=== PATIENT | female | born 1965 | race Two or more races ===

== ENCOUNTER 2024-04-12 20:10 | Emergency (ER) | payer OTHER ==
[~2024-04-12] VITALS: Ht 165.1 cm; Wt 145.9 kg
[2024-04-12] MEDS ORDERED: LACT10SO3 PO (21:28)
[2024-04-12 21:46] VITALS: TEMP 99.2; O2SAT 95
[2024-04-12 21:49] LABS: Urine Bacteria None Seen /hpf (None Seen)
[2024-04-12 22:09] LABS: Urine Blood Negative /uL (Negative); Urine Clarity Clear (Clear); Urine Color Light-Yellow (Yellow); Urine Protein, UAD TRACE (Negative); Urine Specific Gravity 1.023 (1.001-1.035); Urine Urobilinogen Normal (Negative); Urine WBC <1 /hpf (0 - 5); Urine pH 7.5 (5.0-9.0)
[2024-04-12] MEDS: HYDROmorphone HCL 2 MG/ML VL/or syr IM ONE (23:05)
[2024-04-12 23:44] VITALS: BP 166/88; PULSE 87; RESP 18
== END 2024-04-13 00:01 | disposition home or self-care (01) ==
LOC: ER 20:10
DX: M54.41 Lumbago with sciatica, right side (principal); M54.42 Lumbago with sciatica, left side; K59.00 Constipation, unspecified; G89.29 Other chronic pain; E66.01 Morbid (severe) obesity due to excess calories; Z68.43 Body mass index [BMI] 50.0-59.9, adult
CPT/HCPCS: 81001; 96372; 99283; J1171

== ENCOUNTER 2024-05-24 10:56 | Inpatient (IN) | payer OTHER ==
[~2024-05-24] VITALS: Ht 165.1 cm; Wt 138.1 kg
[~2024-05-24 10:56] MED LIST: LACT10SO3 PO
--- NOTE | 2024-05-24 11:28 | ECG ---
[facility] Test Date: 2024-05-24 Test Time: 11:08:47 Pat Name: LETI NEW Department: ER Room: [address] [place] [address] Gender: F Staff Interpreter: AIDEN : 1965 Requested By: EMERGENCY EMERGENCY Order Number: [id number] Reading MD: Bandar Corrigan Measurements Intervals [place] Rate: 113 P: 66 IL: 143 QRS: 31 QRSD: 105 T: 74 QT: 313 QTc: 430 Interpretive Statements Sinus tachycardia Right atrial enlargement Electronically Signed On 05-26-2024 8:25:13 PST by Bandar Corrigan Please click the below link to view image of tracing.
[2024-05-24 11:59] LABS: Urine Bacteria FEW /hpf (None Seen); Urine Blood Negative /uL (Negative); Urine Clarity Turbid (Clear); Urine Color Yellow (Yellow); Urine Mucus FEW (None Seen); Urine Protein, UAD 2+ (Negative); Urine Specific Gravity 1.025 (1.001-1.035); Urine Urobilinogen Normal (Negative); Urine WBC 6 /hpf (0 - 5); Urine pH 5.5 (5.0-9.0)
[2024-05-24 12:10] LABS: Basophils # (auto) 0 10 ^3/uL (0-0.2); Basophils % (auto) 0.2 % (0.0-2.0); Eosinophils # (auto) 0 10 ^3/uL (0-0.8); Eosinophils % (auto) 0.3 % (0.0-7.0); Hemoglobin 12.5 g/dL (12.2-16.2); Lymphocytes # (auto) 0.3 10 ^3/uL (0.4-5.4); Lymphocytes % (auto) 1.9 % (10.0-50.0); Mean Corpuscular Hemoglobin 29.6 pg (28.0-32.0); Mean Corpuscular Volume 89.7 fL (80.0-100.0); Monocytes # (auto) 0.4 10 ^3/uL (0-1.3); Monocytes % (auto) 3.4 % (0.0-12.0); Neutrophils # (auto) 12.3 10 ^3/uL (1.6-8.6); Neutrophils % (auto) 94.2 % (37.0-80.0); Platelet Count (auto) 195 10^3/uL (140-450); Red Blood Cells 4.23 10^6/uL (4.0-5.20); Red Cell Distribution Width 14.2 % (11.8-14.3)
[2024-05-24 12:25] LABS: Alanine Aminotransferase 16 U/L (7-40); Albumin 4.1 g/dL (3.2-4.8); Alkaline Phosphatase 95 U/L (46-116); Anion Gap 8 (5-15); Aspartate Aminotransferase 16 U/L (13-40); BUN/Creatinine Ratio 14.9 (10.0-20.0); Bilirubin, Total 0.5 mg/dL (0.2-1.0); Blood Urea Nitrogen 15 mg/dL (9-23); Calcium 9.9 mg/dL (8.7-10.4); Carbon Dioxide 25 mmol/L (20-31); Chloride 102 mmol/L (98-107); Glucose 161 mg/dL (74-106); Potassium 4.2 mmol/L (3.5-5.1); Sodium 135 mmol/L (136-145); Total Protein 7.1 g/dL (5.7-8.2)
[2024-05-24 12:27] LABS: Lactic Acid w/Reflex 2.2 mmol/L (0.4-2.0)
--- NOTE | 2024-05-24 12:48 | ED.PDOC ---
Musculoskeletal HPI Comments 58-year-old female complaining of bilateral leg pain and swelling for the last three weeks. States the right side has become worse than the left. States she was has not noticed some intermittent fatigue. Intermittent chest pains that are sharp in nature lasting 20 seconds. Patient does come in with fever and tachycardia. States she does have a prior history of lymphedema but no CHF. She was taking 20 mg Lasix but has not been taking it over the last few weeks into sinus started taking it again today. Chief Complaint: Extremity Swelling Time Seen by MD: 11:01 Primary Care Provider: OSCAR Davis Notes: Nurses Notes Allergies: Coded Allergies: Amoxicillin (Verified Allergy, Unknown, 05/24/24) Doxycycline (Verified Allergy, Unknown, 05/24/24) Uncoded Allergies: FLU SHOT (Allergy, Unknown, 05/24/24) Home Meds Active Scripts Lactulose (Lactulose) 10 Gm/15 Ml Johana, 10 GM PO Q8HP PRN, #200 ML Prov:CORRIE VICENTE PAC 04/12/24 Information Source: Patient Mode of Arrival: Ambulatory Location: Bilateral Extremity Location: Leg Past Medical History PAST MEDICAL HISTORY: Denies Surgical History: Denies all surgeries DRUG ABUSE WORKER History: No Pertinent DRUG ABUSE WORKER History Family History Family History: Reviewed,noncontributory to illness, No family hx of Cancer, No family hx of DM, No family hx of Heart zachery, No family hx of HTN, No family hx ofKidney zachery, No family hx of Liver zachery, No family hx of Lung zachery, No family hx of Stroke Social History Smoker: Non-Smoker Alcohol: Denies ETOH Use Drugs: Denies Drug Use Lives In: Home Constitutional: denies: chills, diaphoresis, fatigue, fever, malaise, sweats, weakness, others EENTM: denies: blurred vision, double vision, ear bleeding, ear discharge, ear drainage, ear pain, ear ringing, eye pain, eye redness, hearing loss, mouth pain, mouth swelling, nasal discharge, nose bleeding, nose congestion, nose pain, photophobia, tearing, throat pain, throat swelling, voice changes, others Respiratory: reports: SOB at rest; denies: cough, hemoptysis, orthopnea, shortness of breath, SOB with excertion, stridor, wheezing, others Cardiovascular: reports: chest pain; denies: dizzy spells, diaphoresis, Dyspnea on exertion, edema, irregular heart beat, left arm pain, lightheadedness, palpitations, PND, syncope, others Gastrointestinal: denies: abdomen distended, abdominal pain, blood streaked bowels, constipated, diarrhea, dysphagia, difficulty swallowing, hematemesis, melena, nausea, poor appetite, poor fluid intake, rectal bleeding, rectal pain, vomiting, others Genitourinary: denies: abnormal vagina bleeding, burning, dyspareunia, dysuria, flank pain, frequency, hematuria, incontinence, pain, , vagina discharge, urgency, others Neurological: denies: dizziness, fainting, headache, left sided numbness, left sided weakness, numbness, paresthesia, pre-existing deficit, right sided numbnes s, right sided weakness, seizure, speech problems, tingling, tremors, weakness, others Musculoskeletal: denies: back pain, gout, joint pain, joint swelling, muscle pain, muscle stiffness, neck pain, others Integumetry: denies: bruises, change in color, change in hair/nails, dryness, laceration, lesions, lumps, rash, wounds, others Allergic/Immunocompromised: denies: Difficulty Healing, Frequent Infections, Hives, Itching, others Hematologic/Lymphatic: denies: anemia, blood clots, easy bleeding, easy bruising, swollen glands, others Physical Exam General Appearance: No Apparent Distress, Normal HEENT: Normal ENT Inspection, Pharynx Normal, TMs Normal Neck: Full Range of Motion, Non-Tender, Normal, Normal Inspection Respiratory: Chest Non-Tender, Lungs Clear, No Accessory Muscle Use, No Respiratory Distress, Normal Breath Sounds Cardiovascular: No Edema, No JVD, No Murmur, No Gallop, Normal Peripheral Pulses, Regular Rate/Rhythm Breast Exam: Deferred Gastrointestinal: No Organomegaly, Non Tender, No Pulsatile Mass, Normal Bowel Sounds, Soft Genitalia: Deferred Pelvic: Deferred Rectal: Deferred Extremities: No calf tenderness, Normal capillary refill, Normal inspection, Normal range of motion, Non-tender, No pedal edema Musculoskeletal : Location: Bilateral Extremity Location: Other (Lymphedema noted in bilateral lower extremities. Erythemic noted going up to mid shaft in bilateral lower extremities. Bilateral anterior lower extremities are warm to the touch. There is weeping noted on the right lower extremity.) Apperance: Normal Neurologic: Alert, boring machine operator production II-XII nml as Tested, No Motor Deficits, Normal Affect, Normal Mood, No Sensory Deficits Cerebellar Function: Normal Reflexes: Normal Skin: Dry, Normal Color, Warm Lymphatic: No Adenopathy Was a procedure done? Was a procedure done?: No Differential Diagnosis EXT Differential Diagnosis: Cellulitis, Deep Vein Thrombosis, Neurovascular injury, Arthritis, Bursitis, Other X-Ray, Labs, Meds, VS Vital Signs Date Time Temp Pulse Resp B/P (MAP) Pulse Ox O2 Delivery O2 Flow Rate FiO2 05/24/24 11:08 113 05/24/24 11:01 100.9 110 24 171/95 (120) 99 Lab Test 05/24/24 11:53 05/24/24 11:05 05/24/24 11:03 Range/Units White Blood Count 13.0 H 4.4-10.8 10^3/uL Red Blood Count 4.23 4.0-5.20 10^6/uL Hemoglobin 12.5 12.2-16.2 g/dL Hematocrit 38.0 36.0-46.0 % Mean Corpuscular Volume 89.7 80.0-100.0 fL Mean Corpuscular Hemoglobin 29.6 28.0-32.0 pg Mean Corpuscular Hemoglobin Concent 33.0 32.0-36.0 g/dL Red Cell Distribution Width 14.2 11.8-14.3 % Platelet Count 195 140-450 10^3/uL Mean Platelet Volume 8.6 6.9-10.8 fL Neutrophils (%) (Auto) 94.2 H 37.0-80.0 % Lymphocytes (%) (Auto) 1.9 L 10.0-50.0 % Monocytes (%) (Auto) 3.4 0.0-12.0 % Eosinophils (%) (Auto) 0.3 0.0-7.0 % Basophils (%) (Auto) 0.2 0.0-2.0 % Neutrophils # (Auto) 12.3 H 1.6-8.6 10 ^3/uL Lymphocytes # (Auto) 0.3 L 0.4-5.4 10 ^3/uL Monocytes # (Auto) 0.4 0-1.3 10 ^3/uL Eosinophils # (Auto) 0 0-0.8 10 ^3/uL Basophils # (Auto) 0 0-0.2 10 ^3/uL Nucleated Red Blood Cells 0.0 % Sodium Level 135 L 136-145 mmol/L Potassium Level 4.2 3.5-5.1 mmol/L Chloride Level 102 98-107 mmol/L Carbon Dioxide Level 25 20-31 mmol/L Anion Gap 8 5-15 Blood Urea Nitrogen 15 9-23 mg/dL Creatinine 1.01 0.550-1.02 mg/dL Glomerular Filtration Rate Calc 65 >90 mL/min BUN/Creatinine Ratio 14.9 10.0-20.0 Serum Glucose 161 H 74-106 mg/dL Lactic Acid Level 2.2 *H 0.4-2.0 mmol/L Calcium Level 9.9 8.7-10.4 mg/dL Total Bilirubin 0.5 0.2-1.0 mg/dL Aspartate Amino Transferase (AST) 16 13-40 U/L Alanine Aminotransferase (ALT) 16 7-40 U/L Alkaline Phosphatase 95 46-116 U/L B-Type Natriuretic Peptide 25.87 0-100 pg/mL Total Protein 7.1 5.7-8.2 g/dL Albumin 4.1 3.2-4.8 g/dL Urine Color Yellow Yellow Urine Clarity Turbid H Clear Urine pH 5.5 5.0-9.0 Urine Specific [place] 1.025 1.001-1.035 Urine Protein 2+ H Negative Urine Ketones Negative Negative Urine Blood Negative Negative /uL Urine Nitrite Negative Negative Urine Bilirubin Negative Negative Urine Urobilinogen Normal Negative mg/dL Urine Leukocyte Esterase Negative Negative /uL Urine RBC 3 0 - 4 /hpf Urine WBC 6 0 - 5 /hpf Urine Squamous Epithelial Cells Few <5 /hpf Urine Bacteria Few H None Seen /hpf Urine Mucus Few None Seen Urine Glucose Normal Normal mg/dL POC Glucose 163 H 70-106 mg/dl X-Ray, Labs, Meds, VS Comment Patient will be admitted for cellulitis of the lower extremities Concerns of possible sepsis due to tachycardia and fever Patient will be started on normal saline and vancomycin Patient was poor medication compliance at home we will need further education. Time of 1ST Reevaluation: 12:48 Reevaluation 1ST: Unchanged Patient Education/Counseling: Diagnosis, Treatment Family Education/Counseling: Diagnosis Departure 1 Departure Time of Disposition: 12:47 Impression: Primary Impression: Lymphedema Additional Impressions: Cellulitis Qualified Codes: L03.119 - Cellulitis of unspecified part of limb Septicemia Disposition: ADMITTED INPATIENT Condition: Fair Critical Care Note Critical Care Time?: No Stability Stability form required: No Heart Score Heart Score: Heart Score Response (Comments) Value History Slightly Suspicious 0 EKG Normal 0 Age 45-64 1 Risk Factors No known risk factors 0 Troponin Normal limit 0 Total 1 ESSIE GUAMANP May 24, 2024 12:48
--- NOTE | 2024-05-24 12:50 | DVH ---
US BiLat Lower DVT HISTORY: leg redness/swelling COMPARISON: None TECHNIQUE: Duplex Doppler evaluation of the deep venous system of the lower extremity from the common femoral veins, superficial femoral vein, great saphenous vein, deep femoral vein, popliteal vein, an d calf veins, including color Doppler and spectral/pulsed waveform analysis, was performed. FINDINGS: Right: - Common femoral vein: Compressible - Deep femoral vein: Compressible - Femoral vein: Compressible - Popliteal vein: Compressible - Posterior tibial vein: Waveforms present - Peroneal vein: Not seen - Other: Right inguinal enlarged lymph node Left: - Common femoral vein: Compressible - Deep femoral vein: Compressible - Femoral vein: Compressible - Popliteal vein: Compressible - Posterior tibial vein: Waveforms present - Peroneal vein: Not seen - Other: Nothing IMPRESSION: No right or left lower extremity deep venous thrombosis.
[2024-05-24] MEDS: SODIUM CHLORIDE 0.9% 1,000 ML IV ONE (13:43)
[2024-05-24] MEDS: VANCOMYCIN 1GM/200ML PREMIX 200 ML IV ONE ×2 (14:14→21:45)
[2024-05-24] MEDS: MORPHINE SULFATE 4 MG/ML SYR/VIAL IV ONE (17:29)
[2024-05-24] MEDS: ONDANSETRON HCL 4 MG/2 ML VIAL IV ONE (17:30)
[2024-05-24] MEDS ORDERED: LORazepam 0.5 MG TAB PO PRN (19:45)
[2024-05-24] MEDS ORDERED: MAALOX PLUS or MAALOX 30 ML PO PRN (19:45)
[2024-05-24] MEDS ORDERED: TEMAZEPAM 15 MG CAP PO PRN (19:45)
[2024-05-24] MEDS ORDERED: ACETAMINOPHEN 325 MG TAB PO PRN (19:45)
--- NOTE | 2024-05-24 19:50 | DVHHP2 ---
History of Present Illness Reason for Visit: swelling legs History of Present Illness 58 yo with a stated history of stated lymphemeda but denies history of CHF or hypertension comes for complaints of leg pain and swelling and the inability to control the swelling in the legs came to the ed and was recommended for admission for further evaluation Review of Systems Constitutional: No: Fever, Chills, Sweats, Weakness, Malaise, Other Eyes: No: Pain, Vision change, Conjunctivae inflammation, Eyelid inflammation, Other, Redness ENT: No: Ear pain, Ear discharge, Nose pain, Nose discharge, Nose congestion, Mouth pain, Mouth swelling, Throat pain, Throat swelling, Other Respiratory: No: Cough, Dry, Shortness of breath, SOB with excertion, Wheezing, Hemoptysis, Pleuritic Pain, Sputum, Wheezing, Other Cardiovascular: No: Chest Pain, Palpitations, Orthopnea, Paroxysmal Noc. Dyspnea, Edema, Lt Headedness, Other Gastrointestinal: No: Nausea, Vomiting, Abdominal Pain, Diarrhea, Constipation, Melena, Hematochezia, Other Genitourinary: No Dysuria, No Frequency, No Incontinence, No Hematuria, No Retention, No Other Musculoskeletal: arm pain; No: other, neck pain, shoulder pain, back pain, hand pain, leg pain, foot pain Skin: No: Rash, Lesions, Jaundice, Bruising, Other Neurological: No: Weakness, Numbness, Incoordination, Change in speech, Confusion, Seizures, Other Allergies: Coded Allergies: Amoxicillin (Verified Allergy, Unknown, 05/24/24) Doxycycline (Verified Allergy, Unknown, 05/24/24) Uncoded Allergies: FLU SHOT (Allergy, Unknown, 05/24/24) Exam Vital Signs Vital Signs Date Time Temp Pulse Resp B/P (MAP) Pulse Ox O2 Delivery O2 Flow Rate FiO2 05/24/24 18:17 111 15 110/53 (72) 95 05/24/24 13:34 Room Air 05/24/24 13:34 0 21 05/24/24 11:01 100.9 General Appearance: Alert, Oriented X3 HEENT: Atraumatic, PERRLA Respiratory: Clear to auscultation, Normal air movement Cardiovascular: Regular rate, Normal S1, Normal S2 Abdominal: Normal bowel sounds, Soft Extremities: No clubbing, No cyanosis, No edema (b/l edema noted ) Skin: No rashes, No breakdown Neuro: Normal speech Psych/Mental Status: Mood NL Labs/Xrays Labs Test 05/24/24 14:00 05/24/24 11:53 05/24/24 11:05 05/24/24 11:03 Range/Units Lactic Acid Level 1.5 0.4-2.0 mmol/L White Blood Count 13.0 H 4.4-10.8 10^3/uL Red Blood Count 4.23 4.0-5.20 10^6/uL Hemoglobin 12.5 12.2-16.2 g/dL Hematocrit 38.0 36.0-46.0 % Mean Corpuscular Volume 89.7 80.0-100.0 fL Mean Corpuscular Hemoglobin 29.6 28.0-32.0 pg Mean Corpuscular Hemoglobin Concent 33.0 32.0-36.0 g/dL Red Cell Distribution Width 14.2 11.8-14.3 % Platelet Count 195 140-450 10^3/uL Mean Platelet Volume 8.6 6.9-10.8 fL Neutrophils (%) (Auto) 94.2 H 37.0-80.0 % Lymphocytes (%) (Auto) 1.9 L 10.0-50.0 % Monocytes (%) (Auto) 3.4 0.0-12.0 % Eosinophils (%) (Auto) 0.3 0.0-7.0 % Basophils (%) (Auto) 0.2 0.0-2.0 % Neutrophils # (Auto) 12.3 H 1.6-8.6 10 ^3/uL Lymphocytes # (Auto) 0.3 L 0.4-5.4 10 ^3/uL Monocytes # (Auto) 0.4 0-1.3 10 ^3/uL Eosinophils # (Auto) 0 0-0.8 10 ^3/uL Basophils # (Auto) 0 0-0.2 10 ^3/uL Nucleated Red Blood Cells 0.0 % Sodium Level 135 L 136-145 mmol/L Potassium Level 4.2 3.5-5.1 mmol/L Chloride Level 102 98-107 mmol/L Carbon Dioxide Level 25 20-31 mmol/L Anion Gap 8 5-15 Blood Urea Nitrogen 15 9-23 mg/dL Creatinine 1.01 0.550-1.02 mg/dL Glomerular Filtration Rate Calc 65 >90 mL/min BUN/Creatinine Ratio 14.9 10.0-20.0 Serum Glucose 161 H 74-106 mg/dL Calcium Level 9.9 8.7-10.4 mg/dL Total Bilirubin 0.5 0.2-1.0 mg/dL Aspartate Amino Transferase (AST) 16 13-40 U/L Alanine Aminotransferase (ALT) 16 7-40 U/L Alkaline Phosphatase 95 46-116 U/L B-Type Natriuretic Peptide 25.87 0-100 pg/mL Total Protein 7.1 5.7-8.2 g/dL Albumin 4.1 3.2-4.8 g/dL Urine Color Yellow Yellow Urine Clarity Turbid H Clear Urine pH 5.5 5.0-9.0 Urine Specific [place] 1.025 1.001-1.035 Urine Protein 2+ H Negative Urine Ketones Negative Negative Urine Blood Negative Negative /uL Urine Nitrite Negative Negative Urine Bilirubin Negative Negative Urine Urobilinogen Normal Negative mg/dL Urine Leukocyte Esterase Negative Negative /uL Urine RBC 3 0 - 4 /hpf Urine WBC 6 0 - 5 /hpf Urine Squamous Epithelial Cells Few <5 /hpf Urine Bacteria Few H None Seen /hpf Urine Mucus Few None Seen Urine Glucose Normal Normal mg/dL POC Glucose 163 H 70-106 mg/dl Assessment/Plan Assessment/Plan Admit Med/Surg Leg swelling r/o cellulitis iv abx believe exacerbation lymphedema intractable pain prn pain meds lasix bid started low dose titrate as tolerated by the patient Plan discussed with: Patient My Orders Orders - LOYD ECHEVARRIA MD Procedure Category Date Status Time Chest Xray 1 View XY 05/24/24 Logged 19:33 Furosemide Injection PHA 05/24/24 Transmitted (Lasix Injection) 22:00 Ceftriaxone Ivpb PHA 05/24/24 Transmitted Rocephin 19:45 (Nf) Lactulose PHA 05/24/24 Transmitted 19:45 Admit ADMIT 05/24/24 Transmitted 19:33 Code Status CODE 05/24/24 Transmitted 19:33 Vital Signs LESLEY 05/24/24 Transmitted 19:33 Review Orders With LESLEY 05/24/24 Transmitted 19:33 Regular Diet DIET 05/25/24 Transmitted Breakfast Lorazepam Tablet PHA 05/24/24 Transmitted (Ativan Tablet) 19:45 Alum & Mag PHA 05/24/24 Transmitted Hydrox-Simethicone 19:45 Docusate Sodium PHA 05/24/24 Transmitted Capsule (Colace 19:45 Acetaminophen Tablet PHA 05/24/24 Transmitted (Tylenol Tablet) 19:45 Temazepam (Restoril) PHA 05/24/24 Transmitted 19:45 Notify Md Of Changes [facility] 05/24/24 Transmitted From Base 19:33 Advance Directive [facility] 05/24/24 Transmitted 19:33 Basic Metabolic Panel LAB 05/25/24 Verified 04:00 Complete Blood Count LAB 05/25/24 Verified 04:00 Patient Condition ORDERS 05/24/24 Transmitted 19:33 Allergies [facility] 05/24/24 Transmitted 19:33 Hydrocodone-Acet PHA 05/24/24 Transmitted 5/325mg Tab ([place] 19:45 Ondansetron Hcl PHA 05/24/24 Transmitted (Zofran) 19:45 Morphine 2mg Iv Q4hprn PHA 05/24/24 Transmitted 19:45 Notify Md Of Changes [facility] 05/24/24 Transmitted From Base 19:33 Balling Head Tender For [facility] 05/24/24 Transmitted 24 Hours 19:33 Oxygen By Nasal RT 05/24/24 Transmitted Cannula 19:33 Problem List: (1) Chronic low back pain with bilateral sciatica (2) Septicemia (3) Cellulitis (4) Lymphedema Date of Service: May 24, 2024 Billing Provider: LOYD ECHEVARRIA MD Common Visit Codes: [id number] INP/OBS CARE (HIGH) LOYD ECHEVARRIA MD May 24, 2024 19:50
[2024-05-24] MEDS ORDERED: VANCOMYCIN PER PHARMACY 0 MG IV SCH (20:00)
[2024-05-24] MEDS ORDERED: LACTULOSE 20Gm/30ML SOLN PO PRN (20:00)
--- NOTE | 2024-05-24 20:04 | DVH ---
CHEST RADIOGRAPH Indication: swelling Technique: Single frontal view of the chest was obtained COMPARISON: None FINDINGS: Lines and Tubes: None Lungs: Clear Pleura: No effusion. No pneumothorax. Cardiomediastinal contours: Unremarkable Bones: Unremarkable IMPRESSION: 1. No acute disease.
[2024-05-24] MEDS: MORPHINE SULFATE INJ 2 MG/ml SYRG IV PRN (21:01)
[2024-05-24] MEDS: FUROSEMIDE 20 MG/2 ML VIAL IV SCH (22:19)
[2024-05-25 04:43] LABS: Hematocrit 37.4 % (36.0-46.0); Hemoglobin 12.4 g/dL (12.2-16.2); Mean Corpuscular Hemoglobin 29.8 pg (28.0-32.0); Mean Corpuscular Hgb Conc. 33.3 g/dL (32.0-36.0); Mean Corpuscular Volume 89.5 fL (80.0-100.0); Platelet Count (auto) 191 10^3/uL (140-450); Red Blood Cells 4.17 10^6/uL (4.0-5.20); Red Cell Distribution Width 14.1 % (11.8-14.3); White Blood Cell 15.7 10^3/uL (4.4-10.8)
[2024-05-25 04:48] LABS: Chloride 101 mmol/L (98-107); Potassium 3.6 mmol/L (3.5-5.1); Sodium 136 mmol/L (136-145)
[2024-05-25 04:49] LABS: Anion Gap 10 (5-15); Basophils % (manual) 0 (0.0-2.0); Blast Cells 0; Carbon Dioxide 25 mmol/L (20-31); Eosinophils % (manual) 0 (0-7); Lymphocytes % (manual) 0 (10.0-50.0); Metamyelocytes % 0; Myelocytes % 0; Promyelocytes % 0; Reactive Lymphocytes 0
[2024-05-25 04:50] LABS: Calcium 9.4 mg/dL (8.7-10.4)
[2024-05-25 04:54] LABS: BUN/Creatinine Ratio 14.8 (10.0-20.0); Blood Urea Nitrogen 18 mg/dL (9-23); Glucose 160 mg/dL (74-106)
[2024-05-25] MEDS: cefTRIAXone 1GM/50ML D5W 50 ML IV SCH (08:49)
[2024-05-25 08:51] LABS: Band Neutrophils % (manual) 10; Monocytes % (manual) 3 (0-12)
[2024-05-25 08:52] LABS: Platelet Estimate Adequate; RBC Morphology Normal
[2024-05-25 10:15] VITALS: BP 128/72; PULSE 101; TEMP 99.8; O2SAT 95
[2024-05-25 11:54] LABS: Hepatitis B Surface Antigen Negative (Negative)
[2024-05-25] MEDS: VANCOMYCIN 1GM/200ML PREMIX 200 ML IV SCH (12:15)
[2024-05-25 12:16] LABS: Hepatitis C Antibody Negative (Negative)
[2024-05-25] MEDS: HYDROcodone-ACET 5/325MG TAB PO PRN (12:36)
[2024-05-25 17:18] VITALS: BP 111/58; PULSE 102; RESP 20; TEMP 99.6; O2SAT 95
[2024-05-25 17:25] VITALS: PULSE 102; RESP 20; O2SAT 95
--- NOTE | 2024-05-25 17:43 | DVHPN2 ---
Subjective Seen and examined at bedside, cont Abx. Will get Arterial Duplex. Changes from previous H/P or p: No Changes Eyes: No Pain, No Vision change, No Conjunctivae inflammation, No Eyelid inflammation, No Other, No Redness ENT: No Ear pain, No Ear discharge, No Nose pain, No Nose discharge, No Nose congestion, No Mouth pain, No Mouth swelling, No Throat pain, No Throat swelling, No Other Cardiovascular: No Chest Pain, No Palpitations, No Orthopnea, No Paroxysmal Noc. Dyspnea, No Edema, No Lt Headedness, No Other Respiratory: No Cough, No Dry, No Shortness of breath, No SOB with excertion, No Wheezing, No Hemoptysis, No Pleuritic Pain, No Sputum, No Other Gastrointestinal: No Nausea, No Vomiting, No Abdominal Pain, No Diarrhea, No Constipation, No Melena, No Hematochezia, No Other Genitourinary: No Dysuria, No Frequency, No Incontinence, No Hematuria, No Retention, No Other Musculoskeletal: No other, No neck pain, No shoulder pain, No back pain, No hand pain, No leg pain, No foot pain Skin: No Rash, No Lesions, No Jaundice, No Bruising, No Other Objective Vitals Vital Signs Date Time Temp Pulse Resp B/P (MAP) Pulse Ox O2 Delivery O2 Flow Rate FiO2 05/25/24 17:25 102 20 95 Room Air* 0 21 05/25/24 17:18 99.6 111/58 (75) 99.6 Intake/Output Intake and Output 05/25/24 07:00 Intake Total 1400 ml Balance 1400 ml IV Total 1400 ml Exam Gen: in bed NAD Cvs: N S1/S2, RRR Resp: BLAE Abd: Soft, NT Supervisor Wrapping Room: AAO x 4 Ext: 4+ edema, right LE redness and swelling, lymphedema Medications Current Medications Medications Dose Ordered Sig/Lyudmila Route Start Time Stop Time Status Last Admin Dose Admin Furosemide 20 mg BID IV 05/24/24 22:00 05/25/24 10:05 20 MG Ceftriaxone Sodium 50 ml @ 100 mls/hr DAILY IV 05/24/24 19:45 05/25/24 08:49 100 MLS/HR Lactulose 15 ml Q8HPRN PRN PO 05/24/24 20:00 Lorazepam 0.5 mg Q6HP PRN PO 05/24/24 19:45 Al Hydrox/Mg Hydrox/Simethicone 30 ml Q6HP PRN PO 05/24/24 19:45 Docusate Sodium 100 mg BIDPRN PRN PO 05/24/24 19:45 Acetaminophen 650 mg Q6HP PRN PO 05/24/24 19:45 Temazepam 15 mg QHSP PRN PO 05/24/24 19:45 Acetaminophen/ Hydrocodone Bitart 1 tab Q4HP PRN PO 05/24/24 19:45 05/25/24 12:36 1 TAB Ondansetron HCl 4 mg Q4HP PRN IV 05/24/24 19:45 Morphine Sulfate 2 mg Q4HPRN PRN IV 05/24/24 19:45 05/24/24 21:01 2 MG Vancomycin HCl 0 ml @ 0 mls/hr UD IV 05/24/24 20:00 Vancomycin HCl 200 ml @ 200 mls/hr Q12H IV 05/25/24 12:00 05/25/24 12:15 200 MLS/HR Laboratory Results Laboratory Tests 05/25/24 04:05 Chemistry Test 05/25/24 04:05 Calcium Level 9.4 mg/dL (8.7-10.4) Urinalysis Test 05/24/24 11:05 Urine Color Yellow (Yellow) Urine Clarity Turbid (Clear) H Urine pH 5.5 (5.0-9.0) Urine Specific [place] 1.025 (1.001-1.035) Urine Protein 2+ (Negative) H Urine Ketones Negative (Negative) Urine Blood Negative /uL (Negative) Urine Nitrite Negative (Negative) Urine Bilirubin Negative (Negative) Urine Urobilinogen Normal mg/dL (Negative) Urine Leukocyte Esterase Negative /uL (Negative) Urine RBC 3 /hpf (0 - 4) Urine WBC 6 /hpf (0 - 5) Urine Squamous Epithelial Cells Few /hpf (<5) Urine Bacteria Few /hpf (None Seen) H Urine Mucus Few (None Seen) Urine Glucose Normal mg/dL (Normal) Assessment/Plan Assessment/Plan # Sepsis due to RLE Cellulitis - Patient has significant lymphedema - Cont Vanco and Rocephin # DM2 - A1c 6.3 # Morbidly Obese - Rfid Specialist on weight loss # DVT Prop- Lovenox Subq Plan discussed with: Patient My Orders Orders - NADINE KING MD Procedure Category Date Status Time Bilat Low Ext Art US 05/25/24 Logged Duplex 17:34 Basic Metabolic Panel LAB 05/26/24 Verified 04:00 Magnesium LAB 05/26/24 Verified 04:00 Potassium Er Tablet PHA 05/25/24 Logged (Klor-Con Tablet) 17:45 Date of Service: May 25, 2024 Billing Provider: NADINE KING MD Common Visit Codes: [id number] INP/OBS CARE(HIGH) NADINE KING MD May 25, 2024 17:43
[2024-05-25] MEDS: POTASSIUM CHL 20 Meq TABLET PO ONE (18:22)
[2024-05-25] MEDS: ERGOCALCIFEROL 50,000 UNIT(1.25MG) CAP PO SCH (18:22)
--- NOTE | 2024-05-25 19:06 | DVH ---
Bilateral Lower Extremity Arterial Duplex Date: 05/25/2024 06:14 PM Clinical History: PVD Comparison: US BILAT LOWER DVT on DOS: 05/24/24 Technique: Duplex Doppler evaluation including color Doppler and spectral/pulsed waveform analysis of the lower extremity arteries was performed. Findings: RIGHT Peak systolic velocities are as follows: SALES FACILITATOR 146 cm/s Deep femoral 93 cm/s SFA proximal 136 cm/s SFA mid-portion 135 cm/s SFA distal 146 cm/s Popliteal 75 cm/s Posterior tibial 97 cm/s Anterior tibial 93 cm/s Dorsalis pedis 134 cm/s The waveforms are multiphasic. LEFT Peak systolic velocities are as follows: SALES FACILITATOR 125 cm/s Deep femoral 99 cm/s SFA proximal 136 cm/s SFA mid-portion 136 cm/s SFA distal 136 cm/s Popliteal 129 cm/s Posterior tibial 63 cm/s Anterior tibial nonvisualized Dorsalis pedis 72 cm/s The waveforms are multiphasic. IMPRESSION: 1. Right anterior tibial artery is not definitively identified on the provided images. 2. There is no evidence for peripheral vascular insufficiency in the right lower extremity. 3. There is no evidence for peripheral vascular insufficiency in the left lower extremity. 4. No significant focal stenosis is identified. 5. END IMPRESSION: HS:Y
[2024-05-25 20:00] VITALS: PULSE 108; RESP 20; O2SAT 97
[2024-05-25 21:00] VITALS: BP 118/55; PULSE 112; RESP 19; TEMP 99; O2SAT 97
[2024-05-25] MEDS ORDERED: ACCU-CHEK COMFORT CURVE STRIP VI ONE (23:15)
[2024-05-25] MEDS ORDERED: InsuLIN REG 1unit/0.01ml Soln (100units/ml) SC ONE (23:15)
[2024-05-25] MEDS ORDERED: DEXTROSE (50%) 50ML SYRG IV PRN (23:15)
[2024-05-25] MEDS ORDERED: DEXTROSE (50%) 50ML SYRG IV ONE (23:15)
[2024-05-25] MEDS: DOCUSATE SOD 100 MG CAP PO PRN (23:56)
[2024-05-26] VITALS (8 sets, daily range): BP systolic 99–133; BP diastolic 50–67; PULSE 91–130; RESP 18–22; TEMP 98.6–99.7; O2SAT 90–96
[2024-05-26 06:20] LABS: Basophils # (auto) 0.1 10 ^3/uL (0-0.2); Basophils % (auto) 0.3 % (0.0-2.0); Eosinophils # (auto) 0.1 10 ^3/uL (0-0.8); Eosinophils % (auto) 0.7 % (0.0-7.0); Hematocrit 33.6 % (36.0-46.0); Hemoglobin 11.3 g/dL (12.2-16.2); Lymphocytes # (auto) 0.7 10 ^3/uL (0.4-5.4); Mean Corpuscular Hemoglobin 30.1 pg (28.0-32.0); Mean Corpuscular Hgb Conc. 33.6 g/dL (32.0-36.0); Mean Corpuscular Volume 89.7 fL (80.0-100.0); Monocytes # (auto) 0.6 10 ^3/uL (0-1.3); Monocytes % (auto) 3.7 % (0.0-12.0); Neutrophils # (auto) 16.1 10 ^3/uL (1.6-8.6); Neutrophils % (auto) 91.3 % (37.0-80.0); Platelet Count (auto) 178 10^3/uL (140-450); Red Blood Cells 3.74 10^6/uL (4.0-5.20); Red Cell Distribution Width 14.4 % (11.8-14.3); White Blood Cell 17.6 10^3/uL (4.4-10.8)
[2024-05-26] MEDS: ACCU-CHEK COMFORT CURVE STRIP VI SCH (06:21)
[2024-05-26] MEDS: InsuLIN REG 1unit/0.01ml Soln (100units/ml) SC SCH (06:26)
[2024-05-26 07:12] LABS: Anion Gap 5 (5-15); Calcium 9.1 mg/dL (8.7-10.4); Carbon Dioxide 23 mmol/L (20-31); Chloride 105 mmol/L (98-107); Potassium 3.6 mmol/L (3.5-5.1); Sodium 133 mmol/L (136-145)
[2024-05-26 07:18] LABS: Glucose 147 mg/dL (74-106)
[2024-05-26 07:19] LABS: BUN/Creatinine Ratio 18.2 (10.0-20.0); Blood Urea Nitrogen 20 mg/dL (9-23); Magnesium 1.7 mg/dL (1.6-2.6)
[2024-05-26] MEDS: ENOXAPARIN SOD 40 MG/0.4 ML SYRINGE SC SCH (09:14)
--- NOTE | 2024-05-26 15:14 | DVHPN2 ---
Subjective Seen and examined at bedside, cont Abx. Has a large blister on the right leg. Will Consult Dr. Robles Changes from previous H/P or p: No Changes Eyes: No Pain, No Vision change, No Conjunctivae inflammation, No Eyelid inflammation, No Other, No Redness ENT: No Ear pain, No Ear discharge, No Nose pain, No Nose discharge, No Nose congestion, No Mouth pain, No Mouth swelling, No Throat pain, No Throat swelling, No Other Cardiovascular: No Chest Pain, No Palpitations, No Orthopnea, No Paroxysmal Noc. Dyspnea, No Edema, No Lt Headedness, No Other Respiratory: No Cough, No Dry, No Shortness of breath, No SOB with excertion, No Wheezing, No Hemoptysis, No Pleuritic Pain, No Sputum, No Other Gastrointestinal: No Nausea, No Vomiting, No Abdominal Pain, No Diarrhea, No Constipation, No Melena, No Hematochezia, No Other Genitourinary: No Dysuria, No Frequency, No Incontinence, No Hematuria, No Retention, No Other Musculoskeletal: No other, No neck pain, No shoulder pain, No back pain, No hand pain, No leg pain, No foot pain Skin: No Rash, No Lesions, No Jaundice, No Bruising, No Other Objective Vitals Vital Signs Date Time Temp Pulse Resp B/P (MAP) Pulse Ox O2 Delivery O2 Flow Rate FiO2 05/26/24 13:00 99.7 98 18 133/67 (89) 95 99.7 05/26/24 08:00 Room Air* 0 21 Intake/Output Intake and Output 05/26/24 07:00 Intake Total 1050 ml Output Total 0 ml Balance 1050 ml Intake Oral 800 ml IV Total 250 ml Output Urine Total 0 ml # Voids 5 Exam Gen: in bed NAD Cvs: N S1/S2, RRR Resp: BLAE Abd: Soft, NT Pad Extraction Tender: AAO x 4 Ext: 4+ edema, right LE redness and swelling, lymphedema. Right leg large blister Medications Current Medications Medications Dose Ordered Sig/Lyudmila Route Start Time Stop Time Status Last Admin Dose Admin Furosemide 20 mg BID IV 05/24/24 22:00 05/26/24 09:13 20 MG Ceftriaxone Sodium 50 ml @ 100 mls/hr DAILY IV 05/24/24 19:45 05/26/24 09:13 100 MLS/HR Lactulose 15 ml Q8HPRN PRN PO 05/24/24 20:00 Lorazepam 0.5 mg Q6HP PRN PO 05/24/24 19:45 Al Hydrox/Mg Hydrox/Simethicone 30 ml Q6HP PRN PO 05/24/24 19:45 Docusate Sodium 100 mg BIDPRN PRN PO 05/24/24 19:45 05/25/24 23:56 100 MG Acetaminophen 650 mg Q6HP PRN PO 05/24/24 19:45 Temazepam 15 mg QHSP PRN PO 05/24/24 19:45 Acetaminophen/ Hydrocodone Bitart 1 tab Q4HP PRN PO 05/24/24 19:45 05/25/24 20:41 1 TAB Ondansetron HCl 4 mg Q4HP PRN IV 05/24/24 19:45 Morphine Sulfate 2 mg Q4HPRN PRN IV 05/24/24 19:45 05/24/24 21:01 2 MG Vancomycin HCl 0 ml @ 0 mls/hr UD IV 05/24/24 20:00 Vancomycin HCl 200 ml @ 200 mls/hr Q12H IV 05/25/24 12:00 05/26/24 11:20 200 MLS/HR Ergocalciferol 50,000 unit Q7D PO 05/25/24 17:45 05/25/24 18:22 50,000 UNIT Enoxaparin Sodium 40 mg DAILY SC 05/26/24 10:00 05/26/24 09:14 40 MG Diagnostic Test (Pha) 1 strip ACHS 05/26/24 07:00 05/26/24 11:20 1 STRIP Insulin Human Regular ACHS SC 05/26/24 07:00 05/26/24 11:21 3 UNITS Dextrose 50 ml UD PRN IV 05/25/24 23:15 Laboratory Results Laboratory Tests 05/26/24 05:44 Chemistry Test 05/26/24 05:44 Calcium Level 9.1 mg/dL (8.7-10.4) Magnesium Level 1.7 mg/dL (1.6-2.6) Urinalysis Test 05/24/24 11:05 Urine Color Yellow (Yellow) Urine Clarity Turbid (Clear) H Urine pH 5.5 (5.0-9.0) Urine Specific [place] 1.025 (1.001-1.035) Urine Protein 2+ (Negative) H Urine Ketones Negative (Negative) Urine Blood Negative /uL (Negative) Urine Nitrite Negative (Negative) Urine Bilirubin Negative (Negative) Urine Urobilinogen Normal mg/dL (Negative) Urine Leukocyte Esterase Negative /uL (Negative) Urine RBC 3 /hpf (0 - 4) Urine WBC 6 /hpf (0 - 5) Urine Squamous Epithelial Cells Few /hpf (<5) Urine Bacteria Few /hpf (None Seen) H Urine Mucus Few (None Seen) Urine Glucose Normal mg/dL (Normal) Assessment/Plan Assessment/Plan # Sepsis due to RLE Cellulitis - Patient has significant lymphedema - Cont Vanco and Rocephin # DM2 - A1c 6.3 # Morbidly Obese - [employer] on weight loss # DVT Prop- Lovenox Subq Plan discussed with: Patient My Orders Orders - NADINE KING MD Procedure Category Date Status Time Bilat Low Ext Art US 05/25/24 Resulted Duplex 17:34 Ergocalciferol PHA 05/25/24 In Process (Vitamin D 50,000 17:45 Enoxaparin Sodium PHA 05/26/24 In Process (Lovenox) 10:00 Elevate Affected LESLEY 05/25/24 In Process Extremity 17:43 Consistent DIET 05/26/24 Transmitted Carb(Ccho)Diabetes Breakfast Glucose Blood PHA 05/26/24 In Process (Accu-Chek Comfort 07:00 Insulin R (Human) PHA 05/26/24 In Process (Insulin R) 07:00 Dextrose 50% Syringe PHA 05/25/24 In Process 23:15 Consult CONS 05/26/24 Transmitted Vascular/Endovascular 13:52 Date of Service: May 26, 2024 Billing Provider: NADINE KING MD Common Visit Codes: [id number] INP/OBS CARE(HIGH) NADINE KING MD May 26, 2024 15:13
--- NOTE | 2024-05-26 15:29 | DVHCONRES ---
Date Seen: May 26, 2024 Resident Creating Document: MIGUELANGEL WETZEL Jr., MD Referring Physician Dr. chaidez Reason for Consultation lymphedema History of Present Illness 58 yo with a stated history of stated lymphemeda but denies history of CHF or hypertension comes for complaints of leg pain and swelling and the inability to control the swelling in the legs came to the ed and was recommended for admission for further evaluation. patient developed a blister in the lat. right calf. Past Medical History chf, lymphedema, htn Family History: Diabetes mellitus G8 MOTHER Social History negative Allergies: Coded Allergies: Amoxicillin (Verified Allergy, Unknown, 05/24/24) Doxycycline (Verified Allergy, Unknown, 05/24/24) Uncoded Allergies: FLU SHOT (Allergy, Unknown, 05/24/24) Home Meds Active Scripts Lactulose (Lactulose) 10 Gm/15 Ml Johana, 10 GM PO Q8HP PRN, #200 ML Prov:JULESCORRIE PAC 04/12/24 Current Medications Current Medications Medications (Trade) Dose Ordered Sig/Lyudmila Route PRN Reason Start Time Stop Time Status Last Admin Ergocalciferol (Vitamin D 50,000 Unit) 50,000 unit Q7D PO 05/25/24 17:45 05/25/24 18:22 Enoxaparin Sodium (Lovenox) 40 mg DAILY SC 05/26/24 10:00 05/26/24 09:14 Diagnostic Test (Pha) (Accu-Chek Comfort Curve T) 1 strip ACHS 05/26/24 07:00 05/26/24 11:20 Insulin Human Regular (InsuLIN R) ACHS SC 05/26/24 07:00 05/26/24 11:21 Dextrose 50 ml UD PRN IV Blood Sugar LESS THAN 60 05/25/24 23:15 Review of Systems all systems reviewed otherwise negative Vital Signs Vital Signs Date Time Temp Pulse Resp B/P (MAP) Pulse Ox O2 Delivery O2 Flow Rate FiO2 05/26/24 13:00 99.7 98 18 133/67 (89) 95 99.7 05/26/24 08:00 Room Air* 0 21 Physical Exam General Appearance: Alert, Oriented X3 HEENT: Atraumatic, PERRLA Respiratory: Clear to auscultation, Normal air movement Cardiovascular: Regular rate, Normal S1, Normal S2 Abdominal: Normal bowel sounds, Soft Extremities: No clubbing, No cyanosis, No edema (b/l edema noted. blister right lat. clalf drained. Labs/Diagnostic Data Labs Test 05/26/24 11:04 05/26/24 11:00 05/26/24 05:44 05/25/24 04:05 Range/Units POC Glucose 170 H 70-106 mg/dl Vancomycin Level Trough 12.4 H 5-10 ug/mL White Blood Count 17.6 H 4.4-10.8 10^3/uL Red Blood Count 3.74 L 4.0-5.20 10^6/uL Hemoglobin 11.3 L 12.2-16.2 g/dL Hematocrit 33.6 #L 36.0-46.0 % Mean Corpuscular Volume 89.7 80.0-100.0 fL Mean Corpuscular Hemoglobin 30.1 28.0-32.0 pg Mean Corpuscular Hemoglobin Concent 33.6 32.0-36.0 g/dL Red Cell Distribution Width 14.4 H 11.8-14.3 % Platelet Count 178 140-450 10^3/uL Mean Platelet Volume 8.8 6.9-10.8 fL Neutrophils (%) (Auto) 91.3 H 37.0-80.0 % Lymphocytes (%) (Auto) 4.0 L 10.0-50.0 % Monocytes (%) (Auto) 3.7 0.0-12.0 % Eosinophils (%) (Auto) 0.7 0.0-7.0 % Basophils (%) (Auto) 0.3 0.0-2.0 % Neutrophils # (Auto) 16.1 H 1.6-8.6 10 ^3/uL Lymphocytes # (Auto) 0.7 0.4-5.4 10 ^3/uL Monocytes # (Auto) 0.6 0-1.3 10 ^3/uL Eosinophils # (Auto) 0.1 0-0.8 10 ^3/uL Basophils # (Auto) 0.1 0-0.2 10 ^3/uL Nucleated Red Blood Cells 0.0 % Sodium Level 133 L 136-145 mmol/L Potassium Level 3.6 3.5-5.1 mmol/L Chloride Level 105 98-107 mmol/L Carbon Dioxide Level 23 20-31 mmol/L Anion Gap 5 5-15 Blood Urea Nitrogen 20 9-23 mg/dL Creatinine 1.10 H 0.550-1.02 mg/dL Glomerular Filtration Rate Calc 58 >90 mL/min BUN/Creatinine Ratio 18.2 10.0-20.0 Serum Glucose 147 H 74-106 mg/dL Calcium Level 9.1 8.7-10.4 mg/dL Magnesium Level 1.7 1.6-2.6 mg/dL Differential Total Cells Counted 100.0 100 Neutrophils % (Manual) 87 H 37.0-80.0 Band Neutrophils % (Manual) 10 Lymphocytes % (Manual) 0 L 10.0-50.0 Monocytes % (Manual) 3 0-12 Eosinophils % (Manual) 0 0-7 Basophils % (Manual) 0 0.0-2.0 Metamyelocytes % (manual) 0 Myelocytes % (Manual) 0 Promyelocytes % (Manual) 0 Blast Cells % (Manual) 0 Reactive Lymphocytes 0 Platelet Estimate Adequate Red Blood Cell Morphology Normal Hepatitis B Surface Antigen Negative Negative Hepatitis C Antibody Negative Negative Test 05/24/24 14:00 05/24/24 11:53 05/24/24 11:05 Range/Units Lactic Acid Level 1.5 0.4-2.0 mmol/L Total Bilirubin 0.5 0.2-1.0 mg/dL Aspartate Amino Transferase (AST) 16 13-40 U/L Alanine Aminotransferase (ALT) 16 7-40 U/L Alkaline Phosphatase 95 46-116 U/L B-Type Natriuretic Peptide 25.87 0-100 pg/mL Total Protein 7.1 5.7-8.2 g/dL Albumin 4.1 3.2-4.8 g/dL Urine Color Yellow Yellow Urine Clarity Turbid H Clear Urine pH 5.5 5.0-9.0 Urine Specific [place] 1.025 1.001-1.035 Urine Protein 2+ H Negative Urine Ketones Negative Negative Urine Blood Negative Negative /uL Urine Nitrite Negative Negative Urine Bilirubin Negative Negative Urine Urobilinogen Normal Negative mg/dL Urine Leukocyte Esterase Negative Negative /uL Urine RBC 3 0 - 4 /hpf Urine WBC 6 0 - 5 /hpf Urine Squamous Epithelial Cells Few <5 /hpf Urine Bacteria Few H None Seen /hpf Urine Mucus Few None Seen Urine Glucose Normal Normal mg/dL Plan/Recommendation lymphedema lateral leg blister. elevate legs compression diuresis antibiotics wound care consult. Plan discussed with: Patient MIGUELANGEL WETZEL Jr., MD May 26, 2024 15:29
[2024-05-26] MEDS: ONDANSETRON HCL 4 MG/2 ML VIAL IV PRN (22:45)
[2024-05-27] VITALS (8 sets, daily range): BP systolic 114–138; BP diastolic 56–94; PULSE 72–94; RESP 18–20; TEMP 97.7–98.3; O2SAT 92–99
[2024-05-27 10:17] LABS: Hematocrit 34.6 % (36.0-46.0); Hemoglobin 11.5 g/dL (12.2-16.2); Mean Corpuscular Hemoglobin 29.5 pg (28.0-32.0); Mean Corpuscular Hgb Conc. 33.2 g/dL (32.0-36.0); Mean Corpuscular Volume 88.9 fL (80.0-100.0); Platelet Count (auto) 206 10^3/uL (140-450); Red Cell Distribution Width 14.7 % (11.8-14.3); White Blood Cell 17.6 10^3/uL (4.4-10.8)
[2024-05-27 10:22] LABS: Chloride 101 mmol/L (98-107); Potassium 3.4 mmol/L (3.5-5.1); Sodium 135 mmol/L (136-145)
[2024-05-27 10:23] LABS: Anion Gap 6 (5-15); Carbon Dioxide 28 mmol/L (20-31)
[2024-05-27 10:28] LABS: BUN/Creatinine Ratio 18.8 (10.0-20.0); Blood Urea Nitrogen 18 mg/dL (9-23); Glucose 184 mg/dL (74-106)
[2024-05-27 10:29] LABS: Basophils % (manual) 0 (0.0-2.0); Blast Cells 0; Metamyelocytes % 0; Myelocytes % 0; Promyelocytes % 0; Reactive Lymphocytes 0
[2024-05-27 10:43] LABS: Band Neutrophils % (manual) 2; Eosinophils % (manual) 2 (0-7); Lymphocytes % (manual) 14 (10.0-50.0); Monocytes % (manual) 4 (0-12); Platelet Estimate Adequate; RBC Morphology Normal
[2024-05-27] MEDS: LACTULOSE 20Gm/30ML SOLN PO ONE (11:22)
--- NOTE | 2024-05-27 14:11 | DVHPN2 ---
Subjective He complains of severe pain in the right leg The edema is not better yet WBCs still high Potassium 3.4 Complains of constipation Changes from previous H/P or p: Changes Eyes: No Pain, No Vision change, No Conjunctivae inflammation, No Eyelid inflammation, No Other, No Redness ENT: No Ear pain, No Ear discharge, No Nose pain, No Nose discharge, No Nose congestion, No Mouth pain, No Mouth swelling, No Throat pain, No Throat swelling, No Other Cardiovascular: No Chest Pain, No Palpitations, No Orthopnea, No Paroxysmal Noc. Dyspnea, No Edema, No Lt Headedness, No Other Respiratory: No Cough, No Dry, No Shortness of breath, No SOB with excertion, No Wheezing, No Hemoptysis, No Pleuritic Pain, No Sputum, No Other Gastrointestinal: No Nausea, No Vomiting, No Abdominal Pain, No Diarrhea, No Constipation, No Melena, No Hematochezia, No Other Genitourinary: No Dysuria, No Frequency, No Incontinence, No Hematuria, No Retention, No Other Musculoskeletal: No other, No neck pain, No shoulder pain, No back pain, No hand pain, No leg pain, No foot pain Skin: No Rash, No Lesions, No Jaundice, No Bruising, No Other Objective Vitals Vital Signs Date Time Temp Pulse Resp B/P (MAP) Pulse Ox O2 Delivery O2 Flow Rate FiO2 05/27/24 10:44 119/68 05/27/24 09:00 97.7 82 20 92 97.7 05/27/24 08:00 Room Air* 0 21 Intake/Output Intake and Output 05/27/24 07:00 Intake Total 3180 ml Balance 3180 ml Intake Oral 3180 ml # Voids 10 General Appearance: Alert, Oriented X3 Lungs: Clear to auscultation, Normal air movement Cardiovascular: Regular rate, Normal S1, Normal S2 Abdomen: Normal bowel sounds, Soft, No tenderness Extremities: Other (+edema bilaterally more on the right) Medications Current Medications Medications Dose Ordered Sig/Lyudmila Route Start Time Stop Time Status Last Admin Dose Admin Furosemide 20 mg BID IV 05/24/24 22:00 05/27/24 10:44 20 MG Ceftriaxone Sodium 50 ml @ 100 mls/hr DAILY IV 05/24/24 19:45 05/27/24 10:44 100 MLS/HR Lorazepam 0.5 mg Q6HP PRN PO 05/24/24 19:45 Al Hydrox/Mg Hydrox/Simethicone 30 ml Q6HP PRN PO 05/24/24 19:45 Acetaminophen 650 mg Q6HP PRN PO 05/24/24 19:45 Temazepam 15 mg QHSP PRN PO 05/24/24 19:45 Acetaminophen/ Hydrocodone Bitart 1 tab Q4HP PRN PO 05/24/24 19:45 05/27/24 11:22 1 TAB Ondansetron HCl 4 mg Q4HP PRN IV 05/24/24 19:45 05/26/24 22:45 4 MG Morphine Sulfate 2 mg Q4HPRN PRN IV 05/24/24 19:45 05/24/24 21:01 2 MG Vancomycin HCl 0 ml @ 0 mls/hr UD IV 05/24/24 20:00 Vancomycin HCl 200 ml @ 200 mls/hr Q12H IV 05/25/24 12:00 05/27/24 12:19 200 MLS/HR Ergocalciferol 50,000 unit Q7D PO 05/25/24 17:45 05/25/24 18:22 50,000 UNIT Enoxaparin Sodium 40 mg DAILY SC 05/26/24 10:00 05/27/24 10:45 40 MG Diagnostic Test (Pha) 1 strip ACHS 05/26/24 07:00 05/27/24 11:23 1 STRIP Insulin Human Regular ACHS SC 05/26/24 07:00 05/27/24 12:19 3 UNITS Dextrose 50 ml UD PRN IV 05/25/24 23:15 Docusate Sodium 100 mg BID PO 05/27/24 22:00 Laboratory Results Laboratory Tests 05/27/24 09:50 Chemistry Test 05/27/24 09:50 Calcium Level 9.0 mg/dL (8.7-10.4) Urinalysis Test 05/24/24 11:05 Urine Color Yellow (Yellow) Urine Clarity Turbid (Clear) H Urine pH 5.5 (5.0-9.0) Urine Specific [place] 1.025 (1.001-1.035) Urine Protein 2+ (Negative) H Urine Ketones Negative (Negative) Urine Blood Negative /uL (Negative) Urine Nitrite Negative (Negative) Urine Bilirubin Negative (Negative) Urine Urobilinogen Normal mg/dL (Negative) Urine Leukocyte Esterase Negative /uL (Negative) Urine RBC 3 /hpf (0 - 4) Urine WBC 6 /hpf (0 - 5) Urine Squamous Epithelial Cells Few /hpf (<5) Urine Bacteria Few /hpf (None Seen) H Urine Mucus Few (None Seen) Urine Glucose Normal mg/dL (Normal) Assessment/Plan Assessment/Plan Right lower extremity cellulitis Right lower extremity wounds with infection Type 2 diabetes Morbid obesity For lymphedema Constipation Plan Give lactulose 60 mL for constipation new Continue IV Rocephin and vancomycin Continue IV Lasix no wound care Replace potassium p.o. Monitor closely Plan discussed with: Patient My Orders Orders - MAKSIM ALVAREZ MD Procedure Category Date Status Time Wound Culture W/ Gs GRACE 05/27/24 In Process 10:35 Docusate Sodium PHA 05/27/24 In Process Capsule (Colace 22:00 Date of Service: May 27, 2024 Billing Provider: MAKSIM ALVAREZ MD Common Visit Codes: [id number] INP/OBS CARE(HIGH) MAKSIM ALVAREZ MD May 27, 2024 14:11
[2024-05-27] MEDS: POTASSIUM CHL 20 Meq TABLET PO ONE (15:47)
[2024-05-27] MEDS: DOCUSATE SOD 100 MG CAP PO SCH (22:36)
[2024-05-28] VITALS (7 sets, daily range): BP systolic 118–156; BP diastolic 48–81; PULSE 85–94; RESP 18–20; TEMP 97.6–98.4; O2SAT 90–97
[2024-05-28 06:31] LABS: Hematocrit 35.2 % (36.0-46.0); Mean Corpuscular Hemoglobin 30.2 pg (28.0-32.0); Mean Corpuscular Volume 88.9 fL (80.0-100.0); Platelet Count (auto) 259 10^3/uL (140-450); Red Blood Cells 3.96 10^6/uL (4.0-5.20); Red Cell Distribution Width 14.6 % (11.8-14.3); White Blood Cell 18.7 10^3/uL (4.4-10.8)
[2024-05-28 06:37] LABS: Basophils % (manual) 0 (0.0-2.0); Blast Cells 0; Myelocytes % 0; Promyelocytes % 0
[2024-05-28 06:50] LABS: Alanine Aminotransferase 28 U/L (7-40); Albumin 3.4 g/dL (3.2-4.8); Anion Gap 11 (5-15); Aspartate Aminotransferase 29 U/L (13-40); BUN/Creatinine Ratio 16.9 (10.0-20.0); Bilirubin, Total 0.3 mg/dL (0.2-1.0); Blood Urea Nitrogen 14 mg/dL (9-23); Calcium 9.2 mg/dL (8.7-10.4); Carbon Dioxide 24 mmol/L (20-31); Chloride 102 mmol/L (98-107); Magnesium 1.9 mg/dL (1.6-2.6); Sodium 137 mmol/L (136-145); Total Protein 6.2 g/dL (5.7-8.2)
[2024-05-28 06:52] LABS: Alkaline Phosphatase 119 U/L (46-116); Glucose 123 mg/dL (74-106); Potassium 3.4 mmol/L (3.5-5.1)
[2024-05-28 08:11] LABS: Band Neutrophils % (manual) 7; Eosinophils % (manual) 1 (0-7); Metamyelocytes % 1
[2024-05-28 08:12] LABS: Lymphocytes % (manual) 14 (10.0-50.0); Monocytes % (manual) 8 (0-12); Reactive Lymphocytes 4
[2024-05-28 08:14] LABS: Platelet Estimate Adequate; RBC Morphology Normal
[2024-05-28] MEDS: POTASSIUM CHL 20 Meq TABLET PO ONE (12:42)
--- NOTE | 2024-05-28 12:59 | DVHPN2 ---
Subjective No new complaints except her right leg is still draining serous fluid Her pain is better She states the edema is better Changes from previous H/P or p: Changes Eyes: No Pain, No Vision change, No Conjunctivae inflammation, No Eyelid inflammation, No Other, No Redness ENT: No Ear pain, No Ear discharge, No Nose pain, No Nose discharge, No Nose congestion, No Mouth pain, No Mouth swelling, No Throat pain, No Throat swelling, No Other Cardiovascular: No Chest Pain, No Palpitations, No Orthopnea, No Paroxysmal Noc. Dyspnea, No Edema, No Lt Headedness, No Other Respiratory: No Cough, No Dry, No Shortness of breath, No SOB with excertion, No Wheezing, No Hemoptysis, No Pleuritic Pain, No Sputum, No Other Gastrointestinal: No Nausea, No Vomiting, No Abdominal Pain, No Diarrhea, No Constipation, No Melena, No Hematochezia, No Other Genitourinary: No Dysuria, No Frequency, No Incontinence, No Hematuria, No Retention, No Other Musculoskeletal: No other, No neck pain, No shoulder pain, No back pain, No hand pain, No leg pain, No foot pain Skin: No Rash, No Lesions, No Jaundice, No Bruising, No Other Objective Vitals Vital Signs Date Time Temp Pulse Resp B/P (MAP) Pulse Ox O2 Delivery O2 Flow Rate FiO2 05/28/24 12:44 98.0 90 18 139/75 (96) 97 98.0 05/28/24 08:30 Room Air* 0 21 Intake/Output Intake and Output 05/28/24 06:59 Intake Total 2510 ml Output Total 10 ml Balance 2500 ml Intake Oral 2260 ml IV Total 250 ml Output Urine Total 10 ml # Voids 10 # Bowel Movements 3 General Appearance: Alert, Oriented X3 Lungs: Clear to auscultation, Normal air movement Cardiovascular: Regular rate, Normal S1, Normal S2 Abdomen: Normal bowel sounds, Soft, No tenderness Extremities: Other (+edema bilaterally more on the right) Medications Current Medications Medications Dose Ordered Sig/Lyudmila Route Start Time Stop Time Status Last Admin Dose Admin Furosemide 20 mg BID IV 05/24/24 22:00 05/28/24 10:35 20 MG Ceftriaxone Sodium 50 ml @ 100 mls/hr DAILY IV 05/24/24 19:45 05/28/24 10:34 100 MLS/HR Lorazepam 0.5 mg Q6HP PRN PO 05/24/24 19:45 Al Hydrox/Mg Hydrox/Simethicone 30 ml Q6HP PRN PO 05/24/24 19:45 Acetaminophen 650 mg Q6HP PRN PO 05/24/24 19:45 Temazepam 15 mg QHSP PRN PO 05/24/24 19:45 Acetaminophen/ Hydrocodone Bitart 1 tab Q4HP PRN PO 05/24/24 19:45 05/28/24 12:42 1 TAB Ondansetron HCl 4 mg Q4HP PRN IV 05/24/24 19:45 05/28/24 12:42 4 MG Morphine Sulfate 2 mg Q4HPRN PRN IV 05/24/24 19:45 05/24/24 21:01 2 MG Vancomycin HCl 0 ml @ 0 mls/hr UD IV 05/24/24 20:00 Vancomycin HCl 200 ml @ 200 mls/hr Q12H IV 05/25/24 12:00 05/28/24 12:41 200 MLS/HR Ergocalciferol 50,000 unit Q7D PO 05/25/24 17:45 05/25/24 18:22 50,000 UNIT Enoxaparin Sodium 40 mg DAILY SC 05/26/24 10:00 05/28/24 10:00 40 MG Diagnostic Test (Pha) 1 strip ACHS 05/26/24 07:00 05/28/24 11:36 1 STRIP Insulin Human Regular ACHS SC 05/26/24 07:00 05/28/24 12:36 2 UNITS Dextrose 50 ml UD PRN IV 05/25/24 23:15 Docusate Sodium 100 mg BID PO 05/27/24 22:00 05/28/24 11:05 100 MG Laboratory Results Laboratory Tests 05/28/24 06:16 Chemistry Test 05/28/24 06:16 Albumin 3.4 g/dL (3.2-4.8) Calcium Level 9.2 mg/dL (8.7-10.4) Magnesium Level 1.9 mg/dL (1.6-2.6) Total Protein 6.2 g/dL (5.7-8.2) LFT Test 05/28/24 06:16 Alanine Aminotransferase (ALT) 28 U/L (7-40) Alkaline Phosphatase 119 U/L (46-116) H Aspartate Amino Transferase (AST) 29 U/L (13-40) Total Bilirubin 0.3 mg/dL (0.2-1.0) Urinalysis Test 05/24/24 11:05 Urine Color Yellow (Yellow) Urine Clarity Turbid (Clear) H Urine pH 5.5 (5.0-9.0) Urine Specific [place] 1.025 (1.001-1.035) Urine Protein 2+ (Negative) H Urine Ketones Negative (Negative) Urine Blood Negative /uL (Negative) Urine Nitrite Negative (Negative) Urine Bilirubin Negative (Negative) Urine Urobilinogen Normal mg/dL (Negative) Urine Leukocyte Esterase Negative /uL (Negative) Urine RBC 3 /hpf (0 - 4) Urine WBC 6 /hpf (0 - 5) Urine Squamous Epithelial Cells Few /hpf (<5) Urine Bacteria Few /hpf (None Seen) H Urine Mucus Few (None Seen) Urine Glucose Normal mg/dL (Normal) Assessment/Plan Assessment/Plan Right lower extremity cellulitis Right lower extremity wounds with infection Type 2 diabetes Morbid obesity For lymphedema Constipation Plan Give lactulose 60 mL for constipation new Continue IV Rocephin and vancomycin Continue IV Lasix no wound care Replace potassium p.o. Monitor closely 05/28/2024: Continue the current management with IV antibiotics and wound care Replace potassium magnesium as needed Pain management as needed Monitor closely Discussed with the at the bedside Plan discussed with: Patient My Orders Orders - MAKSIM ALVAREZ MD Procedure Category Date Status Time Cleanse Wound With LESLEY 05/27/24 In Process Wound Clean 10:00 * Dietary Consult CONS 05/27/24 Transmitted 14:35 Date of Service: May 28, 2024 Billing Provider: MAKSIM ALVAREZ MD Common Visit Codes: [id number] INP/OBS CARE(HIGH) MAKSIM ALVAREZ MD May 28, 2024 12:59
[2024-05-29] VITALS (8 sets, daily range): BP systolic 115–155; BP diastolic 57–87; PULSE 88–102; RESP 19–20; TEMP 97.7–98.3; O2SAT 91–100
--- NOTE | 2024-05-29 11:58 | DVHPN2 ---
Eyes: No Pain, No Vision change, No Conjunctivae inflammation, No Eyelid inflammation, No Other, No Redness ENT: No Ear pain, No Ear discharge, No Nose pain, No Nose discharge, No Nose congestion, No Mouth pain, No Mouth swelling, No Throat pain, No Throat swelling, No Other Cardiovascular: No Chest Pain, No Palpitations, No Orthopnea, No Paroxysmal Noc. Dyspnea, No Edema, No Lt Headedness, No Other Respiratory: No Cough, No Dry, No Shortness of breath, No SOB with excertion, No Wheezing, No Hemoptysis, No Pleuritic Pain, No Sputum, No Other Gastrointestinal: No Nausea, No Vomiting, No Abdominal Pain, No Diarrhea, No Constipation, No Melena, No Hematochezia, No Other Genitourinary: No Dysuria, No Frequency, No Incontinence, No Hematuria, No Retention, No Other Musculoskeletal: No other, No neck pain, No shoulder pain, No back pain, No hand pain, No leg pain, No foot pain Skin: No Rash, No Lesions, No Jaundice, No Bruising, No Other Objective Vitals Vital Signs Date Time Temp Pulse Resp B/P (MAP) Pulse Ox O2 Delivery O2 Flow Rate FiO2 05/29/24 11:37 99 20 115/57 05/29/24 09:12 98.3 93 98.3 05/28/24 20:00 Room Air* 0 21 Intake/Output Intake and Output 05/29/24 07:00 Intake Total 2375 ml Balance 2375 ml Intake Oral 1925 ml IV Total 450 ml # Voids 14 General Appearance: Alert, Oriented X3 Lungs: Clear to auscultation, Normal air movement Cardiovascular: Regular rate, Normal S1, Normal S2 Abdomen: Normal bowel sounds, Soft, No tenderness Extremities: Other (+edema bilaterally more on the right) Medications Current Medications Medications Dose Ordered Sig/Lyudmila Route Start Time Stop Time Status Last Admin Dose Admin Furosemide 20 mg BID IV 05/24/24 22:00 05/29/24 10:37 20 MG Ceftriaxone Sodium 50 ml @ 100 mls/hr DAILY IV 05/24/24 19:45 05/29/24 10:35 100 MLS/HR Lorazepam 0.5 mg Q6HP PRN PO 05/24/24 19:45 Al Hydrox/Mg Hydrox/Simethicone 30 ml Q6HP PRN PO 05/24/24 19:45 Acetaminophen 650 mg Q6HP PRN PO 05/24/24 19:45 Temazepam 15 mg QHSP PRN PO 05/24/24 19:45 Acetaminophen/ Hydrocodone Bitart 1 tab Q4HP PRN PO 05/24/24 19:45 05/29/24 00:02 1 TAB Ondansetron HCl 4 mg Q4HP PRN IV 05/24/24 19:45 05/29/24 00:02 4 MG Morphine Sulfate 2 mg Q4HPRN PRN IV 05/24/24 19:45 05/29/24 11:37 2 MG Vancomycin HCl 0 ml @ 0 mls/hr UD IV 05/24/24 20:00 Vancomycin HCl 200 ml @ 200 mls/hr Q12H IV 05/25/24 12:00 05/28/24 23:47 200 MLS/HR Ergocalciferol 50,000 unit Q7D PO 05/25/24 17:45 05/25/24 18:22 50,000 UNIT Enoxaparin Sodium 40 mg DAILY SC 05/26/24 10:00 05/29/24 10:38 40 MG Diagnostic Test (Pha) 1 strip ACHS 05/26/24 07:00 05/29/24 11:37 1 STRIP Insulin Human Regular ACHS SC 05/26/24 07:00 05/29/24 11:39 3 UNITS Dextrose 50 ml UD PRN IV 05/25/24 23:15 Docusate Sodium 100 mg BID PO 05/27/24 22:00 05/29/24 10:35 100 MG Laboratory Results Laboratory Tests 05/28/24 06:16 05/29/24 06:24 Urinalysis Test 05/24/24 11:05 Urine Color Yellow (Yellow) Urine Clarity Turbid (Clear) H Urine pH 5.5 (5.0-9.0) Urine Specific [place] 1.025 (1.001-1.035) Urine Protein 2+ (Negative) H Urine Ketones Negative (Negative) Urine Blood Negative /uL (Negative) Urine Nitrite Negative (Negative) Urine Bilirubin Negative (Negative) Urine Urobilinogen Normal mg/dL (Negative) Urine Leukocyte Esterase Negative /uL (Negative) Urine RBC 3 /hpf (0 - 4) Urine WBC 6 /hpf (0 - 5) Urine Squamous Epithelial Cells Few /hpf (<5) Urine Bacteria Few /hpf (None Seen) H Urine Mucus Few (None Seen) Urine Glucose Normal mg/dL (Normal) Microbiology Microbiology Date/Time Source Procedure Growth Status 05/27/24 10:40 Leg Right Gram Stain - Final Resulted 05/27/24 10:40 Leg Right Wound Culture - Preliminary Resulted DAVID COPPOLA MD May 29, 2024 11:58
[2024-05-30] VITALS (7 sets, daily range): BP systolic 124–165; BP diastolic 63–91; PULSE 71–99; RESP 18–23; TEMP 97.7–98.7; O2SAT 91–96
--- NOTE | 2024-05-30 13:47 | DVHPN2 ---
Eyes: No Pain, No Vision change, No Conjunctivae inflammation, No Eyelid inflammation, No Other, No Redness ENT: No Ear pain, No Ear discharge, No Nose pain, No Nose discharge, No Nose congestion, No Mouth pain, No Mouth swelling, No Throat pain, No Throat swelling, No Other Cardiovascular: No Chest Pain, No Palpitations, No Orthopnea, No Paroxysmal Noc. Dyspnea, No Edema, No Lt Headedness, No Other Respiratory: No Cough, No Dry, No Shortness of breath, No SOB with excertion, No Wheezing, No Hemoptysis, No Pleuritic Pain, No Sputum, No Other Gastrointestinal: No Nausea, No Vomiting, No Abdominal Pain, No Diarrhea, No Constipation, No Melena, No Hematochezia, No Other Genitourinary: No Dysuria, No Frequency, No Incontinence, No Hematuria, No Retention, No Other Musculoskeletal: No other, No neck pain, No shoulder pain, No back pain, No hand pain, No leg pain, No foot pain Skin: No Rash, No Lesions, No Jaundice, No Bruising, No Other Objective Vitals Vital Signs Date Time Temp Pulse Resp B/P (MAP) Pulse Ox O2 Delivery O2 Flow Rate FiO2 05/30/24 10:55 83 18 142/83 05/30/24 09:00 98.7 92 98.7 05/29/24 20:30 Room Air* 0 21 Intake/Output Intake and Output 05/30/24 07:00 Intake Total 2765 ml Balance 2765 ml Intake Oral 2315 ml IV Total 450 ml # Voids 11 General Appearance: Alert, Oriented X3 Lungs: Clear to auscultation, Normal air movement Cardiovascular: Regular rate, Normal S1, Normal S2 Abdomen: Normal bowel sounds, Soft, No tenderness Extremities: Other (+edema bilaterally more on the right) Medications Current Medications Medications Dose Ordered Sig/Lyudmila Route Start Time Stop Time Status Last Admin Dose Admin Furosemide 20 mg BID IV 05/24/24 22:00 05/29/24 10:37 20 MG Ceftriaxone Sodium 50 ml @ 100 mls/hr DAILY IV 05/24/24 19:45 05/30/24 10:07 100 MLS/HR Lorazepam 0.5 mg Q6HP PRN PO 05/24/24 19:45 Al Hydrox/Mg Hydrox/Simethicone 30 ml Q6HP PRN PO 05/24/24 19:45 Acetaminophen 650 mg Q6HP PRN PO 05/24/24 19:45 Temazepam 15 mg QHSP PRN PO 05/24/24 19:45 Acetaminophen/ Hydrocodone Bitart 1 tab Q4HP PRN PO 05/24/24 19:45 05/29/24 22:37 1 TAB Ondansetron HCl 4 mg Q4HP PRN IV 05/24/24 19:45 05/29/24 22:35 4 MG Morphine Sulfate 2 mg Q4HPRN PRN IV 05/24/24 19:45 05/30/24 10:55 2 MG Vancomycin HCl 0 ml @ 0 mls/hr UD IV 05/24/24 20:00 Vancomycin HCl 200 ml @ 200 mls/hr Q12H IV 05/25/24 12:00 05/30/24 11:35 200 MLS/HR Ergocalciferol 50,000 unit Q7D PO 05/25/24 17:45 05/25/24 18:22 50,000 UNIT Enoxaparin Sodium 40 mg DAILY SC 05/26/24 10:00 05/30/24 10:08 40 MG Diagnostic Test (Pha) 1 strip ACHS 05/26/24 07:00 05/30/24 11:36 1 STRIP Insulin Human Regular ACHS SC 05/26/24 07:00 05/30/24 11:37 3 UNITS Dextrose 50 ml UD PRN IV 05/25/24 23:15 Docusate Sodium 100 mg BID PO 05/27/24 22:00 05/30/24 10:07 100 MG Laboratory Results Laboratory Tests 05/28/24 06:16 05/29/24 06:24 Urinalysis Test 05/24/24 11:05 Urine Color Yellow (Yellow) Urine Clarity Turbid (Clear) H Urine pH 5.5 (5.0-9.0) Urine Specific [place] 1.025 (1.001-1.035) Urine Protein 2+ (Negative) H Urine Ketones Negative (Negative) Urine Blood Negative /uL (Negative) Urine Nitrite Negative (Negative) Urine Bilirubin Negative (Negative) Urine Urobilinogen Normal mg/dL (Negative) Urine Leukocyte Esterase Negative /uL (Negative) Urine RBC 3 /hpf (0 - 4) Urine WBC 6 /hpf (0 - 5) Urine Squamous Epithelial Cells Few /hpf (<5) Urine Bacteria Few /hpf (None Seen) H Urine Mucus Few (None Seen) Urine Glucose Normal mg/dL (Normal) Microbiology Microbiology Date/Time Source Procedure Growth Status 05/27/24 10:40 Leg Right Gram Stain - Final Resulted 05/27/24 10:40 Leg Right Wound Culture - Preliminary Resulted Assessment/Plan My Orders Orders - DAVID COPPOLA MD Procedure Category Date Status Time Dietary NOTICE 05/29/24 Transmitted Recommendations 15:46 Complete Blood Count LAB 05/30/24 Logged 13:10 Comprehensive LAB 05/30/24 Logged Metabolic Panel 13:10 DAVID COPPOLA MD May 30, 2024 13:47
[2024-05-30 14:22] LABS: Hematocrit 36.8 % (36.0-46.0); Hemoglobin 12.4 g/dL (12.2-16.2); Mean Corpuscular Hemoglobin 30.1 pg (28.0-32.0); Mean Corpuscular Hgb Conc. 33.7 g/dL (32.0-36.0); Mean Corpuscular Volume 89.1 fL (80.0-100.0); Platelet Count (auto) 363 10^3/uL (140-450); Red Blood Cells 4.13 10^6/uL (4.0-5.20); Red Cell Distribution Width 14.9 % (11.8-14.3); White Blood Cell 16.4 10^3/uL (4.4-10.8)
[2024-05-30 14:31] LABS: Basophils % (manual) 0 (0.0-2.0); Blast Cells 0; Promyelocytes % 0; Reactive Lymphocytes 0
[2024-05-30 14:35] LABS: Alanine Aminotransferase 40 U/L (7-40); Albumin 3.4 g/dL (3.2-4.8); Alkaline Phosphatase 107 U/L (46-116); Anion Gap 9 (5-15); Aspartate Aminotransferase 38 U/L (13-40); BUN/Creatinine Ratio 11.5 (10.0-20.0); Blood Urea Nitrogen 10 mg/dL (9-23); Calcium 9.4 mg/dL (8.7-10.4); Carbon Dioxide 28 mmol/L (20-31); Chloride 101 mmol/L (98-107); Potassium 3.8 mmol/L (3.5-5.1); Sodium 138 mmol/L (136-145); Total Protein 7.2 g/dL (5.7-8.2)
[2024-05-30 14:40] LABS: Bilirubin, Total 0.2 mg/dL (0.2-1.0); Glucose 134 mg/dL (74-106)
[2024-05-30 14:51] LABS: Band Neutrophils % (manual) 8; Eosinophils % (manual) 1 (0-7); Lymphocytes % (manual) 15 (10.0-50.0); Metamyelocytes % 1; Monocytes % (manual) 4 (0-12); Myelocytes % 3
[2024-05-30 14:53] LABS: Anisocytosis Slight; Platelet Estimate Adequate
[2024-05-30] MEDS: POTASSIUM CHL 20 Meq TABLET PO ONE (17:53)
[2024-05-31] VITALS (8 sets, daily range): BP systolic 122–147; BP diastolic 49–83; PULSE 77–99; RESP 17–20; TEMP 97.4–97.8; O2SAT 94–100
[2024-05-31] MEDS: LACTULOSE 20Gm/30ML SOLN PO PRN (06:45)
[2024-05-31 06:53] LABS: Basophils # (auto) 0.1 10 ^3/uL (0-0.2); Basophils % (auto) 0.7 % (0.0-2.0); Eosinophils # (auto) 0.2 10 ^3/uL (0-0.8); Eosinophils % (auto) 1.2 % (0.0-7.0); Hematocrit 35.1 % (36.0-46.0); Hemoglobin 11.3 g/dL (12.2-16.2); Lymphocytes # (auto) 1.7 10 ^3/uL (0.4-5.4); Lymphocytes % (auto) 12.5 % (10.0-50.0); Mean Corpuscular Hemoglobin 29.2 pg (28.0-32.0); Mean Corpuscular Hgb Conc. 32.3 g/dL (32.0-36.0); Mean Corpuscular Volume 90.5 fL (80.0-100.0); Monocytes # (auto) 1.3 10 ^3/uL (0-1.3); Monocytes % (auto) 9.4 % (0.0-12.0); Neutrophils # (auto) 10.4 10 ^3/uL (1.6-8.6); Neutrophils % (auto) 76.2 % (37.0-80.0); Nucleated Red Blood Cells % 0.1 %; Platelet Count (auto) 334 10^3/uL (140-450); Red Blood Cells 3.88 10^6/uL (4.0-5.20); Red Cell Distribution Width 14.9 % (11.8-14.3); White Blood Cell 13.7 10^3/uL (4.4-10.8)
--- NOTE | 2024-05-31 08:23 | DVHPN2 ---
Eyes: No Pain, No Vision change, No Conjunctivae inflammation, No Eyelid inflammation, No Other, No Redness ENT: No Ear pain, No Ear discharge, No Nose pain, No Nose discharge, No Nose congestion, No Mouth pain, No Mouth swelling, No Throat pain, No Throat swelling, No Other Cardiovascular: No Chest Pain, No Palpitations, No Orthopnea, No Paroxysmal Noc. Dyspnea, No Edema, No Lt Headedness, No Other Respiratory: No Cough, No Dry, No Shortness of breath, No SOB with excertion, No Wheezing, No Hemoptysis, No Pleuritic Pain, No Sputum, No Other Gastrointestinal: No Nausea, No Vomiting, No Abdominal Pain, No Diarrhea, No Constipation, No Melena, No Hematochezia, No Other Genitourinary: No Dysuria, No Frequency, No Incontinence, No Hematuria, No Retention, No Other Musculoskeletal: No other, No neck pain, No shoulder pain, No back pain, No hand pain, No leg pain, No foot pain Skin: No Rash, No Lesions, No Jaundice, No Bruising, No Other Objective Vitals Vital Signs Date Time Temp Pulse Resp B/P (MAP) Pulse Ox O2 Delivery O2 Flow Rate FiO2 05/31/24 05:00 97.4 86 17 144/83 (103) 98 97.4 05/30/24 20:00 Room Air* 0 21 Intake/Output Intake and Output 05/31/24 07:00 Intake Total 2850 ml Balance 2850 ml Intake Oral 2400 ml IV Total 450 ml # Voids 17 General Appearance: Alert, Oriented X3 Lungs: Clear to auscultation, Normal air movement Cardiovascular: Regular rate, Normal S1, Normal S2 Abdomen: Normal bowel sounds, Soft, No tenderness Extremities: Other (+edema bilaterally more on the right) Medications Current Medications Medications Dose Ordered Sig/Lyudmila Route Start Time Stop Time Status Last Admin Dose Admin Furosemide 20 mg BID IV 05/24/24 22:00 05/30/24 23:15 20 MG Ceftriaxone Sodium 50 ml @ 100 mls/hr DAILY IV 05/24/24 19:45 05/30/24 10:07 100 MLS/HR Lorazepam 0.5 mg Q6HP PRN PO 05/24/24 19:45 Al Hydrox/Mg Hydrox/Simethicone 30 ml Q6HP PRN PO 05/24/24 19:45 Acetaminophen 650 mg Q6HP PRN PO 05/24/24 19:45 Temazepam 15 mg QHSP PRN PO 05/24/24 19:45 Acetaminophen/ Hydrocodone Bitart 1 tab Q4HP PRN PO 05/24/24 19:45 05/31/24 01:46 1 TAB Ondansetron HCl 4 mg Q4HP PRN IV 05/24/24 19:45 05/29/24 22:35 4 MG Morphine Sulfate 2 mg Q4HPRN PRN IV 05/24/24 19:45 05/30/24 23:16 2 MG Vancomycin HCl 0 ml @ 0 mls/hr UD IV 05/24/24 20:00 Vancomycin HCl 200 ml @ 200 mls/hr Q12H IV 05/25/24 12:00 05/30/24 23:56 200 MLS/HR Ergocalciferol 50,000 unit Q7D PO 05/25/24 17:45 05/25/24 18:22 50,000 UNIT Enoxaparin Sodium 40 mg DAILY SC 05/26/24 10:00 05/30/24 10:08 40 MG Diagnostic Test (Pha) 1 strip ACHS 05/26/24 07:00 05/31/24 06:45 1 STRIP Insulin Human Regular ACHS SC 05/26/24 07:00 05/30/24 23:17 3 UNITS Dextrose 50 ml UD PRN IV 05/25/24 23:15 Docusate Sodium 100 mg BID PO 05/27/24 22:00 05/30/24 22:43 100 MG Lactulose 30 ml BIDPRN PRN PO 05/31/24 00:15 05/31/24 06:45 30 ML Laboratory Results Laboratory Tests 05/30/24 13:45 05/31/24 06:21 Chemistry Test 05/30/24 13:45 Albumin 3.4 g/dL (3.2-4.8) Calcium Level 9.4 mg/dL (8.7-10.4) Total Protein 7.2 g/dL (5.7-8.2) LFT Test 05/30/24 13:45 Alanine Aminotransferase (ALT) 40 U/L (7-40) Alkaline Phosphatase 107 U/L (46-116) Aspartate Amino Transferase (AST) 38 U/L (13-40) Total Bilirubin 0.2 mg/dL (0.2-1.0) Urinalysis Test 05/24/24 11:05 Urine Color Yellow (Yellow) Urine Clarity Turbid (Clear) H Urine pH 5.5 (5.0-9.0) Urine Specific [place] 1.025 (1.001-1.035) Urine Protein 2+ (Negative) H Urine Ketones Negative (Negative) Urine Blood Negative /uL (Negative) Urine Nitrite Negative (Negative) Urine Bilirubin Negative (Negative) Urine Urobilinogen Normal mg/dL (Negative) Urine Leukocyte Esterase Negative /uL (Negative) Urine RBC 3 /hpf (0 - 4) Urine WBC 6 /hpf (0 - 5) Urine Squamous Epithelial Cells Few /hpf (<5) Urine Bacteria Few /hpf (None Seen) H Urine Mucus Few (None Seen) Urine Glucose Normal mg/dL (Normal) Microbiology Microbiology Date/Time Source Procedure Growth Status 05/27/24 10:40 Leg Right Gram Stain - Final Resulted 05/27/24 10:40 Leg Right Wound Culture - Preliminary Resulted DAVID COPPOLA MD May 31, 2024 08:23
[2024-05-31] MEDS: VANCOMYCIN 1GM/200ML PREMIX 200 ML IV SCH (14:03)
[2024-06-01 01:00] VITALS: BP 146/81; PULSE 95; RESP 20; TEMP 97.8; O2SAT 97
[2024-06-01 05:00] VITALS: BP 147/76; PULSE 95; RESP 20; TEMP 97.3; O2SAT 99
[2024-06-01 08:00] VITALS: PULSE 87; RESP 20; O2SAT 93
[2024-06-01 09:00] VITALS: BP 152/87; PULSE 97; RESP 20; TEMP 98.3; O2SAT 97
[2024-06-01 13:00] VITALS: BP 137/69; PULSE 84; RESP 20; TEMP 98.2; O2SAT 93
[2024-06-01] MEDS ORDERED: CLIN-203 PO (14:01)
[2024-06-01] MEDS ORDERED: SACC1CAP3 PO (14:01)
[2024-06-01] MEDS ORDERED: ERGO1CAP23 PO (14:01)
[2024-06-01] MEDS ORDERED: FURO1TAB33 PO (14:01)
[2024-06-01] MEDS ORDERED: POTA-36 PO (14:01)
--- NOTE | 2024-06-01 14:03 | DVHDS2 ---
Discharge Summary Date of Admission May 24, 2024 at 19:33 Date of Discharge: Jun 01, 2024 Labs/Diagnostic Data: Laboratory Results Test 06/01/24 10:22 05/31/24 11:00 05/31/24 06:21 05/30/24 13:45 POC Glucose 212 mg/dl (70-106) Vancomycin Level Trough 18.7 ug/mL (5-10) White Blood Count 13.7 10^3/uL (4.4-10.8) Red Blood Count 3.88 10^6/uL (4.0-5.20) Hemoglobin 11.3 g/dL (12.2-16.2) Hematocrit 35.1 % (36.0-46.0) Mean Corpuscular Volume 90.5 fL (80.0-100.0) Mean Corpuscular Hemoglobin 29.2 pg (28.0-32.0) Mean Corpuscular Hemoglobin Concent 32.3 g/dL (32.0-36.0) Red Cell Distribution Width 14.9 % (11.8-14.3) Platelet Count 334 10^3/uL (140-450) Mean Platelet Volume 8.2 fL (6.9-10.8) Neutrophils (%) (Auto) 76.2 % (37.0-80.0) Lymphocytes (%) (Auto) 12.5 % (10.0-50.0) Monocytes (%) (Auto) 9.4 % (0.0-12.0) Eosinophils (%) (Auto) 1.2 % (0.0-7.0) Basophils (%) (Auto) 0.7 % (0.0-2.0) Neutrophils # (Auto) 10.4 10 ^3/uL (1.6-8.6) Lymphocytes # (Auto) 1.7 10 ^3/uL (0.4-5.4) Monocytes # (Auto) 1.3 10 ^3/uL (0-1.3) Eosinophils # (Auto) 0.2 10 ^3/uL (0-0.8) Basophils # (Auto) 0.1 10 ^3/uL (0-0.2) Nucleated Red Blood Cells 0.1 % Creatinine 0.84 mg/dL (0.550-1.02) Glomerular Filtration Rate Calc 81 mL/min (>90) Differential Total Cells Counted 100.0 (100) Neutrophils % (Manual) 68 (37.0-80.0) Band Neutrophils % (Manual) 8 Lymphocytes % (Manual) 15 (10.0-50.0) Monocytes % (Manual) 4 (0-12) Eosinophils % (Manual) 1 (0-7) Basophils % (Manual) 0 (0.0-2.0) Metamyelocytes % (manual) 1 Myelocytes % (Manual) 3 Promyelocytes % (Manual) 0 Blast Cells % (Manual) 0 Reactive Lymphocytes 0 Platelet Estimate Adequate Anisocytosis (manual) Slight Sodium Level 138 mmol/L (136-145) Potassium Level 3.8 mmol/L (3.5-5.1) Chloride Level 101 mmol/L (98-107) Carbon Dioxide Level 28 mmol/L (20-31) Anion Gap 9 (5-15) Blood Urea Nitrogen 10 mg/dL (9-23) BUN/Creatinine Ratio 11.5 (10.0-20.0) Serum Glucose 134 mg/dL (74-106) Calcium Level 9.4 mg/dL (8.7-10.4) Total Bilirubin 0.2 mg/dL (0.2-1.0) Aspartate Amino Transferase (AST) 38 U/L (13-40) Alanine Aminotransferase (ALT) 40 U/L (7-40) Alkaline Phosphatase 107 U/L (46-116) Total Protein 7.2 g/dL (5.7-8.2) Albumin 3.4 g/dL (3.2-4.8) Test 05/28/24 06:16 05/25/24 04:05 05/24/24 14:00 05/24/24 11:53 Red Blood Cell Morphology Normal Magnesium Level 1.9 mg/dL (1.6-2.6) Hepatitis B Surface Antigen Negative (Negative) Hepatitis C Antibody Negative (Negative) Lactic Acid Level 1.5 mmol/L (0.4-2.0) B-Type Natriuretic Peptide 25.87 pg/mL (0-100) Test 05/24/24 11:05 Urine Color Yellow (Yellow) Urine Clarity Turbid (Clear) Urine pH 5.5 (5.0-9.0) Urine Specific [place] 1.025 (1.001-1.035) Urine Protein 2+ (Negative) Urine Ketones Negative (Negative) Urine Blood Negative /uL (Negative) Urine Nitrite Negative (Negative) Urine Bilirubin Negative (Negative) Urine Urobilinogen Normal mg/dL (Negative) Urine Leukocyte Esterase Negative /uL (Negative) Urine RBC 3 /hpf (0 - 4) Urine WBC 6 /hpf (0 - 5) Urine Squamous Epithelial Cells Few /hpf (<5) Urine Bacteria Few /hpf (None Seen) Urine Mucus Few (None Seen) Urine Glucose Normal mg/dL (Normal) Other Laboratory Tests 05/31/24 06:21 05/30/24 13:45 Brief Hx & Hospital Course: 58 yo with a stated history of stated lymphemeda but denies history of CHF or hypertension comes for complaints of leg pain and swelling and the inability to control the swelling in the legs came to the ed and was recommended for admission for further evaluation. Patient was seen in Vascular surgery consult, was also treated with Lasix, Vancomycin, and Rocephin. Swelling has improved, patient will be discharged home with Clindamycin and needs to see Podiatry clinic on Jun 04. for wound care. Condition at Discharge: Poor Final Diagnosis/Problems List lymphedema lateral leg blister. 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 Hernandez on at 1:45PM Medications: see [facility] [place] Discharge Statement: "Patient was advised to return to the ER or call 911 if any headaches, dizziness, shortness of breath, chest pain, abdominal pain, bleeding, fevers, or worsening of medical condition. Patient was counseled about treatment plan, medications, possible side effects, patientverbalized understanding. All questions were answered to the best of my ability. This discharge took greater then 30 minutes in planning, reviewing documentation, counseling the patient, and discussing with other team members." ASSESSMENT ASSESSMENT Assessment Date of Service: Jun 01, 2024 Billing Provider: NADINE KING MD Common Visit Codes: 33811-DGL/OBS DISCH DAY >30min NADINE KING MD Jun 01, 2024 14:03
[2024-06-01 14:18] VITALS: BP 137/69; PULSE 87; RESP 20; TEMP 97.8; O2SAT 93
== END 2024-06-01 16:24 | disposition home or self-care (01) | DRG 872 ==
LOC: ER 10:56 → OVERFLOW 19:33 → EAST 05-25 16:55
PROVIDERS: ADMIT Hospitalist; ATTEND Internal Medicine
PROC: 05H933Z Insertion of Infusion Device into Right Brachial Vein, Percutaneous Approach (ICD-10-PCS; principal; 2024-05-31)
PROC: B54MZZA Ultrasonography of Right Upper Extremity Veins, Guidance (ICD-10-PCS; 2024-05-31)
DX: A41.9 Sepsis, unspecified organism (principal); L03.115 Cellulitis of right lower limb; Z68.43 Body mass index [BMI] 50.0-59.9, adult; I89.0 Lymphedema, not elsewhere classified; E66.01 Morbid (severe) obesity due to excess calories; S80.821A Blister (nonthermal), right lower leg, initial encounter; E11.9 Type 2 diabetes mellitus without complications; K59.00 Constipation, unspecified; Z88.1 Allergy status to other antibiotic agents; Z79.4 Long term (current) use of insulin; Z88.0 Allergy status to penicillin; Z83.3 Family history of diabetes mellitus; X58.XXXA Exposure to other specified factors, initial encounter; Y93.89 Activity, other specified; Y92.89 Other specified places as the place of occurrence of the external cause; Y99.8 Other external cause status; M54.42 Lumbago with sciatica, left side; M54.41 Lumbago with sciatica, right side
CPT/HCPCS: 36415; 71045; 80048; 80053; 80202; 81001; 82565; 82962; 83605; 83735; 83880; 85007; 85025; 85027; 86803; 87205; 87340; 93005; 93925; 93970; G0378; J1815; J2405

== ENCOUNTER 2025-02-06 09:33 | Emergency (ER) | payer OTHER ==
[~2025-02-06] VITALS: Ht 165.1 cm; Wt 136.0 kg
[~2025-02-06 09:33] MED LIST changes: +CLIN-203 PO; +ERGO1CAP23 PO; +FURO1TAB33 PO; +POTA-36 PO; +SACC1CAP3 PO
--- NOTE | 2025-02-06 10:04 | ED.PDOC ---
Musculoskeletal HPI Comments 59 year old female presents to the ED with a chief complaint of RT leg wound onset 1 day. Patient was treated at [facility] in May 2024 for bilateral lymphedema. Patient states her dog scratched RT leg, was bleeding, was able to control bleeding. Patient woke up this morning and noticed clear liquid draining from wound, concerned due to lymphedema. Is currently on a diuretic. PMHx CHF, HTN, DM. Denies chest pain, dizziness, numbness/tingling, fever, chills. NO other symptoms or modifying factors present at this time. Chief Complaint: Lower Extremity Time Seen by MD: 09:55 Primary Care Provider: OSCAR Davis Notes: Medications, Allergies Allergies: Coded Allergies: Amoxicillin (Verified Allergy, Unknown, 02/06/25) Doxycycline (Verified Allergy, Unknown, 02/06/25) Uncoded Allergies: FLU SHOT (Allergy, Unknown, 05/24/24) Home Meds Active Scripts Levofloxacin Hemihydrate (LEVOFLOXACIN) 500 Mg Tab, 1 TAB PO DAILY for 7 Days, #7 TAB Prov:ERIK GUAMAN MD 02/06/25 Furosemide (Lasix) 20 Mg Tb, 1 TAB PO DAILY for 20 Days, #20 TAB 1 Refill Prov:ERIK GUAMAN MD 02/06/25 Potassium Chloride (POTASSIUM CHLORIDE CR) 10 Meq Tb, 1 TAB PO DAILY, #30 TAB 0 Refills Prov:NADINE KING MD 06/01/24 Furosemide (Lasix) 20 Mg Tb, 1 TAB PO DAILY, #30 TAB 0 Refills Prov:NADINE KING MD 06/01/24 Ergocalciferol (VITAMIN D 59300 UNIT) 50,000 [place], [address] UNIT PO Q7D for 10 Days, #10 CAP Prov:NADINE KING MD 06/01/24 Yeast (S. Boulardii)(S. Cerevi (Probiotic) 250 Mg Cap, 250 MG PO QAM for 30 Days, #30 CAP Prov:NADINE KING MD 06/01/24 Clindamycin HCl (Clindamycin Hydrochloride) 300 Mg Cap, 300 MG PO Q8HR for 10 Days, #30 CAP Prov:NADINE KING MD 06/01/24 Lactulose (Lactulose) 10 Gm/15 Ml Johana, 10 GM PO Q8HP PRN, #200 ML Prov:CORRIE VICENTE PAC 04/12/24 Information Source: Patient Mode of Arrival: Ambulatory Location: Right Extremity Location: Leg Timing: Days Prehospital treatment: None Severity: Moderate Able to Move Extremity: Yes Bear Weight: Limited Pain: Moderate Mechanism: Other (dog scratch) Circumstances: Other Onset of Symptoms: After Trauma Symptoms: Swelling, Pain DVT Risk Factors: CHF Associated signs and symptoms: Leg pain Past Medical History PAST MEDICAL HISTORY: CHF, DM, HTN Surgical History: Denies all surgeries 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 Family History Family History: Reviewed,noncontributory to illness, No family hx of Cancer, No family hx of DM, No family hx of Heart zachery, No family hx of HTN, No family hx ofKidney zachery, No family hx of Liver zachery, No family hx of Lung zachery, No family hx of Stroke Social History Smoker: Non-Smoker Alcohol: Denies ETOH Use Drugs: Denies Drug Use Lives In: Home Constitutional: denies: chills, diaphoresis, fatigue, fever, malaise, sweats, weakness, others EENTM: denies: blurred vision, double vision, ear bleeding, ear discharge, ear drainage, ear pain, ear ringing, eye pain, eye redness, hearing loss, mouth pain, mouth swelling, nasal discharge, nose bleeding, nose congestion, nose pain, photophobia, tearing, throat pain, throat swelling, voice changes, others Respiratory: denies: cough, hemoptysis, orthopnea, SOB at rest, shortness of breath, SOB with excertion, stridor, wheezing, others Cardiovascular: denies: chest pain, dizzy spells, diaphoresis, Dyspnea on exertion, edema, irregular heart beat, left arm pain, lightheadedness, palpitations, PND, syncope, others Gastrointestinal: denies: abdomen distended, abdominal pain, blood streaked bowels, constipated, diarrhea, dysphagia, difficulty swallowing, hematemesis, melena, nausea, poor appetite, poor fluid intake, rectal bleeding, rectal pain, vomiting, others Genitourinary: denies: abnormal vagina bleeding, burning, dyspareunia, dysuria, flank pain, frequency, hematuria, incontinence, pain, , vagina discharge , urgency, others Neurological: denies: dizziness, fainting, headache, left sided numbness, left sided weakness, numbness, paresthesia, pre-existing deficit, right sided numbness, right sided weakness, seizure, speech problems, tingling, tremors, weakness, others Musculoskeletal: reports: others (RT leg swelling); denies: back pain, gout, joint pain, joint swelling, muscle pain, muscle stiffness, neck pain Integumetry: reports: laceration (RT leg); denies: bruises, change in color, change in hair/nails, dryness, lesions, lumps, rash, wounds, others Allergic/Immunocompromised: denies: Difficulty Healing, Frequent Infections, Hives, Itching, others Hematologic/Lymphatic: denies: anemia, blood clots, easy bleeding, easy bruising, swollen glands, others Endocrine: denies: excessive hunger, excessive sweating, excessive thirst, excessive urination, flushing, intolerance to cold, intolerance to heat, unexplained weight gain, unexplained weight loss, others Psychiatric: denies: anxiety, bipolar disorder, depression, hopeless, panic disorder, schizophrenia, sleepless, suicidal, others All Other Systems: Reviewed and Negative Physical Exam General Appearance: Moderate Distress, Obese HEENT: Normal ENT Inspection, Pharynx Normal, TMs Normal Neck: Full Range of Motion, Non-Tender, Normal, Normal Inspection Respiratory: Chest Non-Tender, Lungs Clear, No Accessory Muscle Use, No Respiratory Distress, Normal Breath Sounds Cardiovascular: No Edema, No JVD, No Murmur, No Gallop, Normal Peripheral Pulses, Regular Rate/Rhythm Breast Exam: Deferred Gastrointestinal: No Organomegaly, Non Tender, No Pulsatile Mass, Normal Bowel Sounds, Soft Genitalia: Deferred Pelvic: Deferred Rectal: Deferred Extremities: No calf tenderness, Normal capillary refill, Normal inspection, Normal range of motion, Non-tender, No pedal edema Musculoskeletal : Apperance: Normal Neurologic: Alert, lifeguard II-XII nml as Tested, No Motor Deficits, Normal Affect, Normal Mood, No Sensory Deficits Cerebellar Function: Normal Reflexes: Normal Skin: Bruises (Right lower extremity), Dry, Normal Color, Warm Peripheral Pulses: 3+ Radial (R), 3+ Radial (L) Lymphatic: No Adenopathy Was a procedure done? Was a procedure done?: Yes Sedation Sedation?: No Laceration Repair : Location RT leg Length 3 cm Anesthetic: Nothing Laceration Repair Prep: Saline, Betadine, Shur-Clens, by Irrigation, Manual Scrub Laceration Repair Wound Comple: epidermis/dermis repair Laceration Repair: Dermabond Informed consent obtained: Yes Risks, benefits, and alternati: Yes Differential Diagnosis EXT Differential Diagnosis: Sprain, Strain X-Ray, Labs, Meds, VS Vital Signs Date Time Temp Pulse Resp B/P (MAP) Pulse Ox O2 Delivery O2 Flow Rate FiO2 02/06/25 10:27 81 16 94 Room Air 02/06/25 10:27 98.2 81 16 144/75 (98) 94 98.2 02/06/25 09:35 98.0 96 20 154/79 96 98.0 Patient alert. Has a scratch over right lower extremity pain Vitals stable. Answering questions. Was given prescription of Lasix Levaquin antibiotic. She ran out of her Lasix for which she was given prescription. No acute process. Saturation pristine on room air. Heart rate within normal limits. Respiratory rate within normal limits. Placed Dermabond over the bruise. Explained to the patient. Was told to follow up with his primary care physician. Was told to come back if there is any problem. Time of 1ST Reevaluation: 10:25 Reevaluation 1ST: Improved Patient Education/Counseling: Diagnosis, Treatment, Prognosis Family Education/Counseling: No Family Present Departure 1 Departure Time of Disposition: 10:14 Impression: Primary Impression: Lymphedema Additional Impression: Abrasion Disposition: 01 HOME / SELF CARE / HOMELESS Condition: Good e-Prescriptions Levofloxacin Hemihydrate (LEVOFLOXACIN) 500 Mg Tab 1 TAB PO DAILY for 7 Days, #7 TAB Prov: ERIK GUAMAN MD 02/06/25 Furosemide (Lasix) 20 Mg Tb 1 TAB PO DAILY for 20 Days, #20 TAB 1 Refill Prov: ERIK GUAMAN MD 02/06/25 Discharged With: Self Critical Care Note Critical Care Time?: No Stability Stability form required: No Heart Score Heart Score: Heart Score Response (Comments) Value History N/A 0 EKG N/A 0 Age N/A 0 Risk Factors N/A 0 Troponin N/A 0 Total 0 I personally scribed for ERIK GUAMAN MD ([email or web address]) on 02/06/25 at 10:04. Electronically submitted by [employer] [email or web address]). ERIK GUAMAN MD Feb 06, 2025 10:04
[2025-02-06] MEDS ORDERED: FURO1TAB33 PO (10:16)
[2025-02-06] MEDS ORDERED: LEVO500T91 PO (10:16)
[2025-02-06 10:27] VITALS: BP 144/75; PULSE 81; RESP 16; TEMP 98.2; O2SAT 94
== END 2025-02-06 10:30 | disposition home or self-care (01) ==
LOC: ER 09:33
DX: S81.811A Laceration without foreign body, right lower leg, initial encounter (principal); S80.811A Abrasion, right lower leg, initial encounter; I89.0 Lymphedema, not elsewhere classified; I11.0 Hypertensive heart disease with heart failure; I50.9 Heart failure, unspecified; E11.9 Type 2 diabetes mellitus without complications; Z88.7 Allergy status to serum and vaccine; Z88.1 Allergy status to other antibiotic agents; Z88.0 Allergy status to penicillin; Z79.899 Other long term (current) drug therapy; W54.8XXA Other contact with dog, initial encounter; Y93.89 Activity, other specified; Y92.89 Other specified places as the place of occurrence of the external cause; Y99.8 Other external cause status
CPT/HCPCS: 12002

== ENCOUNTER 2025-02-22 07:35 | Outpatient (CLI) | payer OTHER ==
[~2025-02-22 07:35] MED LIST changes: +LEVO500T91 PO
[2025-02-22 08:52] LABS: Hematocrit 40.1 % (36.0-46.0); Hemoglobin 13.5 g/dL (12.2-16.2); Mean Corpuscular Hemoglobin 29.9 pg (28.0-32.0); Mean Corpuscular Volume 89.2 fL (80.0-100.0); Nucleated Red Blood Cells % 0.0 %
[2025-02-22 09:14] LABS: Alanine Aminotransferase 14 U/L (7-40); Albumin 4.5 g/dL (3.2-4.8); Alkaline Phosphatase 62 U/L (46-116); Anion Gap 8 (5-15); BUN/Creatinine Ratio 20.9 (10.0-20.0); Blood Urea Nitrogen 18 mg/dL (9-23); Calcium 9.3 mg/dL (8.7-10.4); Carbon Dioxide 27 mmol/L (20-31); Chloride 106 mmol/L (98-107); Cholesterol 197 mg/dL (< 200); HDL Cholesterol 55 mg/dL (40-59); Potassium 4.6 mmol/L (3.5-5.1); Sodium 141 mmol/L (136-145); Total Protein 7.4 g/dL (5.7-8.2); Triglycerides 121 mg/dL (< 150)
[2025-02-22 09:15] LABS: Bilirubin, Total 0.4 mg/dL (0.2-1.0)
[2025-02-22 09:19] LABS: Glucose 126 mg/dL (74-106)
[2025-02-22 12:31] LABS: Free T3 2.72 pg/mL (2.3-4.2); Free T4 (Free Thyroxine) 1.2 ng/dL (0.89-1.76)
== END 2025-02-22 17:00 | disposition home or self-care (01) ==
LOC: LAB 07:35
PROVIDERS: ATTEND Internal Medicine
DX: E11.628 Type 2 diabetes mellitus with other skin complications (principal); I89.0 Lymphedema, not elsewhere classified; E66.01 Morbid (severe) obesity due to excess calories; Z68.42 Body mass index [BMI] 45.0-49.9, adult
CPT/HCPCS: 36415; 80053; 80061; 82043; 82306; 83036; 84439; 84443; 84481; 85025

== ENCOUNTER 2025-03-27 11:28 | Inpatient (IN) | payer OTHER ==
[~2025-03-27] VITALS: Ht 165.1 cm; Wt 139.0 kg
[2025-03-27 12:57] LABS: Hematocrit 40.4 % (36.0-46.0); Hemoglobin 13.7 g/dL (12.2-16.2); Mean Corpuscular Hemoglobin 30.1 pg (28.0-32.0); Mean Corpuscular Volume 89.0 fL (80.0-100.0); Nucleated Red Blood Cells % 0.0 %
--- NOTE | 2025-03-27 13:11 | DVH ---
Technique: Real-time ultrasound imaging, with color Doppler and compression of the right common femo ral vein, femoral vein, greater saphenous vein, and popliteal vein. Indication: LEG SWELLIING Comparison: US BILAT LOWER DVT on DOS: 05/24/24, US BILAT LOWER DVT on DOS: 11/18/23 Findings: There is normal compressibility and flow augmentation in all of the imaged deep veins. There are no f illing defects. Impression: No evidence of DVT in the right lower extremity
[2025-03-27 13:17] LABS: Alanine Aminotransferase 16 U/L (7-40); Albumin 4.3 g/dL (3.2-4.8); Alkaline Phosphatase 73 U/L (46-116); Anion Gap 8 (5-15); BUN/Creatinine Ratio 19.4 (10.0-20.0); Blood Urea Nitrogen 19 mg/dL (9-23); Calcium 9.5 mg/dL (8.7-10.4); Chloride 103 mmol/L (98-107); Potassium 3.9 mmol/L (3.5-5.1); Sodium 142 mmol/L (136-145); Total Protein 7.7 g/dL (5.7-8.2)
[2025-03-27 13:18] LABS: Bilirubin, Total 0.3 mg/dL (0.2-1.0)
--- NOTE | 2025-03-27 13:20 | DVH ---
CHEST RADIOGRAPH Indication: LEG SWELLING Technique: Single frontal view of the chest was obtained Comparison: XY CHEST XRAY 1 VIEW on DOS: 05/24/24 FINDINGS: The cardiac silhouette is enlarged. The lungs demonstrate perihilar airspace opacities. The pulmonary vasculature is prominent. There is no pleural effusion. There is no pneumothorax. IMPRESSION: Cardiomegaly with pulmonary vascular congestion and bilateral perihilar airspace opacities.
[2025-03-27 13:34] LABS: Carbon Dioxide 31 mmol/L (20-31); Glucose 126 mg/dL (74-106)
--- NOTE | 2025-03-27 14:08 | ED.PDOC ---
Musculoskeletal HPI Comments HPI: This is a 59 year-old female who presents to the ED with a chief complaint of pain and swelling to the R lower extremity for X4 years. Patient reports additional R lower back pain, mild throat swelling, and a "pressure" to the R rib side. Patient came to the ED today for worsening swelling of the R lower extremity over the past X1 month. Patient has been taking Lasix for x1 year, as prescribed. Patient has no further complaints at this time and otherwise denies cough, chest pain, dizziness, headache, fever, chills. Past Medical History: Endometriosis Past Surgical History: Hysterectomy, Appendectomy Social History: None Medications: Metformin Allergies: Amoxicillin, Doxycycline HPI: Poor Historian. REVIEW OF SYSTEMS: CONSTITUTIONAL: Denies acute: fever, diaphoresis, chills, generalized weakness. HEAD: Denies acute: headache, photophobia Eyes: Denies acute: Double vision, vision loss, eye pain, eye discharge. EARS: Denies acute: tinnitus, hearing loss, ear discharge, ear pain, THROAT: Denies acute: sore throat, swelling, difficulty swallowing , pain with swallowing, change in voice. NECK: Denies acute: neck pain, neck swelling, stiff neck. HEART: Denies acute : chest pain, palpitations, LUNGS: Denies acute: SOB, wheezing, cough, hemoptysis ABDOMEN: Denies acute: abdominal pain, Nausea, Vomiting, diarrhea, melena , hematemesis, hematochezia SKIN: Denies acute: rash, redness, lesions, itchiness. EXTREMITIES: Denies acute: calf pain, numbness, tingling, weakness, Denies acute: Low back pain. Neuro: Denies acute: focal neurological deficit, motor or sensory focal neurological deficit, tremors, seizure like activity, confusion, dizziness, change in mental status, loss of bowel or bladder function, cauda equina like symptoms. : Denies acute: dysuria, hematuria, flank pain, increase in urinary frequency. PSYCH: Denies acute: hallucination, suicidal ideation, homicidal ideation. FEMALE: Denies acute: abnormal vaginal bleeding, foul odor, unusual discharge. PHYSICAL EXAM: General: ----[id number]----acute distress, awake and alert. Head: normocephalic, atraumatic. Neck: supple, trachea is midline, no swelling. Throat: Normal phonation. No obstruction, no exudates, no erythema, no swelling, no drooling Eyes:, no erythema, no purulent discharge, no proptosis, no icterus. Heart: regular rate, regular rhythm, no significant murmur appreciated. Lungs: no apparent respiratory distress, Able to speak in full sentences. No wheezing, no rhonchi, no crackles. No stridors Clear to auscultation bilaterally. Abdomen: non tender to palpation, non distended, soft, no guarding, no rebound, + bowel sounds. Morbidly obese Neuro: Awake, Alert, oriented to name, self, situation, follows commands GCS=15. Speech is normal. Skin: no petechia, no purpura, no cyanosis, non-pale, not jaundice. Lower extremities: Noted right lower extremity swelling compared to the left. Noted oozing of clear liquid consistent with volume overload/pitting edema. Minimal erythema noted in the right lower extremity [id number]. Makes eye contact. moves all four extremities. Face: no apparent facial droop. No CVA tenderness to percussion bilaterally. Ambulating in the ED independently. ED COURSE: DISCLAIMER: This medical document was created using an electronic medical record system with voice recognition software and computerized dictation system. Although this document has been carefully reviewed, there might still be some phonetic and typographical errors. Occasional wrong-word or "sound-alike" substitutions may have occurred due to the inherent limitations of voice recognition software. Th marco areas are purely typographical due to imperfections of the software programs and do not reflect any compromise in the patient's medical care. Please read the chart carefully and recognize, using context, where these substitutions have occurred. Chief Complaint: Lower Extremity Time Seen by MD: 13:41 Primary Care Provider: OSCAR Reviewed Notes: Medications, Allergies Allergies: Coded Allergies: Amoxicillin (Verified Allergy, Unknown, 03/27/25) Doxycycline (Verified Allergy, Unknown, 03/27/25) Uncoded Allergies: FLU SHOT (Allergy, Unknown, 05/24/24) Home Meds Active Scripts Furosemide (Lasix) 20 Mg Tb, 1 TAB PO DAILY for 30 Days, #30 TAB 1 Refill Prov:WILBERT OGDEN MD 03/30/25 Yeast (S. Boulardii)(S. Cerevi (Probiotic) 250 Mg Cap, 250 MG PO QAM for 30 Days, #30 CAP Prov:NADINE KING MD 06/01/24 Reported Medications Metformin Hydrochloride (Metformin Hcl) 500 Mg Tab, 500 MG PO BID for 30 Days, MG 03/27/25 Information Source: Patient Mode of Arrival: Ambulatory Location: Right Prehospital treatment: None Severity: Moderate Onset of Symptoms: Spontaneous Symptoms: Swelling, Pain Associated signs and symptoms: Leg pain Was a procedure done? Was a procedure done?: No Differential Diagnosis EXT Differential Diagnosis: Cellulitis, CHF, Deep Vein Thrombosis, Compartment Syndrome, Fracture, Sprain, Dislocation, Laceration, Gout, Myocardial Infarction, Contusion, Strain, Rheumatoid, Septic, Hernia, Neurovascular injury, Arthritis, Bursitis, Other (Leg swellingDdx include but not limited to DVT, ischemic limb, pitting edema, volume overload, CHF, cellulitis, hematoma, compartment syndrome, dependent edema, venous stasis.) X-Ray, Labs, Meds, VS Vital Signs Date Time Temp Pulse Resp B/P (MAP) Pulse Ox O2 Delivery O2 Flow Rate FiO2 03/27/25 17:09 97.9 61 18 160/82 (108) 97 97.9 03/27/25 16:56 97 Room Air* 0 21 03/27/25 15:46 148/85 03/27/25 11:29 98.6 70 18 153/87 93 98.6 Lab Test 03/27/25 12:36 Range/Units White Blood Count 6.3 4.4-10.8 10^3/uL Red Blood Count 4.54 4.0-5.20 10^6/uL Hemoglobin 13.7 12.2-16.2 g/dL Hematocrit 40.4 36.0-46.0 % Mean Corpuscular Volume 89.0 80.0-100.0 fL Mean Corpuscular Hemoglobin 30.1 28.0-32.0 pg Mean Corpuscular Hemoglobin Concent 33.8 32.0-36.0 g/dL Red Cell Distribution Width 13.5 11.8-14.3 % Platelet Count 239 140-450 10^3/uL Mean Platelet Volume 8.3 6.9-10.8 fL Neutrophils (%) (Auto) 67.0 37.0-80.0 % Lymphocytes (%) (Auto) 22.8 10.0-50.0 % Monocytes (%) (Auto) 7.6 0.0-12.0 % Eosinophils (%) (Auto) 1.8 0.0-7.0 % Basophils (%) (Auto) 0.8 0.0-2.0 % Neutrophils # (Auto) 4.3 1.6-8.6 10 ^3/uL Lymphocytes # (Auto) 1.4 0.4-5.4 10 ^3/uL Monocytes # (Auto) 0.5 0-1.3 10 ^3/uL Eosinophils # (Auto) 0.1 0-0.8 10 ^3/uL Basophils # (Auto) 0 0-0.2 10 ^3/uL Nucleated Red Blood Cells 0.0 % Erythrocyte Sedimentation Rate 48 H 0-20 mm/hr Sodium Level 142 136-145 mmol/L Potassium Level 3.9 3.5-5.1 mmol/L Chloride Level 103 98-107 mmol/L Carbon Dioxide Level 31 20-31 mmol/L Anion Gap 8 5-15 Blood Urea Nitrogen 19 9-23 mg/dL Creatinine 0.98 0.550-1.02 mg/dL Glomerular Filtration Rate Calc 66 >90 mL/min BUN/Creatinine Ratio 19.4 10.0-20.0 Serum Glucose 126 H 74-106 mg/dL Lactic Acid Level 1.0 0.4-2.0 mmol/L Calcium Level 9.5 8.7-10.4 mg/dL Total Bilirubin 0.3 0.2-1.0 mg/dL Aspartate Amino Transferase (AST) 17 13-40 U/L Alanine Aminotransferase (ALT) 16 7-40 U/L Alkaline Phosphatase 73 46-116 U/L Troponin I High Sensitivity 4 </=34 ng/L C-Reactive Protein High Sensitivity 1.64 H <1.0 mg/dL B-Type Natriuretic Peptide 10.13 0-100 pg/mL Total Protein 7.7 5.7-8.2 g/dL Albumin 4.3 3.2-4.8 g/dL [facility] [id number] [place] [id number] Ph: [phone] DIAGNOSTIC IMAGING Diagnostic Imaging Report : [id number] Signed PATIENT: LETI NEW ACCT: [id number] UNIT: [id number] : 1965 LOC: ER ROOM / BED: / AGE / SEX: 59 / F ADM STATUS: REG ER SERVICE 1225 ORDERING PHYSICIAN: TALIB LEES DO PROCEDURE(s): RLDVT - RT Lower DVT REASON: LEG SWELLIING ORDER NUMBER(s): [id number], ACCESSION NUMBER(s): [id number] Technique: Real-time ultrasound imaging, with color Doppler and compression of the right common femoral vein, femoral vein, greater saphenous vein, and popliteal vein. Indication: LEG SWELLIING Comparison: US BILAT LOWER DVT on DOS: 05/24/24, US BILAT LOWER DVT on DOS: 11/18/23 Findings: There is normal compressibility and flow augmentation in all of the imaged deep veins. There are no filling defects. Impression: No evidence of DVT in the right lower extremity [place] [address] Ph: [phone] DIAGNOSTIC IMAGING Diagnostic Imaging Report : [id number] Signed PATIENT: LETI NEW ACCT: [id number] UNIT: [id number] : 1965 LOC: ER ROOM / BED: / AGE / SEX: 59 / F ADM STATUS: REG ER SERVICE 1225 ORDERING PHYSICIAN: TALIB LEES DO PROCEDURE(s): CXRP - CHEST PORTABLE REASON: LEG SWELLING ORDER NUMBER(s): [id number], ACCESSION NUMBER(s): [id number] CHEST RADIOGRAPH Indication: LEG SWELLING Technique: Single frontal view of the chest was obtained Comparison: XY CHEST XRAY 1 VIEW on DOS: 05/24/24 FINDINGS: The cardiac silhouette is enlarged. The lungs demonstrate perihilar airspace opacities. The pulmonary vasculature is prominent. There is no pleural effusion. There is no pneumothorax. IMPRESSION: Cardiomegaly with pulmonary vascular congestion and bilateral perihilar airspace opacities. Images Reviewed?: Images reviewed and evaluated by me Time of 1ST Reevaluation: 14:44 Reevaluation 1ST: Unchanged Patient Education/Counseling: Diagnosis, Treatment Family Education/Counseling: No Family Present Comments MDM: patient presented with the above HPI.-leg swelling----workup was i nitiated. patient was found with the above mentioned diagnosis. the following medications were ordered: please refer to order lists of meds and tests obtained by myself Dr. Lees. Patient ED course and VS have been stabilized. Patient has been reassessed in the ED and remained in a stable condition. Pertinent incidental findings were discussed with the patient and/or family. Patient/family voices understanding and is agreeable with plan. Patient has been observed in the ED adequate length of time to insure improvement/stability. Escalation of care considered: Consideration of escalation to observation or admission Chest x-ray suggested pulmonary vascular congestion. Patient was given Lasix. Patient was also started on Rocephin for possible underlying pneumonia. Patient was ADMITTED to the medicine team for further evaluation and treatment of their presentation. All the reports of any imaging studies that were ordered by myself were reviewed by myself. Departure 1 Departure Time of Disposition: 15:16 Impression: Primary Impression: Pneumonia Additional Impressions: Pulmonary vascular congestion Volume overload Right leg swelling Disposition: ADMITTED INPATIENT Admit to: Tele Condition: Guarded e-Prescriptions Furosemide (Lasix) 20 Mg Tb 1 TAB PO DAILY for 30 Days, #30 TAB 1 Refill Prov: WILBERT OGDEN MD 03/30/25 Discharged With: Self Critical Care Note Critical Care Time?: No I personally scribed for TALIB LEES DO ([email or web address]) on 03/27/25 at 14:08. Electronically submitted by Radha Silver ([facility]). I personally scribed for TALIB LEES DO ([email or web address]) on 03/27/25 at 15:11. Electronically submitted by Radha Silver ([facility]). TALIB LEES DO Mar 27, 2025 14:08
[2025-03-27] MEDS: FUROSEMIDE 100 MG/10ML VIAL IV ONE (15:46)
[2025-03-27 16:56] VITALS: O2SAT 97
[2025-03-27] MEDS ORDERED: ACETAMINOPHEN 325 MG TAB PO PRN (17:15)
[2025-03-27] MEDS ORDERED: MORPHINE SULFATE INJ 2 MG/ml SYRG IV PRN ×2 (17:15)
[2025-03-27] MEDS ORDERED: ONDANSETRON HCL 4 MG/2 ML VIAL IV PRN (17:15)
[2025-03-27] MEDS ORDERED: NITROGLYCERIN 0.4 MG SL TAB SL PRN (17:15)
--- NOTE | 2025-03-27 17:15 | DVHHPRES ---
History of Present Illness Resident Creating Document: ANTONIO FRAGA RESIDENT History of Present Illness 59 yo with a history of lymphemeda but denies history of CHF or hypertension comes for complaints of leg pain and swelling and the inability to control the swelling in the legs came to the ED. Patient complaint of pain and swelling to the R lower extremity for X4 years. Patient reports additional R lower back pain, mild throat swelling, and a "pressure" to the R rib side. Patient has been taking Lasix for x1 year. Pt denies denies cough, chest pain, dizziness, headache, fever, chills. Endocrine: Diabetes Review of Systems Review of Systems Constitutional: No: Fever, Chills, Sweats, Weakness, Malaise, Other Eyes: No: Pain, Vision change, Conjunctivae inflammation, Eyelid inflammation, Other, Redness ENT: No: Ear pain, Ear discharge, Nose pain, Nose discharge, Nose congestion, Mouth pain, Mouth swelling, Throat pain, Throat swelling, Other Respiratory: No: Cough, Dry, Shortness of breath, SOB with excertion, Wheezing, Hemoptysis, Pleuritic Pain, Sputum, Wheezing, Other Cardiovascular: No: Chest Pain, Palpitations, Orthopnea, Paroxysmal Noc. Dyspnea, Edema, Lt Headedness, Other Gastrointestinal: No: Nausea, Vomiting, Abdominal Pain, Diarrhea, Constipation, Melena, Hematochezia, Other Genitourinary: No Dysuria, No Frequency, No Incontinence, No Hematuria, No Retention, No Other Musculoskeletal: Back pain, arm pain; No: other, neck pain, shoulder pain, back pain, hand pain, leg pain, foot pain Allergies: Coded Allergies: Amoxicillin (Verified Allergy, Unknown, 03/27/25) Doxycycline (Verified Allergy, Unknown, 03/27/25) Uncoded Allergies: FLU SHOT (Allergy, Unknown, 05/24/24) Exam Vital Signs Vital Signs Date Time Temp Pulse Resp B/P (MAP) Pulse Ox O2 Delivery O2 Flow Rate FiO2 03/27/25 17:09 97.9 61 18 160/82 (108) 97 97.9 03/27/25 16:56 Room Air* 0 21 Exam General Appearance: Alert, Oriented X3 HEENT: Atraumatic, PERRLA Respiratory: Clear to auscultation, Normal air movement Cardiovascular: Regular rate, Normal S1, Normal S2 Abdominal: Normal bowel sounds, Soft Extremities: B/L LE edema noted ( R>L) Skin: No rashes, No breakdown Neuro: Normal speech. Labs/Xrays Labs Test 03/27/25 12:36 Range/Units White Blood Count 6.3 4.4-10.8 10^3/uL Red Blood Count 4.54 4.0-5.20 10^6/uL Hemoglobin 13.7 12.2-16.2 g/dL Hematocrit 40.4 36.0-46.0 % Mean Corpuscular Volume 89.0 80.0-100.0 fL Mean Corpuscular Hemoglobin 30.1 28.0-32.0 pg Mean Corpuscular Hemoglobin Concent 33.8 32.0-36.0 g/dL Red Cell Distribution Width 13.5 11.8-14.3 % Platelet Count 239 140-450 10^3/uL Mean Platelet Volume 8.3 6.9-10.8 fL Neutrophils (%) (Auto) 67.0 37.0-80.0 % Lymphocytes (%) (Auto) 22.8 10.0-50.0 % Monocytes (%) (Auto) 7.6 0.0-12.0 % Eosinophils (%) (Auto) 1.8 0.0-7.0 % Basophils (%) (Auto) 0.8 0.0-2.0 % Neutrophils # (Auto) 4.3 1.6-8.6 10 ^3/uL Lymphocytes # (Auto) 1.4 0.4-5.4 10 ^3/uL Monocytes # (Auto) 0.5 0-1.3 10 ^3/uL Eosinophils # (Auto) 0.1 0-0.8 10 ^3/uL Basophils # (Auto) 0 0-0.2 10 ^3/uL Nucleated Red Blood Cells 0.0 % Erythrocyte Sedimentation Rate 48 H 0-20 mm/hr Sodium Level 142 136-145 mmol/L Potassium Level 3.9 3.5-5.1 mmol/L Chloride Level 103 98-107 mmol/L Carbon Dioxide Level 31 20-31 mmol/L Anion Gap 8 5-15 Blood Urea Nitrogen 19 9-23 mg/dL Creatinine 0.98 0.550-1.02 mg/dL Glomerular Filtration Rate Calc 66 >90 mL/min BUN/Creatinine Ratio 19.4 10.0-20.0 Serum Glucose 126 H 74-106 mg/dL Lactic Acid Level 1.0 0.4-2.0 mmol/L Calcium Level 9.5 8.7-10.4 mg/dL Total Bilirubin 0.3 0.2-1.0 mg/dL Aspartate Amino Transferase (AST) 17 13-40 U/L Alanine Aminotransferase (ALT) 16 7-40 U/L Alkaline Phosphatase 73 46-116 U/L Troponin I High Sensitivity 4 </=34 ng/L C-Reactive Protein High Sensitivity 1.64 H <1.0 mg/dL B-Type Natriuretic Peptide 10.13 0-100 pg/mL Total Protein 7.7 5.7-8.2 g/dL Albumin 4.3 3.2-4.8 g/dL SEPSIS Sepsis Screen Date sepsis recognized/suspect: Mar 27, 2025 Time Sepsis recognized/suspect: 1133 Recent Procedure: No On Antibiotic Therapy: No Respiratory Rate >20: No Heart Rate >90: No Temp<36 C (96.8 F) or >38.3 C: No SBP <90 or MAP <65 mmHG: No New Acute Mental Status Change: No Is the patient on CPAP, BIPAP,: No Physician Orders Senior Partner (03/27/25 ) Chest Portable (03/27/25 12:25) Electrocardigram (03/27/25 12:25) Rt Lower Dvt (03/27/25 12:25) Admit (03/27/25 17:09) Code Status (03/27/25 17:09) Acetaminophen Tablet (Tylenol Tablet) (03/27/25 17:15) Hydrocodone-Acet 5/325mg Tab ([place] 5/32 (03/27/25 17:15) Ondansetron Hcl (Zofran) (03/27/25 17:15) Enoxaparin Sodium (Lovenox) (03/28/25 10:00) Complete Blood Count (03/28/25 04:00) Comprehensive Metabolic Panel (03/28/25 04:00) Cardiac Diet-2gna,Lofat,Lochol (03/27/25 Dinner) Morphine Sulfate Injection (03/27/25 17:15) Nitroglycerin Sublingual (Ntrostat Subli (03/27/25 17:15) Morphine Sulfate Injection (03/27/25 17:15) Oxygen By Nasal Cannula (03/27/25 17:09) Stat Ekg For Chest Pain (03/27/25 17:09) Notify Of Changes From Base (03/27/25 17:09) Emergency Dysrhythmia Protocol (03/27/25 17:09) Ceftriaxone Ivpb Rocephin (03/28/25 10:00) Azithromycin 500mg/ 250ml (Zithromax 50 (03/28/25 10:00) Furosemide Injection (Lasix Injection) (03/28/25 10:00) Vital Signs Date Time Temp Pulse Resp B/P (MAP) Pulse Ox O2 Delivery O2 Flow Rate FiO2 03/27/25 17:09 97.9 61 18 160/82 (108) 97 97.9 03/27/25 16:56 97 Room Air* 0 21 03/27/25 15:46 148/85 03/27/25 11:29 98.6 70 18 153/87 93 98.6 Laboratory Tests Test 03/27/25 12:36 Lactic Acid Level 1.0 mmol/L (0.4-2.0) White Blood Count 6.3 10^3/uL (4.4-10.8) Medications Medications Dose Ordered Sig/Lyudmila Route Start Time Stop Time Status Last Admin Dose Admin Ceftriaxone Sodium 50 ml @ 50 mls/hr ONCE ONCE IV 03/27/25 15:30 03/27/25 16:29 DC 03/27/25 15:46 50 MLS/HR Furosemide 60 mg ONCE ONCE IV 03/27/25 15:30 03/27/25 15:31 DC 03/27/25 15:46 60 MG Assessment/Plan Assessment/Plan # Possible Gram-positive/negative bacterial pneumonia - CXR shows: Cardiomegaly with pulmonary vascular congestion and bilateral perihilar airspace opacities. - empiric antibiotic IV Rocephin and IV azithromycin # Chronic low back pain with bilateral sciatica # Lymphedema # cellulitis - Patient has significant lymphedema - pain management - elevate legs - compression - diuresis - continue antibiotics # DM2 - sliding scale insulin # DVT Prop- Lovenox Subq Goal of care discussed with patient for 30 minutes: Full code Case discussed with Dr. Burton Plan discussed with: Patient My Orders Orders - ANTONIO FRAGA RESIDENT Procedure Category Date Status Time Admit ADMIT 03/27/25 Transmitted 17:09 Code Status CODE 03/27/25 Transmitted 17:09 Acetaminophen Tablet PHA 03/27/25 Transmitted (Tylenol Tablet) 17:15 Hydrocodone-Acet PHA 03/27/25 Transmitted 5/325mg Tab ([place] 17:15 Ondansetron Hcl PHA 03/27/25 Transmitted (Zofran) 17:15 Enoxaparin Sodium PHA 03/28/25 Transmitted (Lovenox) 10:00 Complete Blood Count LAB 03/28/25 Verified 04:00 Comprehensive LAB 03/28/25 Verified Metabolic Panel 04:00 Cardiac DIET 03/27/25 Transmitted Diet-2gna,Lofat,Lochol Dinner Morphine Sulfate PHA 03/27/25 Transmitted Injection 17:15 Nitroglycerin PHA 03/27/25 Transmitted Sublingual (Ntrostat 17:15 Morphine Sulfate PHA 03/27/25 Transmitted Injection 17:15 Oxygen By Nasal RT 03/27/25 Transmitted Cannula 17:09 Stat Ekg For Chest LESLEY 03/27/25 Transmitted Pain 17:09 Notify Md Of Changes L[place]LEY 03/27/25 Transmitted From Base 17:09 Emergency Dysrhythmia LESLEY 03/27/25 Transmitted Protocol 17:09 Ceftriaxone Ivpb PHA 03/28/25 Transmitted Rocephin 10:00 Azithromycin 500mg/ PHA 03/28/25 Transmitted 250ml (Zithromax 50 10:00 Furosemide Injection PHA 03/28/25 Transmitted (Lasix Injection) 10:00 Date of Service: Mar 27, 2025 ([place] Patient) Billing Provider: RODDY BURTON MD Common Visit Codes: [id number] INP/OBS CARE (HIGH) Secondary Visit Codes: [id number]-[id number] CARE PLAN 30 MINUTES ANTONIO FRAGA RESIDENT Mar 27, 2025 17:15 RODDY BURTON MD Mar 28, 2025 12:53
[2025-03-27 18:49] VITALS: BP 138/79; PULSE 73; RESP 16; TEMP 98.2; O2SAT 97
[2025-03-27] MEDS ORDERED: METF-370 PO (18:49)
[2025-03-27 20:00] VITALS: PULSE 73; RESP 17; O2SAT 98
[2025-03-27] MEDS: HYDROcodone-ACET 5/325MG TAB PO PRN (20:38)
[2025-03-27 21:00] VITALS: BP 140/84; PULSE 86; RESP 20; TEMP 98.8; O2SAT 95
[2025-03-28] VITALS (7 sets, daily range): BP systolic 124–155; BP diastolic 65–99; PULSE 72–87; RESP 16–19; TEMP 96.9–98.2; O2SAT 90–97
[2025-03-28] MEDS ORDERED: DEXTROSE (50%) 50ML SYRG IV PRN (04:30)
[2025-03-28 05:17] LABS: Alanine Aminotransferase 13 U/L (7-40); Albumin 4.1 g/dL (3.2-4.8); Alkaline Phosphatase 68 U/L (46-116); Anion Gap 9 (5-15); BUN/Creatinine Ratio 22.6 (10.0-20.0); Bilirubin, Total 0.4 mg/dL (0.2-1.0); Blood Urea Nitrogen 24 mg/dL (9-23); Calcium 9.2 mg/dL (8.7-10.4); Carbon Dioxide 30 mmol/L (20-31); Chloride 101 mmol/L (98-107); Glucose 127 mg/dL (74-106); Potassium 3.8 mmol/L (3.5-5.1); Sodium 140 mmol/L (136-145); Total Protein 7.3 g/dL (5.7-8.2)
[2025-03-28 05:23] LABS: Hematocrit 40.5 % (36.0-46.0); Hemoglobin 13.6 g/dL (12.2-16.2); Mean Corpuscular Hemoglobin 29.8 pg (28.0-32.0); Mean Corpuscular Volume 89.0 fL (80.0-100.0); Nucleated Red Blood Cells % 0.0 %
[2025-03-28] MEDS: ACCU-CHEK COMFORT CURVE STRIP VI SCH (06:15)
[2025-03-28] MEDS: InsuLIN REG 1unit/0.01ml Soln (100units/ml) SC SCH (06:16)
[2025-03-28] MEDS: ENOXAPARIN SOD 40 MG/0.4 ML SYRINGE SC SCH (10:44)
[2025-03-28] MEDS: FUROSEMIDE 40 MG/4 ML VIAL IV SCH (10:45)
--- NOTE | 2025-03-28 11:49 | DVHPN2 ---
Subjective better Reviewed: Care Plan, H&P, Labs, Medications, Previous Orders, Radiology Changes from previous H/P or p: No Changes Objective Vitals Vital Signs Date Time Temp Pulse Resp B/P (MAP) Pulse Ox O2 Delivery O2 Flow Rate FiO2 03/28/25 10:45 146/87 03/28/25 09:00 98.1 73 16 94 98.1 03/28/25 07:36 Room Air* 0 21 Intake/Output Intake and Output 03/28/25 07:00 Intake Total 1400 ml Balance 1400 ml Intake Oral 1400 ml # Voids 5 General Appearance: Alert, Oriented X3, Cooperative, No acute distress HEENT: Atraumatic Lungs: Other (few crackles b lungs) Cardiovascular: Regular rate Abdomen: Normal bowel sounds, Soft, No tenderness Extremities: Other (edema B LE, REDNESS AND WARMTH RLE) Medications Current Medications Medications Dose Ordered Sig/Lyudmila Route Start Time Stop Time Status Last Admin Dose Admin Acetaminophen 325 mg Q4HP PRN PO 03/27/25 17:15 Acetaminophen/ Hydrocodone Bitart 1 tab Q4HP PRN PO 03/27/25 17:15 03/27/25 20:38 1 TAB Ondansetron HCl 4 mg Q4HP PRN IV 03/27/25 17:15 Enoxaparin Sodium 40 mg DAILY SC 03/28/25 10:00 03/28/25 10:44 40 MG Morphine Sulfate 2 mg Q4HPRN PRN IV 03/27/25 17:15 Nitroglycerin 0.4 mg Q5MINP PRN SL 03/27/25 17:15 Morphine Sulfate 2 mg Q30M PRN IV 03/27/25 17:15 Ceftriaxone Sodium 50 ml @ 100 mls/hr DAILY IV 03/28/25 10:00 03/28/25 11:36 100 MLS/HR Azithromycin 250 ml @ 125 mls/hr DAILY IV 03/28/25 10:00 Furosemide 40 mg DAILY IV 03/28/25 10:00 03/28/25 10:45 40 MG Diagnostic Test (Pha) 1 strip ACHS 03/28/25 07:00 03/28/25 06:15 1 STRIP Insulin Human Regular ACHS SC 03/28/25 07:00 03/28/25 06:16 3 UNITS Dextrose 50 ml UD PRN IV 03/28/25 04:30 Laboratory Results Laboratory Tests 03/28/25 04:06 Chemistry Test 03/27/25 12:36 03/28/25 04:06 Albumin 4.3 g/dL (3.2-4.8) 4.1 g/dL (3.2-4.8) Calcium Level 9.5 mg/dL (8.7-10.4) 9.2 mg/dL (8.7-10.4) Total Protein 7.7 g/dL (5.7-8.2) 7.3 g/dL (5.7-8.2) Cardiac Markers Test 03/27/25 12:36 B-Type Natriuretic Peptide 10.13 pg/mL (0-100) LFT Test 03/27/25 12:36 03/28/25 04:06 Alanine Aminotransferase (ALT) 16 U/L (7-40) 13 U/L (7-40) Alkaline Phosphatase 73 U/L (46-116) 68 U/L (46-116) Aspartate Amino Transferase (AST) 17 U/L (13-40) 16 U/L (13-40) Total Bilirubin 0.3 mg/dL (0.2-1.0) 0.4 mg/dL (0.2-1.0) HgA1c, TSH Test 03/28/25 04:06 Hemoglobin A1c 6.5 % A1C (<5.7) H Assessment/Plan Assessment/Plan Pneumonia/bilateral opacities Right lower extremity cellulitis Diabetes Heart failure Plan: IV antibiotics. Repeat labs. Continue current plan of care. Further plan per orders Plan discussed with: Patient Date of Service: Mar 28, 2025 Billing Provider: CYNTHIA CHAMPION MD Common Visit Codes: [id number] INP/OBS CARE(HIGH) CYNTHIA CHAMPION MD Mar 28, 2025 11:49
[2025-03-28] MEDS: AZITHROMYCIN 500MG/ 250ML 250 ML IV SCH (12:39)
[2025-03-28] MEDS: LOSARTAN POTASSIUM 25 MG TAB PO ONE (18:22)
[2025-03-28 23:28] LABS: Urine Protein, UAD Negative (Negative)
[2025-03-29] VITALS (8 sets, daily range): BP systolic 122–150; BP diastolic 69–88; PULSE 74–94; RESP 16–19; TEMP 97.4–98.3; O2SAT 92–98
--- NOTE | 2025-03-29 04:43 | DVH ---
CHEST RADIOGRAPH Indication: fu Technique: Single frontal view of the chest was obtained COMPARISON: XY CHEST PORTABLE on DOS: 03/27/25, XY CHEST XRAY 1 VIEW on DOS: 05/24/24 FINDINGS: Lines and Tubes: None Lungs: Moderate diffuse increased prominence of the pulmonary vasculature without evidence of focal c onsolidation. Pleura: No effusion. No pneumothorax. Cardiomediastinal contours: Cardiomegaly. Bones: Unremarkable IMPRESSION: 1. Cardiomegaly with moderate pulmonary vascular congestion.
[2025-03-29] MEDS: POLYETHYLENE GLYCOL 17 GM PWDR PO ONE (05:53)
[2025-03-29] MEDS: EMPAGLIFLOZIN 10 MG TAB PO SCH (09:33)
[2025-03-29] MEDS: LOSARTAN POTASSIUM 25 MG TAB PO SCH (09:33)
--- NOTE | 2025-03-29 12:17 | DVHSR ---
APPROVED REPORT EXAM: Two-dimensional and M-mode echocardiogram with Doppler and color Doppler. Blood Pressure: 149/85 mmHg INDICATION HF RISK FACTORS Height: 65, Weight: 306 DIMENSIONS LVDd4.2 (3.8-5.7cm)LA (2D) (1.9-4.0cm)Aortic Root3.4 (2.0-3.7cm) LVDs3.0 (2.5-4.0cm)LA (MM) (1.9-4.0cm)Aortic Cusp Exc1.9 (1.5-2.0cm) EF (%) 55.0 (55-70%)Rt. Atrium (1.9-4.0cm)Asc. Aorta cm Mitral Valve MitralMitral Stenosis E wave0.84m/sMV Mean GR.mmHg A wave1.13m/sMV Peak GR.mmHg E/A ratio0.72D MVAcm2 DECEL [id number] 1/2 Pzkb25en IVRTmsDop MVA3.10cm2 Aortic Valve Aortic ValveAortic Stenosis V11.09m/Claudia Mean GR.8mmHg V21.98m/Claudia Peak GR.16mmHg LVOT Diameter2.0 (1.8-2.4cm)Doppler AVA1.73cm2 Pulmonic Valve V21.24m/s Tricuspid Valve TR Velocity2.05m/s [id number] Other Information Technically limited study due to body habitus. Conclusion lvef 55-60% mild lvh normal rv function left atrium enlarged mild
--- NOTE | 2025-03-29 15:48 | DVHPN2 ---
Subjective Patient continues to have swelling, although improving. Seen at bedside today. Reviewed: Care Plan, H&P, Labs, Medications, Previous Orders, Radiology Changes from previous H/P or p: No Changes Objective Vitals Vital Signs Date Time Temp Pulse Resp B/P (MAP) Pulse Ox O2 Delivery O2 Flow Rate FiO2 03/29/25 15:08 157/82 03/29/25 12:59 98.0 76 16 97 98.0 03/29/25 08:00 Room Air* 0 21 Intake/Output Intake and Output 03/29/25 07:00 Intake Total 1890 ml Output Total 1900 ml Balance -10 ml Intake Oral 1590 ml IV Total 300 ml Output Urine Total 1900 ml # Voids 15 Exam GEN: Healthy appearing, well-developed, NAD. HEENT: NC/AT; MMM. CV: RRR, no m/r/g. LUNGS: CTAB, no w/r/c. ABD: Soft, NT/ND, NBS, no masses or organomegaly. EXT: Bilateral lower extremity swelling, right more than left with +1 pitting edema NEURO: Ambulating with no limitations. No focal deficits. General Appearance: Alert, Oriented X3, Cooperative, No acute distress HEENT: Atraumatic Lungs: Other (few crackles b lungs) Cardiovascular: Regular rate Abdomen: Normal bowel sounds, Soft, No tenderness Extremities: Other (edema B LE, REDNESS AND WARMTH RLE) Medications Current Medications Medications Dose Ordered Sig/Lyudmila Route Start Time Stop Time Status Last Admin Dose Admin Acetaminophen 325 mg Q4HP PRN PO 03/27/25 17:15 Acetaminophen/ Hydrocodone Bitart 1 tab Q4HP PRN PO 03/27/25 17:15 03/28/25 22:09 1 TAB Ondansetron HCl 4 mg Q4HP PRN IV 03/27/25 17:15 Enoxaparin Sodium 40 mg DAILY SC 03/28/25 10:00 03/29/25 09:32 40 MG Morphine Sulfate 2 mg Q4HPRN PRN IV 03/27/25 17:15 Nitroglycerin 0.4 mg Q5MINP PRN SL 03/27/25 17:15 Morphine Sulfate 2 mg Q30M PRN IV 03/27/25 17:15 Ceftriaxone Sodium 50 ml @ 100 mls/hr DAILY IV 03/28/25 10:00 03/29/25 15:05 100 MLS/HR Azithromycin 250 ml @ 125 mls/hr DAILY IV 03/28/25 10:00 03/29/25 15:08 125 MLS/HR Furosemide 40 mg DAILY IV 03/28/25 10:00 03/29/25 15:08 40 MG Diagnostic Test (Pha) 1 strip ACHS 03/28/25 07:00 03/29/25 15:09 1 STRIP Insulin Human Regular ACHS SC 03/28/25 07:00 03/29/25 06:23 2 UNITS Dextrose 50 ml UD PRN IV 03/28/25 04:30 Losartan Potassium 25 mg DAILY PO 03/29/25 10:00 03/29/25 09:33 25 MG Empaglifozin 10 mg DAILY PO 03/29/25 10:00 03/29/25 09:33 10 MG Laboratory Results Laboratory Tests 03/28/25 04:06 Urinalysis Test 03/28/25 23:10 Urine Color Yellow (Yellow) Urine Clarity Clear (Clear) Urine pH 5.5 (5.0-9.0) Urine Specific [place] 1.029 (1.001-1.035) Urine Protein Negative (Negative) Urine Ketones Negative (Negative) Urine Blood Negative /uL (Negative) Urine Nitrite Negative (Negative) Urine Bilirubin Negative (Negative) Urine Urobilinogen Normal mg/dL (Negative) Urine Leukocyte Esterase Trace /uL (Negative) Urine RBC None seen /hpf (0 - 4) Urine Microscopic WBC 3 /HPF (0-5) Urine Squamous Epithelial Cells Few /hpf (<5) Urine Bacteria None seen /hpf (None Seen) Urine Glucose Normal mg/dL (Normal) Labs and/or images reviewed: Labs reviewed by me, Image(s) reviewed by me Assessment/Plan Assessment/Plan 59 yo with a history of lymphemeda but denies history of CHF or hypertension comes for complaints of leg pain and swelling and the inability to control the swelling in the legs came to the ED. Patient complaint of pain and swelling to the R lower extremity for X4 years. Patient reports additional R lower back pain, mild throat swelling, and a "pressure" to the R rib side. Patient has been taking Lasix for x1 year. Pt denies denies cough, chest pain, dizziness, headache, fever, chills. 03/29: Today discussed with patient to elevate the leg and end of night every night, and consider investigating into compression device and during daytime use compression socks. For now continue IV Lasix and IV antibiotics. # cellulitis right LE # Lymphedema # Possible Gram-positive/negative bacterial pneumonia # Chronic low back pain with bilateral sciatica # DM2 with hyperglycemia Plan: Continue Lasix -continue IV antibiotics azithromycin Rocephin -continue elevation legs, compression. Continue sliding scale insulin a.c. HS mild. Med surge Full code Plan discussed with: Patient Date of Service: Mar 29, 2025 Billing Provider: WILBERT OGDEN MD Common Visit Codes: [id number] INP/OBS CARE(HIGH) WILBERT OGDEN MD Mar 29, 2025 15:48
[2025-03-30 01:00] VITALS: BP 117/72; PULSE 74; RESP 17; TEMP 98.1; O2SAT 92
[2025-03-30 05:00] VITALS: BP 111/67; PULSE 76; RESP 18; TEMP 97.7; O2SAT 92
[2025-03-30 06:04] LABS: Hematocrit 40.3 % (36.0-46.0); Hemoglobin 13.8 g/dL (12.2-16.2); Mean Corpuscular Hemoglobin 30.6 pg (28.0-32.0); Mean Corpuscular Volume 89.5 fL (80.0-100.0); Nucleated Red Blood Cells % 0.0 %
[2025-03-30 06:32] LABS: Alanine Aminotransferase 14 U/L (7-40); Albumin 4.1 g/dL (3.2-4.8); Alkaline Phosphatase 70 U/L (46-116); Anion Gap 11 (5-15); BUN/Creatinine Ratio 20.6 (10.0-20.0); Bilirubin, Total 0.5 mg/dL (0.2-1.0); Blood Urea Nitrogen 21 mg/dL (9-23); Calcium 9.3 mg/dL (8.7-10.4); Carbon Dioxide 29 mmol/L (20-31); Chloride 101 mmol/L (98-107); Potassium 3.7 mmol/L (3.5-5.1); Sodium 141 mmol/L (136-145); Total Protein 7.3 g/dL (5.7-8.2)
[2025-03-30 06:33] LABS: Glucose 139 mg/dL (74-106)
[2025-03-30 08:05] VITALS: PULSE 80; RESP 18; O2SAT 95
[2025-03-30 09:00] VITALS: BP 128/68; PULSE 77; RESP 18; TEMP 97.4; O2SAT 97
[2025-03-30] MEDS: AZITHROMYCIN 250 MG TAB PO SCH (09:42)
--- NOTE | 2025-03-30 10:14 | DVHDS2 ---
Discharge Summary Date of Admission Mar 27, 2025 at 17:09 Date of Discharge: Mar 30, 2025 Labs/Diagnostic Data: Laboratory Results Test 03/30/25 05:31 03/30/25 05:20 03/28/25 23:10 03/28/25 04:06 White Blood Count 6.4 10^3/uL (4.4-10.8) Red Blood Count 4.50 10^6/uL (4.0-5.20) Hemoglobin 13.8 g/dL (12.2-16.2) Hematocrit 40.3 % (36.0-46.0) Mean Corpuscular Volume 89.5 fL (80.0-100.0) Mean Corpuscular Hemoglobin 30.6 pg (28.0-32.0) Mean Corpuscular Hemoglobin Concent 34.2 g/dL (32.0-36.0) Red Cell Distribution Width 13.4 % (11.8-14.3) Platelet Count 222 10^3/uL (140-450) Mean Platelet Volume 8.5 fL (6.9-10.8) Neutrophils (%) (Auto) 61.3 % (37.0-80.0) Lymphocytes (%) (Auto) 26.0 % (10.0-50.0) Monocytes (%) (Auto) 10.2 % (0.0-12.0) Eosinophils (%) (Auto) 1.8 % (0.0-7.0) Basophils (%) (Auto) 0.7 % (0.0-2.0) Neutrophils # (Auto) 4.0 10 ^3/uL (1.6-8.6) Lymphocytes # (Auto) 1.7 10 ^3/uL (0.4-5.4) Monocytes # (Auto) 0.7 10 ^3/uL (0-1.3) Eosinophils # (Auto) 0.1 10 ^3/uL (0-0.8) Basophils # (Auto) 0 10 ^3/uL (0-0.2) Nucleated Red Blood Cells 0.0 % Sodium Level 141 mmol/L (136-145) Potassium Level 3.7 mmol/L (3.5-5.1) Chloride Level 101 mmol/L (98-107) Carbon Dioxide Level 29 mmol/L (20-31) Anion Gap 11 (5-15) Blood Urea Nitrogen 21 mg/dL (9-23) Creatinine 1.02 mg/dL (0.550-1.02) Glomerular Filtration Rate Calc 63 mL/min (>90) BUN/Creatinine Ratio 20.6 (10.0-20.0) Serum Glucose 139 mg/dL (74-106) Calcium Level 9.3 mg/dL (8.7-10.4) Total Bilirubin 0.5 mg/dL (0.2-1.0) Aspartate Amino Transferase (AST) 16 U/L (13-40) Alanine Aminotransferase (ALT) 14 U/L (7-40) Alkaline Phosphatase 70 U/L (46-116) Total Protein 7.3 g/dL (5.7-8.2) Albumin 4.1 g/dL (3.2-4.8) POC Glucose 142 mg/dl (70-106) Urine Color Yellow (Yellow) Urine Clarity Clear (Clear) Urine pH 5.5 (5.0-9.0) Urine Specific [place] 1.029 (1.001-1.035) Urine Protein Negative (Negative) Urine Ketones Negative (Negative) Urine Blood Negative /uL (Negative) Urine Nitrite Negative (Negative) Urine Bilirubin Negative (Negative) Urine Urobilinogen Normal mg/dL (Negative) Urine Leukocyte Esterase Trace /uL (Negative) Urine RBC None seen /hpf (0 - 4) Urine Microscopic WBC 3 /HPF (0-5) Urine Squamous Epithelial Cells Few /hpf (<5) Urine Bacteria None seen /hpf (None Seen) Urine Glucose Normal mg/dL (Normal) Hemoglobin A1c 6.5 % A1C (<5.7) Test 03/27/25 12:36 Erythrocyte Sedimentation Rate 48 mm/hr (0-20) Lactic Acid Level 1.0 mmol/L (0.4-2.0) Troponin I High Sensitivity 4 ng/L (</=34) C-Reactive Protein High Sensitivity 1.64 mg/dL (<1.0) B-Type Natriuretic Peptide 10.13 pg/mL (0-100) Other Laboratory Tests 03/30/25 05:31 Brief Hx & Hospital Course: 59 yo with a history of lymphedema but denies history of CHF or hypertension comes for complaints of leg pain and swelling and the inability to control the swelling in the legs came to the ED. Patient complaint of pain and swelling to the R lower extremity for X4 years. Patient reports additional R lower back pain, mild throat swelling, and a "pressure" to the R rib side. Patient has been taking Lasix for x1 year. Pt denies denies cough, chest pain, dizziness, headache, fever, chills. 03/29: Today discussed with patient to elevate the leg and end of night every night, and consider investigating into compression device and during daytime use compression socks. For now continue IV Lasix and IV antibiotics. 03/30: Patient is looking more euvolemic,. Skin now wrinkled from diuresis. No erythema in right leg to suggest cellulitis. Patient does not need any further antibiotics. Patient needs to continue and be more compliant with Lasix at home. diagnosis: # cellulitis right LE # Lymphedema # Possible Gram-positive/negative bacterial pneumonia # Chronic low back pain with bilateral sciatica # DM2 with hyperglycemia plan: -continuing Lasix 20mg daily - recommend leg compression and elevation nightly - continue any home medications not mentioned above. - follow-up with pcp to review discharge. Condition at Discharge: Fair Final Diagnosis/Problems List # cellulitis right LE # Lymphedema # Possible Gram-positive/negative bacterial pneumonia # Chronic low back pain with bilateral sciatica # DM2 with hyperglycemia Discharge Disposition: Home Discharge Instruct/Medications Scheduled Furosemide (Lasix), 1 TAB PO DAILY Metformin Hydrochloride (Metformin Hcl), 500 MG PO BID, (Reported) Yeast (S. Boulardii)(S. Cerevi (Probiotic), 250 MG PO QAM Discharge Statement: "Patient was advised to return to the ER or call 911 if any headaches, dizziness, shortness of breath, chest pain, abdominal pain, bleeding, fevers, or worsening of medical condition. Patient was counseled about treatment plan, medications, possible side effects, patientverbalized understanding. All questions were answered to the best of my ability. This discharge took greater then 30 minutes in planning, reviewing documentation, counseling the patient, and discussing with other team members." ASSESSMENT ASSESSMENT Assessment Date of Service: Mar 30, 2025 Billing Provider: WILBERT OGDEN MD Common Visit Codes: 10551-IBQ/OBS DISCH DAY >30min WILBERT OGDEN MD Mar 30, 2025 10:14
[2025-03-30] MEDS ORDERED: FURO1TAB33 PO (12:13)
[2025-03-30 13:00] VITALS: BP 119/69; PULSE 85; RESP 17; TEMP 97.9; O2SAT 98
[2025-03-30 13:01] VITALS: BP 128/68; PULSE 75; RESP 16; TEMP 36.3; O2SAT 94
== END 2025-03-30 13:55 | disposition home or self-care (01) | DRG 602 ==
LOC: ER 11:28 → OVERFLOW 17:09 → TELE-EAST 18:26 → EAST 03-28 02:39
PROVIDERS: ADMIT Student in an Organized Health Care Education/Training Program; ATTEND Student in an Organized Health Care Education/Training Program
DX: L03.115 Cellulitis of right lower limb (principal); J15.69 Pneumonia due to other Gram-negative bacteria; J15.9 Unspecified bacterial pneumonia; I89.0 Lymphedema, not elsewhere classified; I50.9 Heart failure, unspecified; E11.65 Type 2 diabetes mellitus with hyperglycemia; G89.29 Other chronic pain; M54.42 Lumbago with sciatica, left side; M54.41 Lumbago with sciatica, right side; Z90.710 Acquired absence of both cervix and uterus; Z88.1 Allergy status to other antibiotic agents; Z88.8 Allergy status to other drugs, medicaments and biological substances; Z79.899 Other long term (current) drug therapy; Z79.84 Long term (current) use of oral hypoglycemic drugs
CPT/HCPCS: 36415; 71045; 80053; 81001; 82962; 83036; 83605; 83880; 84484; 85025; 85652; 86141; 93306; 93971; 96365; 96375; G0378; J1815

== ENCOUNTER 2025-05-26 23:14 | Inpatient (IN) | payer OTHER ==
[~2025-05-26] VITALS: Ht 165.1 cm; Wt 139.0 kg
[~2025-05-26 23:14] MED LIST changes: -CLIN-203 PO; -ERGO1CAP23 PO; -LACT10SO3 PO; -LEVO500T91 PO; +METF-370 PO; -POTA-36 PO
--- NOTE | 2025-05-26 23:25 | ECG ---
[facility] Test Date: 2025-05-26 Test Time: 23:24:11 Pat Name: LETI NEW Department: [facility] ED Patient ID: [facility]-[id number] Room: 0279 Gender: F Director Center: [facility] : 1965 Requested By: KATHRYN DOW Order Number: [id number] Reading MD: Bandar Corrigan Measurements Intervals [place] Rate: 102 P: 67 ND: 189 QRS: 22 QRSD: 108 T: 59 QT: 346 QTc: 451 Interpretive Statements Sinus tachycardia Consider right atrial enlargement Electronically Signed On 06-01-2025 14:47:43 PST by Bandar Corrigan Please click the below link to view image of tracing.
[2025-05-26 23:55] LABS: Hematocrit 39.4 % (36.0-46.0); Hemoglobin 13.1 g/dL (12.2-16.2); Mean Corpuscular Hemoglobin 29.2 pg (28.0-32.0); Mean Corpuscular Volume 88.1 fL (80.0-100.0); Nucleated Red Blood Cells % 0.0 %
[2025-05-27] VITALS (8 sets, daily range): BP systolic 118–160; BP diastolic 61–90; PULSE 86–110; RESP 16–19; TEMP 97.6–101.1; O2SAT 94–98
--- NOTE | 2025-05-27 00:02 | ED.PDOC ---
HPI Comments This is a 59-year-old female with a PMH of hypertension, non-insulin dependent type 2 diabetes mellitus, right lower leg cellulitis, bilateral feet lymphedema (patient denies history of CHF), who has come with the chief complaints of chest pain. Patient reports that she has been having right and left sided sharp chest pain for the past 2 days, which has been intermittent, 6/10 in intensity, radiating to bilateral elbows, associated with severe palpitations, chills, pain in her inner thighs that go to her knees, nausea, 1 episode of vomiting 2 days ago, mild shortness of breaths and dry cough. Patient reports the pain in her chest worsened today evening, prompting her to visit the ER. She was given 81 mg aspirin in the ER, but reports it has not helped much. On initial assessment, patient is tachycardic HR 113, on examination, there is presence of bilateral lower extremity +1 pitting edema (patient reports she has not taken Lasix in the past 4-5 days as she usually does), warm, erythematous right lower extremity, with a small draining wound on the right foot (which the patient states is a healed wound that began seeping clear fluid 2 days ago.) Patient denies recent trauma, sick contacts, fever, travel history, dizziness, syncope, abdominal pain, urinary symptoms, GERD symptoms or change in bowel habits. She requires further workup and management. Chief Complaint: Chest Pain Time Seen by MD: 23:21 Primary Care Provider: OSCAR Davis Notes: Medications, Allergies Allergies: Coded Allergies: Amoxicillin (Verified Allergy, Unknown, 03/27/25) Doxycycline (Verified Allergy, Unknown, 03/27/25) Uncoded Allergies: FLU SHOT (Allergy, Unknown, 05/24/24) Home Meds Active Scripts Furosemide (Lasix) 20 Mg Tb, 1 TAB PO DAILY for 30 Days, #30 TAB 1 Refill Prov:WILBERT OGDEN MD 03/30/25 Yeast (S. Boulardii)(S. Cerevi (Probiotic) 250 Mg Cap, 250 MG PO QAM for 30 Days, #30 CAP Prov:NADINE KING MD 06/01/24 Reported Medications Metformin Hydrochloride (Metformin Hcl) 500 Mg Tab, 500 MG PO BID for 30 Days, MG 03/27/25 Information Source: Patient Mode of Arrival: Ambulatory Severity: Moderate Timing: Days Duration: Intermittent Prehospital treatment: None Location: Chest (R), Chest (L) Radiation: Arm (R), Arm (L) Quality: Sharp Onset: At Rest Cardiac Risk Factors: Smoker, Diabetes PE Risk Factors: None History of: None Modifying Factors: Nothing Associated Signs and Symptoms: SOB, Palpitations Past Medical History PAST MEDICAL HISTORY: CHF, DM, HTN Surgical History: Hysterectomy Surgical History (Other): Surgery for endometriosis [employer] History: Endometriosis Family History Family History: Reviewed,noncontributory to illness, No family hx of Cancer, No family hx of DM, No family hx of Heart zachery, No family hx of HTN, No family hx ofKidney zachery, No family hx of Liver zachery, No family hx of Lung zachery, No family hx of Stroke Social History Smoker: Cigarettes, Less Than 1 Pack/Day Alcohol: Denies ETOH Use Drugs: Denies Drug Use Lives In: Home Constitutional: reports: chills; denies: diaphoresis, fatigue, fever, malaise, sweats, weakness, others EENTM: denies: blurred vision, double vision, ear bleeding, ear discharge, ear drainage, ear pain, ear ringing, eye pain, eye redness, hearing loss, mouth pain, mouth swelling, nasal discharge, nose bleeding, nose congestion, nose pain, photophobia, tearing, throat pain, throat swelling, voice changes, others Respiratory: reports: cough (Dry); denies: hemoptysis, orthopnea, SOB at rest, shortness of breath, SOB with excertion, stridor, wheezing, others Cardiovascular: reports: Dyspnea on exertion, edema, palpitations; denies: c hest pain, dizzy spells, diaphoresis, irregular heart beat, left arm pain, lightheadedness, PND, syncope, others Gastrointestinal: denies: abdomen distended, abdominal pain, blood streaked bowels, constipated, diarrhea, dysphagia, difficulty swallowing, hematemesis, melena, nausea, poor appetite, poor fluid intake, rectal bleeding, rectal pain, vomiting, others Genitourinary: denies: abnormal vagina bleeding, burning, dyspareunia, dysuria, flank pain, frequency, hematuria, incontinence, pain, , vagina discharge, urgency, others Neurological: denies: dizziness, fainting, headache, left sided numbness, left sided weakness, numbness, paresthesia, pre-existing deficit, right sided numbness, right sided weakness, seizure, speech problems, tingling, tremors, weakness, others Musculoskeletal: denies: back pain, gout, joint pain, joint swelling, muscle pain, muscle stiffness, neck pain, others Integumetry: reports: change in color (Right lower extremity erythema, warm extremity); denies: bruises, change in hair/nails, dryness, laceration, lesions, lumps, rash, wounds, others Allergic/Immunocompromised: denies: Difficulty Healing, Frequent Infections, Hives, Itching, others Hematologic/Lymphatic: denies: anemia, blood clots, easy bleeding, easy bruising, swollen glands, others Endocrine: denies: excessive hunger, excessive sweating, excessive thirst, excessive urination, flushing, intolerance to cold, intolerance to heat, unexplained weight gain, unexplained weight loss, others Psychiatric: denies: anxiety, bipolar disorder, depression, hopeless, panic disorder, schizophrenia, sleepless, suicidal, others Physical Exam General Appearance: Obese HEENT: Other (Maintains eye contact, No JVD, no cervical lymphadenopathy, no pallor, no icterus) Neck: Normal, Normal Inspection Respiratory: No Accessory Muscle Use, No Respiratory Distress, Normal Breath Sounds Cardiovascular: No JVD, No Murmur, Tachycardia Breast Exam: Deferred Gastrointestinal: No Organomegaly, Non Tender, Normal Bowel Sounds Genitalia: Deferred Pelvic: Deferred Rectal: Deferred Extremities: Inflammation (Erythematous appearance of right lower extremity skin), Leg edema, No calf tenderness, Pedal edema (Plus one pitting up to knee), Other (presence of small wound on right feet on dorsal side, slightly draining clear fluid) Neurologic: None Cerebellar Function: Unable to Test Reflexes: Normal Skin: Other (Erythematous appearance of right lower extremity, small draining wound in dorsal side of right feet, seeping clear fluid) Lymphatic: Other (No cervical lymphadenopathy) Was a procedure done? Was a procedure done?: No CP Differential Dx Differential Diagnosis: Other Other Differential Diagnosis Cellulitis, lymphedema Differential Diagnosis: CHF Differential Diagnosis: Chest Wall Pain X-Ray, Labs, Meds, VS Vital Signs Date Time Temp Pulse Resp B/P (MAP) Pulse Ox O2 Delivery O2 Flow Rate FiO2 05/26/25 23:24 102 05/26/25 23:18 99.3 113 20 152/95 94 99.3 Lab Test 05/27/25 00:21 05/26/25 23:35 Range/Units Troponin I High Sensitivity Pending Pending White Blood Count 14.6 H 4.4-10.8 10^3/uL Red Blood Count 4.48 4.0-5.20 10^6/uL Hemoglobin 13.1 12.2-16.2 g/dL Hematocrit 39.4 36.0-46.0 % Mean Corpuscular Volume 88.1 80.0-100.0 fL Mean Corpuscular Hemoglobin 29.2 28.0-32.0 pg Mean Corpuscular Hemoglobin Concent 33.1 32.0-36.0 g/dL Red Cell Distribution Width 13.3 11.8-14.3 % Platelet Count 205 140-450 10^3/uL Mean Platelet Volume 8.5 6.9-10.8 fL Neutrophils (%) (Auto) 90.7 H 37.0-80.0 % Lymphocytes (%) (Auto) 2.6 L 10.0-50.0 % Monocytes (%) (Auto) 6.0 0.0-12.0 % Eosinophils (%) (Auto) 0.4 0.0-7.0 % Basophils (%) (Auto) 0.3 0.0-2.0 % Neutrophils # (Auto) 13.3 H 1.6-8.6 10 ^3/uL Lymphocytes # (Auto) 0.4 0.4-5.4 10 ^3/uL Monocytes # (Auto) 0.9 0-1.3 10 ^3/uL Eosinophils # (Auto) 0.1 0-0.8 10 ^3/uL Basophils # (Auto) 0 0-0.2 10 ^3/uL Nucleated Red Blood Cells 0.0 % Prothrombin Time Pending Prothrombin Time INR Pending Activated Partial Thromboplast Time Pending D-Dimer, Quantitative Pending Sodium Level 140 136-145 mmol/L Potassium Level 4.1 3.5-5.1 mmol/L Chloride Level 104 98-107 mmol/L Carbon Dioxide Level 27 20-31 mmol/L Anion Gap 9 5-15 Blood Urea Nitrogen 16 9-23 mg/dL Creatinine 0.89 0.550-1.02 mg/dL Glomerular Filtration Rate Calc 75 >90 mL/min BUN/Creatinine Ratio 18.0 10.0-20.0 Serum Glucose 138 H 74-106 mg/dL Lactic Acid Level 1.4 0.4-2.0 mmol/L Calcium Level 9.7 8.7-10.4 mg/dL Images Reviewed?: Images reviewed and evaluated by me Time of 1ST Reevaluation: 12:50 Reevaluation 1ST: Unchanged Patient Education/Counseling: Diagnosis, Treatment Family Education/Counseling: No Family Present Comments Patient came in with right lower leg erythema, swelling and extremity is warm. She also complained of chest pain. EKG showed normal sinus rhythm, heart rate 102. CBC showed high counts with a WBC 14.6. Lactic acid is normal at 1.4. BNP was within normal limits. Given her chest pain, tachycardia, right lower extremity edema and erythema, RR 20 and high WBC counts, patient requires further workup and management for cellulitis. We putting her up for inpatient management SEPSIS Sepsis Screen Date sepsis recognized/suspect: May 26, 2025 Time Sepsis recognized/suspect: 2322 Recent Procedure: No On Antibiotic Therapy: No Respiratory Rate >20: No Heart Rate >90: Yes Temp<36 C (96.8 F) or >38.3 C: No SBP <90 or MAP <65 mmHG: No New Acute Mental Status Change: No Is the patient on CPAP, BIPAP,: No Physician Orders Chest Portable (05/26/25 23:17) Troponin-I Hs (05/26/25 23:17) Troponin-I Hs (05/27/25 00:17) Troponin-I Hs (05/27/25 02:17) Electrocardigram (05/27/25 00:17) Electrocardigram (05/27/25 02:17) D-Dimer (05/26/25 23:26) PTPTT (05/26/25 23:26) Blood Culture (05/26/25 23:38) Vital Signs Date Time Temp Pulse Resp B/P (MAP) Pulse Ox O2 Delivery O2 Flow Rate FiO2 05/26/25 23:24 102 05/26/25 23:18 99.3 113 20 152/95 94 99.3 Laboratory Tests Test 05/26/25 23:35 Lactic Acid Level 1.4 mmol/L (0.4-2.0) White Blood Count 14.6 10^3/uL (4.4-10.8) H Departure 1 Departure Time of Disposition: 12:51 Impression: Primary Impression: Cellulitis Additional Impression: Lymphedema Disposition: 09 ADMITTED INPATIENT Admit to: Tele Condition: Unstable Critical Care Note Critical Care Time?: No Stability Stability form required: No Heart Score Heart Score: Heart Score Response (Comments) Value History Slightly Suspicious 0 EKG Normal 0 Age 45-64 1 Risk Factors 1 or 2 risk factors 1 Troponin Normal limit 0 Total 2 KESHA ROD RESIDENT May 27, 2025 00:02
[2025-05-27 00:07] LABS: Chloride 104 mmol/L (98-107); Potassium 4.1 mmol/L (3.5-5.1); Sodium 140 mmol/L (136-145)
[2025-05-27 00:08] LABS: Anion Gap 9 (5-15); Calcium 9.7 mg/dL (8.7-10.4); Carbon Dioxide 27 mmol/L (20-31)
[2025-05-27 00:13] LABS: BUN/Creatinine Ratio 18.0 (10.0-20.0); Blood Urea Nitrogen 16 mg/dL (9-23); Glucose 138 mg/dL (74-106)
[2025-05-27 00:50] LABS: INR 0.93 (0.9-1.15); Partial Thromboplastin Time 29.7 SEC (24.5-34.5); Prothrombin Time 9.9 sec (9.3-11.8)
--- NOTE | 2025-05-27 01:09 | DVH ---
CHEST RADIOGRAPH Indication: CHESTPAIN Technique: Single frontal view of the chest was obtained COMPARISON: XY CHEST PORTABLE on DOS: 03/29/25, XY CHEST PORTABLE on DOS: 03/27/25, XY CHEST XRAY 1 VIEW on DOS: 05/24/24 FINDINGS: Lungs and pleural spaces are clear. Cardiac silhouette and chao are within normal limits. Bones and soft tissues demonstrate no significant abnormality. IMPRESSION: No acute disease.
[2025-05-27] MEDS: SODIUM CHLORIDE 0.9% 1,000 ML IV ONE (01:30)
[2025-05-27] MEDS: ceFAZolin 1GM/50ML 50 ML IV ONE (01:30)
--- NOTE | 2025-05-27 02:17 | DVHHPRES ---
History of Present Illness Resident Creating Document: CAMRYN VALLECILLO RESIDENT History of Present Illness Fay New, 59-year-old female with previous history of [id number] type 2 diabetes mellitus, hypertension controlled with antihypertensive, recurrent cellulitis, bilateral lymphedema (no history of CHF, previous echo EF 55%) presented to the ER with the complaints of severe lower back pain, right and left-sided chest pain, sharp in nature, intermittent 6/10 in intensity, radiating to both elbows. She also reports having severe palpitations, chills, she reports having alternating cold and hot sensations. He has mild shortness of breaths, no relation with position. She has nonproductive cough.She reports having constipation since last 2 days. The patient has a ulcer on the right dorsal feet, measuring 2x2 cm, oozing yellowish fluid. She reports having right-sided leg swelling since May, that time she was diagnosed with cellulitis and was given vancomycin. Patient denies recent trauma, sick contacts, fever, travel history, dizziness, syncope, abdominal pain, urinary symptoms, GERD symptoms or change in bowel habits. The patient is tachycardic, she has leukocytosis. Past medical history: Type 2 diabetes mellitus, hypertension, history of kidney function close to stage I CKD? Past surgical history, appendectomy, oophorectomy due to large ovarian mass Smoking, alcohol, drugs: Home medications: Metformin, antihypertensive dosing 40 mg, the patient could not recall the name Allergies: No known allergies Review of Systems Allergies: Coded Allergies: Amoxicillin (Verified Allergy, Unknown, 03/27/25) Doxycycline (Verified Allergy, Unknown, 03/27/25) Uncoded Allergies: FLU SHOT (Allergy, Unknown, 05/24/24) Exam Vital Signs Vital Signs Date Time Temp Pulse Resp B/P (MAP) Pulse Ox O2 Delivery O2 Flow Rate FiO2 05/27/25 02:04 97 18 97 Room Air* 0 21 05/27/25 01:15 98.7 120/78 (92) 98.7 Exam Pt is lying on bed General Appearance: Alert, Oriented X3, Cooperative, Mild distress, red rashes over face and neck. 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 during examination Labs/Xrays Labs Test 05/27/25 00:21 05/26/25 23:35 Range/Units Troponin I High Sensitivity 5 </=34 ng/L White Blood Count 14.6 H 4.4-10.8 10^3/uL Red Blood Count 4.48 4.0-5.20 10^6/uL Hemoglobin 13.1 12.2-16.2 g/dL Hematocrit 39.4 36.0-46.0 % Mean Corpuscular Volume 88.1 80.0-100.0 fL Mean Corpuscular Hemoglobin 29.2 28.0-32.0 pg Mean Corpuscular Hemoglobin Concent 33.1 32.0-36.0 g/dL Red Cell Distribution Width 13.3 11.8-14.3 % Platelet Count 205 140-450 10^3/uL Mean Platelet Volume 8.5 6.9-10.8 fL Neutrophils (%) (Auto) 90.7 H 37.0-80.0 % Lymphocytes (%) (Auto) 2.6 L 10.0-50.0 % Monocytes (%) (Auto) 6.0 0.0-12.0 % Eosinophils (%) (Auto) 0.4 0.0-7.0 % Basophils (%) (Auto) 0.3 0.0-2.0 % Neutrophils # (Auto) 13.3 H 1.6-8.6 10 ^3/uL Lymphocytes # (Auto) 0.4 0.4-5.4 10 ^3/uL Monocytes # (Auto) 0.9 0-1.3 10 ^3/uL Eosinophils # (Auto) 0.1 0-0.8 10 ^3/uL Basophils # (Auto) 0 0-0.2 10 ^3/uL Nucleated Red Blood Cells 0.0 % Prothrombin Time 9.9 9.3-11.8 sec Prothrombin Time INR 0.93 0.9-1.15 Activated Partial Thromboplast Time 29.7 24.5-34.5 SEC D-Dimer, Quantitative 0.51 H 0.0-0.49 mg/L FEU Sodium Level 140 136-145 mmol/L Potassium Level 4.1 3.5-5.1 mmol/L Chloride Level 104 98-107 mmol/L Carbon Dioxide Level 27 20-31 mmol/L Anion Gap 9 5-15 Blood Urea Nitrogen 16 9-23 mg/dL Creatinine 0.89 0.550-1.02 mg/dL Glomerular Filtration Rate Calc 75 >90 mL/min BUN/Creatinine Ratio 18.0 10.0-20.0 Serum Glucose 138 H 74-106 mg/dL Lactic Acid Level 1.4 0.4-2.0 mmol/L Calcium Level 9.7 8.7-10.4 mg/dL SEPSIS Sepsis Screen Date sepsis recognized/suspect: May 26, 2025 Time Sepsis recognized/suspect: 2322 Recent Procedure: No On Antibiotic Therapy: No Respiratory Rate >20: No Heart Rate >90: Yes Temp<36 C (96.8 F) or >38.3 C: No SBP <90 or MAP <65 mmHG: No New Acute Mental Status Change: No Is the patient on CPAP, BIPAP,: No Physician Orders Chest Portable (05/26/25 23:17) Electrocardigram (05/27/25 00:17) Electrocardigram (05/27/25 02:17) Blood Culture (05/26/25 23:38) Vancomycin 1gm/250ml Kit (05/27/25 01:30) Sodium Chloride 0.9% (05/27/25 01:30) Vital Signs Date Time Temp Pulse Resp B/P (MAP) Pulse Ox O2 Delivery O2 Flow Rate FiO2 05/27/25 02:04 97 18 97 Room Air* 0 21 05/27/25 01:15 98.7 97 16 120/78 (92) 97 98.7 05/27/25 00:36 111 05/26/25 23:24 102 05/26/25 23:18 99.3 113 20 152/95 94 99.3 Laboratory Tests Test 05/26/25 23:35 Lactic Acid Level 1.4 mmol/L (0.4-2.0) White Blood Count 14.6 10^3/uL (4.4-10.8) H Assessment/Plan Assessment/Plan Sepsis/SIRS due to Right leg cellulitis Rule out DVT Right foot ulcer -right lower extremity ultrasound ordered -IV vancomycin and ceftriaxone ordered -wound culture and wound consulted Type 2 diabetes mellitus HbA1c 03/27/2025: 6.5 Hypertensive heart disease Possible diastolic heart failure Chest pain rule out ACS Possible musculoskeletal chest pain EKG: No ischemic changes Troponinx3 WNL Echocardiography on 03/29/25: lvef 55-60%, mild lvh, normal rv function, left atrium enlarged mild Lasix ordered History of lymphedema Follow up with the PCP outpatient Chronic Low Back pain -NSAIDs -follow up outpatient with PCP GI prophylaxis: Pantoprazole DVT prophylaxis: Lovenox Diet: Cardiac Goals of care discussed with the patient for more than 27 minutes: Full code status Case discussed with , patient and RN PATIENT: LETI NEW ACCT: [id number] UNIT: [id number] : 1965 LOC: [facility] ROOM / BED: 0244ADS / 3 AGE / SEX: 59 / F ADM STATUS: ADM IN SERVICE 1540 ORDERING PHYSICIAN: CYNTHIA CHAMPION MD PROCEDURE(s): ECIDC - ECHO 2D MODE CARDIAC DOP REASON: hf ORDER NUMBER(s): [id number], ACCESSION NUMBER(s): [id number] APPROVED REPORT EXAM: Two-dimensional and M-mode echocardiogram with Doppler and color Doppler. Blood Pressure: 149/85 mmHg INDICATION HF RISK FACTORS Height: 65, Weight: 306 DIMENSIONS LVDd 4.2 (3.8-5.7cm) LA (2D) (1.9-4.0cm) Aortic Root 3.4 (2.0- 3.7cm) LVDs 3.0 (2.5-4.0cm) LA (MM) (1.9-4.0cm) Aortic Cusp Exc 1.9 (1.5-2.0cm) EF (%) 55.0 (55-70%) Rt. Atrium (1.9-4.0cm) Asc. Aorta cm Mitral Valve Mitral Mitral Stenosis E wave 0.84m/s MV Mean GR. mmHg A wave 1.13m/s MV Peak GR. mmHg E/A ratio 0.7 2D MVA cm2 DECEL Time 218ms PRESS 1/2 Time 71ms IVRT ms Dop MVA 3.10cm2 Aortic Valve Aortic Valve Aortic Stenosis V1 1.09m/s AO Mean GR. 8mmHg V2 1.98m/s AO Peak GR. 16mmHg LVOT Diameter 2.0 (1.8-2.4cm) Doppler BRISEYDA 1.73cm2 Pulmonic Valve V2 1.24m/s Tricuspid Valve TR Velocity 2.05m/s RVSP 25mmHg Other Information Technically limited study due to body habitus. Plan discussed with: Patient, Other (RN) Date of Service: May 27, 2025 Billing Provider: NADINE KING MD Common Visit Codes: [id number] INP/OBS CARE (HIGH) Secondary Visit Codes: [id number] CARE PLAN 30 MINUTES CAMRYN VALLECILLO RESIDENT May 27, 2025 02:17
[2025-05-27] MEDS ORDERED: NITROGLYCERIN 0.4 MG SL TAB SL PRN (02:30)
[2025-05-27] MEDS: ONDANSETRON HCL 4 MG/2 ML VIAL IV ONE (02:33)
[2025-05-27] MEDS: MORPHINE SULFATE 4 MG/ML SYR/VIAL IV ONE (02:34)
[2025-05-27] MEDS: VANCOMYCIN 1GM/250ML KIT 250 ML IV ONE (02:56)
[2025-05-27] MEDS ORDERED: DEXTROSE (50%) 50ML SYRG IV PRN (03:00)
--- NOTE | 2025-05-27 03:01 | DVH ---
Right lower extremity venous duplex Clinical History: Rule out dvt Comparison: US RT LOWER DVT on DOS: 03/27/25, US BILAT LOW EXT ART DUPLEX on DOS: 05/25/24, US BILAT LOWER DVT on DOS: 05/24/24, US BILAT LOWER DVT on DOS: 11/18/23 Technique: Duplex Doppler evaluation of the deep venous system of the right lower extremity from the common femoral vein to the popliteal vein including color Doppler and spectral/pulsed waveform analysis was performed. Findings: The common femoral vein demonstrates appropriate compressibility and waveform variability. There is compressibility/patency of the great saphenous vein at the proximal thigh. The femoral vein demonstrates appropriate compressibility and waveform variability. The deep femoral vein demonstrates appropriate compressibility and waveform variability. The popliteal vein demonstrates appropriate compressibility and waveform variability. There is normal compressibility at the tibioperoneal trunk. Impression: 1. No right femoropopliteal venous thrombosis. 2. Contralateral common femoral vein is patent.
[2025-05-27 03:16] LABS: COVID19 ANTIGEN SOFIA FIA NEGATIVE (NEGATIVE)
[2025-05-27 04:02] LABS: Alanine Aminotransferase 19.0 U/L (7-40); Albumin 4.3 g/dL (3.2-4.8); Alkaline Phosphatase 81.0 U/L (46-116); Bilirubin, Direct 0.1 mg/dL (<0.3); Bilirubin, Total 0.5 mg/dL (0.2-1.0); Total Protein 7.6 g/dL (5.7-8.2)
[2025-05-27] MEDS: HYDROcodone-ACET 5/325MG TAB PO PRN (05:04)
[2025-05-27] MEDS: PANTOPRAZOLE 40 MG TAB PO SCH (06:22)
[2025-05-27] MEDS: ACCU-CHEK COMFORT CURVE STRIP VI SCH (06:48)
[2025-05-27] MEDS: InsuLIN REG 1unit/0.01ml Soln (100units/ml) SC SCH (06:48)
[2025-05-27 07:24] LABS: Urine Amorphous Crystal FEW /hpf (None Seen); Urine Protein, UAD TRACE (Negative)
[2025-05-27 07:37] LABS: Amphetamine Screen, Urine Neg (NEGATIVE); Barbiturate Scree,Urine Neg (NEGATIVE); Benzodiazephine Screen, Urine Neg (NEGATIVE); Cannabinoid Screen, Urine Neg (NEGATIVE); Cocaine Screen, Urine Neg (NEGATIVE); Opiate Scree,Urine Pos (NEGATIVE); Phencyclidine Screen, Urine Neg (NEGATIVE)
[2025-05-27] MEDS ORDERED: VANCOMYCIN PER PHARMACY 0 MG IV SCH (09:00)
[2025-05-27] MEDS ORDERED: VANCOMYCIN 1GM/250ML KIT 250 ML IV SCH (10:00)
[2025-05-27] MEDS: FUROSEMIDE 20 MG TAB PO SCH (10:24)
[2025-05-27] MEDS: ENOXAPARIN SOD 40 MG/0.4 ML SYRINGE SC SCH (10:25)
[2025-05-27] MEDS: SPIRONOLACTONE 25 MG TAB PO ONE (11:42)
[2025-05-27] MEDS: FUROSEMIDE 20 MG TAB PO ONE (11:42)
[2025-05-27] MEDS: VANCOMYCIN 1.5GM/250ML 250 ML IV SCH (14:05)
--- NOTE | 2025-05-27 14:56 | DVHPNRES ---
Progress Note Date Seen: May 27, 2025 Resident Creating Document: CHRIS TAY RESIDENT Medical Necessity Reason Pt with a Central, PICC or Fol: No Subjective Review of Systems Elsy Acosta is a 59-year-old female with past medical history of type 2 diabetes mellitus, hypertension, recurrent cellulitis, bilateral lymphedema, endometriosis, coronary artery disease, chronic kidney disease presented with complaints of vomiting, chest pain, pain in bilateral lower limbs and elbows. Patient says that the pain has been associated with chills, shortness of breath. She also complains of issues with her balance and posture. patient states that she has been having the right-sided leg swelling since May, she was diagnosed with cellulitis and was given vancomycin as per patient. Patient denies recent trauma, sick contacts, fever, travel history, syncope, urinary symptoms. PMHx:type 2 diabetes mellitus, hypertension, recurrent cellulitis, bilateral lymphedema, endometriosis, coronary artery disease, chronic kidney disease PSHx: Appendectomy, oophorectomy Social history: 20 pack year smoking history, denies alcohol or drug use Home medication: metformin 500 mg once daily Allergic history: amoxicillin, doxycycline, flu shot General: patient denies fever, fatigue, weakness, sweating, any recent changes in appetite and weight HEENT: No headaches, visual changes, hearing loss, tinnitus, nasal congestion and discharge, and sore throat. Cardiovascular: Denies chest pain, palpitations, dyspnea on exertion, orthopnea, or claudication. Respiratory: No cough, and wheezing. Gastrointestinal: Denies nausea, dysphagia, odynophagia, heartburn, abdominal pain, flatulence, bloating, diarrhea, change in stool, or blood in stool. c omplains of vomiting Genitourinary: No dysuria, hematuria, discharge, frequency, urgency, nocturia, incontinence, and urinary retention. Endocrine: No heat or cold intolerance, polydipsia, polyuria, and polyphagia. Neurological: No dizziness, extremity weakness and numbness, tremors, gait disturbance, seizures, and memory impairment. Psychiatric: Denies depression, anxiety,or insomnia. Musculoskeletal: Complains of pain in elbow, bilateral lower limbs Skin: No rashes, itching, skin lesion, changes in hair, nail, skin texture and breast. Hematologic/Lymphatic: Denies easy bruising, bleeding tendencies, or lymph node enlargement. Objective vital signs Vital Sign Date Time Temp Pulse Resp B/P (MAP) Pulse Ox O2 Delivery O2 Flow Rate FiO2 05/27/25 11:42 162/86 05/27/25 09:00 99.7 100 18 96 99.7 05/27/25 05:03 Room Air* 0 21 Total Intake and Output 05/26/25 05/26/25 05/27/25 15:00 23:00 07:00 Intake Total 1300 ml Balance 1300 ml medications Current Medications Medications Dose Ordered Sig/Lyudmila Route Start Time Stop Time Status Last Admin Dose Admin Acetaminophen/ Hydrocodone Bitart 1 tab Q4HP PRN PO 05/27/25 02:30 05/27/25 11:36 1 TAB Enoxaparin Sodium 40 mg DAILY SC 05/27/25 10:00 05/27/25 10:25 40 MG Nitroglycerin 0.4 mg Q5MINP PRN SL 05/27/25 02:30 Vancomycin HCl 250 ml @ 250 mls/hr DAILY IV 05/27/25 10:00 UNV Ceftriaxone Sodium 50 ml @ 100 mls/hr DAILY@09 IV 05/27/25 09:00 05/27/25 10:27 100 MLS/HR Diagnostic Test (Pha) 1 strip ACHS 05/27/25 07:00 05/27/25 11:47 1 STRIP Insulin Human Regular ACHS SC 05/27/25 07:00 05/27/25 06:48 3 UNITS Dextrose 50 ml UD PRN IV 05/27/25 03:00 Pantoprazole Sodium 40 mg DAILY@0600 PO 05/27/25 06:00 05/27/25 06:22 40 MG Vancomycin HCl 0 ml @ 0 mls/hr PER PHARMACY IV 05/27/25 09:00 Furosemide 40 mg BIDD PO 05/27/25 18:00 Spironolactone 25 mg DAILY PO 05/28/25 10:00 Vancomycin HCl 250 ml @ 166.667 mls/hr Q12H IV 05/27/25 14:00 05/27/25 14:05 166.667 MLS/HR Examination General Appearance: Alert, Oriented X3, Cooperative, mild distress HEENT: Atraumatic, PERRLA, EOMI, Mucous membrane moist/pink Respiratory: Clear to auscultation, Normal air movement Cardiovascular: Regular rate, Normal S1, Normal S2, No murmurs, right chest wall tenderness present Abdominal: Normal bowel sounds, Soft, No tenderness, No hepatospenomegaly, No masses Extremities: tenderness in bilateral elbows, nonpitting edema of bilateral lower limbs,2X2 ulcer in the right foot present on admission, erythema in the right distal lower limb Skin: Plaque psoriasis in bilateral lower limbs and knuckles Neuro: Normal gait, Normal speech, Strength at 5/5 X4 ext, Normal tone, Sensation intact, Cranial nerves 3-12 NL, Reflexes 2+ Psych/Mental Status: Mental status NL, Mood NL laboratory and microbiology Laboratory Tests 05/26/25 23:35 Test 05/26/25 23:35 Range/Units Serum Glucose 138 H 74-106 mg/dL Labs and/or images reviewed: Labs reviewed by me, Image(s) reviewed by me Problem List/Assessment/Plan Problem List/Assessment/Plan Assessment and plan Sepsis/SIRS due to Right leg cellulitis Ruled out DVT Right foot ulcer, POA chronic venous insufficiency right lower extremity ultrasound negative for DVT IV vancomycin and ceftriaxone ordered wound culture and wound consult Lasix and spironolactone right foot x-ray PT eval leg elevation obesity, grade 3 Counseled on the importance of exercise and diet for 15 minutes Type 2 diabetes mellitus HbA1c 03/27/2025: 6.5 Hypertensive heart disease with diastolic and systolic heart failure; not in exacerbation Chest pain ruled out ACS past history of CAD Possible musculoskeletal chest pain EKG: No ischemic changes Troponinx3 WNL Echocardiography on 03/29/25: lvef 55-60%, mild lvh, normal rv function, left atrium enlarged mild Lasix ordered CKD, stage II Monitor renal function fluid restriction Avoid nephrotoxic agents History of lymphedema Follow up with the PCP outpatient Chronic Low Back pain NSAIDs follow up outpatient with PCP history of endometriosis and smoking tobacco Follow up with PCP on discharge Counseled for 16 minutes on tobacco use cessation GI prophylaxis: Pantoprazole DVT prophylaxis: Lovenox Diet: Cardiac Goals of care discussed with the patient for 20 minutes: Full code status Case discussed with Plan discussed with: Patient, Other (RN) My Orders My Orders Orders - CHRIS TAY RESIDENT Procedure Category Date Status Time Vancomycin Per PHA 05/27/25 In Process Pharmacy 09:00 Pt Request For Service PT 05/27/25 Transmitted 10:52 Vancomycin PHA 11/27/25 In Process 1.5gm/250ml 14:00 Vancomycin,Trough LAB 05/29/25 Verified 01:00 Vancomycin Per LESLEY 05/27/25 In Process Pharmacy Protoc 11:10 Communication Order ORDERS 05/27/25 Transmitted 14:31 R Foot 2 View Xray XY 05/27/25 Logged 14:33 Date of Service: May 27, 2025 Billing Provider: RODDY BUSTILLOS MD Common Visit Codes: [id number] INP/OBS CARE(HIGH) Secondary Visit Codes: [id number] CHNG SMOKING >10MIN (16 minutes), 39346- ADVANCED CARE PLAN 30 MINUTES (20 minutes) CHRIS TAY RESIDENT May 27, 2025 14:56 RODDY BUSTILLOS MD May 31, 2025 13:38
[2025-05-27] MEDS ORDERED: ACETAMINOPHEN 325 MG TAB PO PRN (16:30)
[2025-05-27] MEDS ORDERED: LISINOPRIL 5 MG TAB PO SCH (16:30)
[2025-05-27] MEDS: ACETAMINOPHEN 325 MG TAB PO PRN (16:55)
--- NOTE | 2025-05-27 17:09 | DVH ---
EXAM: XY R FOOT 2 VIEW XRAY CLINICAL INDICATION: right foot osteomylitis TECHNIQUE: XY R FOOT 2 VIEW XRAY Comparison: None FINDINGS/IMPRESSION: There is no evidence of acute fracture or dislocation. The visualized joint space is well maintained. The alignment is anatomical. Diffuse soft tissue swelling. No radiographic evidence for osteomyelitis
[2025-05-27] MEDS: FUROSEMIDE 40 MG TAB PO SCH (17:42)
[2025-05-28] VITALS (8 sets, daily range): BP systolic 112–141; BP diastolic 61–86; PULSE 78–94; RESP 18–21; TEMP 97.7–98.5; O2SAT 91–98
[2025-05-28 07:13] LABS: Hematocrit 37.3 % (36.0-46.0); Hemoglobin 12.5 g/dL (12.2-16.2); Mean Corpuscular Hemoglobin 30.2 pg (28.0-32.0); Mean Corpuscular Volume 89.8 fL (80.0-100.0)
[2025-05-28 07:29] LABS: Alanine Aminotransferase 19 U/L (7-40); Albumin 3.7 g/dL (3.2-4.8); Alkaline Phosphatase 70 U/L (46-116); Anion Gap 9 (5-15); BUN/Creatinine Ratio 13.0 (10.0-20.0); Blood Urea Nitrogen 13 mg/dL (9-23); Calcium 9.4 mg/dL (8.7-10.4); Carbon Dioxide 29 mmol/L (20-31); Chloride 102 mmol/L (98-107); Potassium 3.5 mmol/L (3.5-5.1); Sodium 140 mmol/L (136-145); Total Protein 6.7 g/dL (5.7-8.2)
[2025-05-28 07:30] LABS: Bilirubin, Total 0.4 mg/dL (0.2-1.0)
[2025-05-28 07:37] LABS: Glucose 133 mg/dL (74-106)
[2025-05-28 08:08] LABS: Total Cells Counted 100.0 (100)
[2025-05-28 08:09] LABS: RBC Morphology Normal
[2025-05-28] MEDS: SACUBITRIL-VALSARTAN 24mg/26mg TAB PO SCH (10:00)
[2025-05-28] MEDS: SPIRONOLACTONE 25 MG TAB PO SCH (11:56)
--- NOTE | 2025-05-28 15:50 | DVHPNRES ---
Progress Note Date Seen: May 28, 2025 Resident Creating Document: CHRIS TAY Medical Necessity Reason Pt with a Central, PICC or Fol: No Subjective Review of Systems Patient seen at bedside. Reports that the pain has come down. Area of erythema and swelling in the leg has reduced. Leukocytosis resolving. Objective vital signs Vital Sign Date Time Temp Pulse Resp B/P (MAP) Pulse Ox O2 Delivery O2 Flow Rate FiO2 05/28/25 13:00 98.0 84 18 141/86 (104) 96 98.0 05/27/25 20:00 Room Air* 0 21 Total Intake and Output 05/27/25 05/27/25 05/28/25 15:00 23:00 07:00 Intake Total 650 ml 1410 ml 850 ml Output Total 600 ml Balance 650 ml 810 ml 850 ml medications Current Medications Medications Dose Ordered Sig/Lyudmila Route Start Time Stop Time Status Last Admin Dose Admin Acetaminophen/ Hydrocodone Bitart 1 tab Q4HP PRN PO 05/27/25 02:30 05/28/25 00:38 1 TAB Enoxaparin Sodium 40 mg DAILY SC 05/27/25 10:00 05/28/25 11:55 40 MG Nitroglycerin 0.4 mg Q5MINP PRN SL 05/27/25 02:30 Vancomycin HCl 250 ml @ 250 mls/hr DAILY IV 05/27/25 10:00 UNV Ceftriaxone Sodium 50 ml @ 100 mls/hr DAILY@09 IV 05/27/25 09:00 05/28/25 11:49 100 MLS/HR Diagnostic Test (Pha) 1 strip ACHS 05/27/25 07:00 05/28/25 11:30 1 STRIP Insulin Human Regular ACHS SC 05/27/25 07:00 05/28/25 11:30 2 UNITS Dextrose 50 ml UD PRN IV 05/27/25 03:00 Pantoprazole Sodium 40 mg DAILY@0600 PO 05/27/25 06:00 05/28/25 05:05 40 MG Vancomycin HCl 0 ml @ 0 mls/hr PER PHARMACY IV 05/27/25 09:00 Furosemide 40 mg BIDD PO 05/27/25 18:00 05/28/25 05:05 40 MG Spironolactone 25 mg DAILY PO 05/28/25 10:00 05/28/25 11:56 25 MG Vancomycin HCl 250 ml @ 166.667 mls/hr Q12H IV 05/27/25 14:00 05/28/25 14:35 166.667 MLS/HR Sacubitril/ Valsartan 1 tab BID PO 05/28/25 10:00 05/28/25 10:00 1 TAB Acetaminophen 650 mg Q6HP PRN PO 05/27/25 16:45 05/27/25 16:55 650 MG Hydralazine HCl 10 mg Q6HP PRN PO 05/27/25 17:15 Examination General Appearance: Alert, Oriented X3, Cooperative, mild distress HEENT: Atraumatic, PERRLA, EOMI, Mucous membrane moist/pink Respiratory: Clear to auscultation, Normal air movement Cardiovascular: Regular rate, Normal S1, Normal S2, No murmurs, right chest wall tenderness present Abdominal: Normal bowel sounds, Soft, No tenderness, No hepatosplenomegaly, No masses Extremities: tenderness in bilateral elbows, nonpitting edema of bilateral lower limbs, 2X2 ulcer in the right foot present on admission, erythema in the right distal lower limb Skin: Plaque psoriasis in bilateral lower limbs and knuckles Neuro: Normal gait, Normal speech, Strength at 5/5 X4 ext, Normal tone, Sensation intact, Cranial nerves 3-12 NL, Reflexes 2+ Psych/Mental Status: Mental status NL, Mood NL laboratory and microbiology Laboratory Tests 05/28/25 06:00 Test 05/28/25 06:00 Range/Units Serum Glucose 133 H 74-106 mg/dL Microbiology Date/Time Source Procedure Growth Status 05/27/25 00:21 Blood Blood Culture - Preliminary NO GROWTH AFTER 24 HOURS OF INCUBATION. Resulted Labs and/or images reviewed: Labs reviewed by me, Image(s) reviewed by me Problem List/Assessment/Plan Problem List/Assessment/Plan Assessment and plan Sepsis/SIRS due to Right leg cellulitis Ruled out DVT Right foot ulcer, POA chronic venous insufficiency right lower extremity ultrasound negative for DVT IV vancomycin and ceftriaxone ordered wound culture and wound consult Lasix and spironolactone right foot x-ray: Diffuse soft tissue swelling with no osteomyelitis PT eval leg elevation obesity, grade 3 Counseled on the importance of exercise and diet for 15 minutes Type 2 diabetes mellitus HbA1c 03/27/2025: 6.5 Follow blood glucose levels Target in-hospital blood glucose below 180 Hypertensive heart disease Possible diastolic heart failure Chest pain ruled out ACS past history of CAD Possible musculoskeletal chest pain EKG: No ischemic changes Troponinx3 WNL Echocardiography on 03/29/25: lvef 55-60%, mild lvh, normal rv function, left atrium enlarged mild Lasix ordered CKD, stage II Monitor renal function fluid restriction Avoid nephrotoxic agents History of lymphedema Follow up with the PCP outpatient Chronic Low Back pain NSAIDs follow up outpatient with PCP history of endometriosis and tobacco smoking Follow up with PCP on discharge; counseled on tobacco use GI prophylaxis: Pantoprazole DVT prophylaxis: Lovenox Diet: Cardiac Goals of care discussed: Full code status Case discussed with Plan discussed with: Patient, Other (RN) My Orders My Orders Orders - CHRIS TAY Procedure Category Date Status Time Cover Wound With Dry LESLEY 05/27/25 In Process Dressing 16:15 Acetaminophen Tablet PHA 05/27/25 In Process (Tylenol Tablet) 16:45 Sacubitril-Valsartan PHA 05/28/25 In Process (Entresto 24-26 Mg 10:00 Creatinine LAB 05/29/25 Verified 04:00 Complete Blood Count LAB 05/29/25 Verified 04:00 Date of Service: May 28, 2025 Billing Provider: RODDY BUSTILLOS MD Common Visit Codes: [id number] INP/OBS CARE(HIGH) CHRIS TAY RESIDENT May 28, 2025 15:50 RODDY BUSTILLOS MD May 31, 2025 13:39
[2025-05-29] VITALS (8 sets, daily range): BP systolic 135–161; BP diastolic 74–106; PULSE 72–89; RESP 17–21; TEMP 97.1–97.9; O2SAT 94–96
[2025-05-29 01:07] LABS: Hematocrit 39.7 % (36.0-46.0); Hemoglobin 13.2 g/dL (12.2-16.2); Mean Corpuscular Hemoglobin 29.5 pg (28.0-32.0); Mean Corpuscular Volume 88.4 fL (80.0-100.0); Nucleated Red Blood Cells % 0.0 %
--- NOTE | 2025-05-29 11:49 | DVHPNRES ---
Progress Note Date Seen: May 29, 2025 Resident Creating Document: STEPHAN MUÑOZ RESDIENT Medical Necessity Reason Pt with a Central, PICC or Fol: No Subjective Review of Systems On 05/29, the patient seen and examined at the bedside. Patient is feeling better since admission but still complaining right lower limb discomfort. Objective vital signs Vital Sign Date Time Temp Pulse Resp B/P (MAP) Pulse Ox O2 Delivery O2 Flow Rate FiO2 05/29/25 09:00 97.3 89 19 135/94 (108) 95 97.3 05/29/25 08:00 Room Air* 0 21 Total Intake and Output 05/28/25 05/28/25 05/29/25 15:00 23:00 07:00 Intake Total 490 ml 1410 ml 924 ml Output Total 1825 ml Balance 490 ml -415 ml 924 ml medications Current Medications Medications Dose Ordered Sig/Lyudmila Route Start Time Stop Time Status Last Admin Dose Admin Acetaminophen/ Hydrocodone Bitart 1 tab Q4HP PRN PO 05/27/25 02:30 05/28/25 16:03 1 TAB Enoxaparin Sodium 40 mg DAILY SC 05/27/25 10:00 05/29/25 09:06 40 MG Nitroglycerin 0.4 mg Q5MINP PRN SL 05/27/25 02:30 Vancomycin HCl 250 ml @ 250 mls/hr DAILY IV 05/27/25 10:00 UNV Ceftriaxone Sodium 50 ml @ 100 mls/hr DAILY@09 IV 05/27/25 09:00 05/29/25 08:57 100 MLS/HR Diagnostic Test (Pha) 1 strip ACHS 05/27/25 07:00 05/29/25 06:05 1 STRIP Insulin Human Regular ACHS SC 05/27/25 07:00 05/29/25 06:05 3 UNITS Dextrose 50 ml UD PRN IV 05/27/25 03:00 Pantoprazole Sodium 40 mg DAILY@0600 PO 05/27/25 06:00 05/29/25 06:03 40 MG Vancomycin HCl 0 ml @ 0 mls/hr PER PHARMACY IV 05/27/25 09:00 Furosemide 40 mg BIDD PO 05/27/25 18:00 05/29/25 06:03 40 MG Spironolactone 25 mg DAILY PO 05/28/25 10:00 05/29/25 09:04 25 MG Vancomycin HCl 250 ml @ 166.667 mls/hr Q12H IV 05/27/25 14:00 05/29/25 02:00 166.667 MLS/HR Sacubitril/ Valsartan 1 tab BID PO 05/28/25 10:00 05/29/25 09:05 1 TAB Acetaminophen 650 mg Q6HP PRN PO 05/27/25 16:45 05/27/25 16:55 650 MG Hydralazine HCl 10 mg Q6HP PRN PO 05/27/25 17:15 Examination General Appearance: Alert, Oriented X3, Cooperative, mild distress HEENT: Atraumatic, PERRLA, EOMI, Mucous membrane moist/pink Respiratory: Clear to auscultation, Normal air movement Cardiovascular: Regular rate, Normal S1, Normal S2, No murmurs, right chest wall tenderness present Abdominal: Normal bowel sounds, Soft, No tenderness, No hepatospenomegaly, No masses Extremities: tenderness in bilateral elbows, nonpitting edema of bilateral lower limbs, 2X2 ulcer in the right foot present on admission, erythema in the right distal lower limb Skin: Plaque psoriasis in bilateral lower limbs and knuckles Neuro: Normal gait, Normal speech, Strength at 5/5 X4 ext, Normal tone, Sensation intact, Cranial nerves 3-12 NL, Reflexes 2+ Psych/Mental Status: Mental status NL, Mood NL laboratory and microbiology Laboratory Tests 05/29/25 00:55 05/28/25 06:00 Test 05/28/25 06:00 Range/Units Serum Glucose 133 H 74-106 mg/dL Microbiology Date/Time Source Procedure Growth Status 05/27/25 00:21 Blood Blood Culture - Preliminary NO GROWTH AFTER 48 HOURS OF INCUBATION. Resulted Labs and/or images reviewed: Labs reviewed by me, Image(s) reviewed by me Problem List/Assessment/Plan Problem List/Assessment/Plan Sepsis/SIRS due to Right leg cellulitis Ruled out DVT Right foot ulcer, POA chronic venous insufficiency right lower extremity ultrasound negative for DVT IV vancomycin and ceftriaxone ordered wound culture and wound consult Lasix and spironolactone right foot x-ray: Diffuse soft tissue swelling with no osteomyelitis PT eval leg elevation obesity, grade 3 Counseled on the importance of exercise and diet for 15 minutes Type 2 diabetes mellitus HbA1c 03/27/2025: 6.5 Follow blood glucose levels Target in-hospital blood glucose below 180 Hypertensive heart disease Possible diastolic heart failure Chest pain ruled out ACS past history of CAD Possible musculoskeletal chest pain EKG: No ischemic changes Troponinx3 WNL Echocardiography on 03/29/25: lvef 55-60%, mild lvh, normal rv function, left atrium enlarged mild Lasix ordered CKD, stage II Monitor renal function fluid restriction Avoid nephrotoxic agents History of lymphedema Follow up with the PCP outpatient Chronic Low Back pain NSAIDs follow up outpatient with PCP history of endometriosis and tobacco use Follow up with PCP on discharge; counseled tobacco use cessation GI prophylaxis: Pantoprazole DVT prophylaxis: Lovenox Diet: Cardiac Goals of care discussed: Full code status Case discussed with Plan discussed with: Patient, Other (RN) Date of Service: May 29, 2025 Billing Provider: STEPHAN MUÑOZ Common Visit Codes: [id number] INP/OBS CARE(HIGH) STEPHAN MUÑOZ May 29, 2025 11:49 RODDY BUSTILLOS MD May 31, 2025 13:40
[2025-05-29] MEDS: VANCOMYCIN 1.5GM/250ML 250 ML IV SCH (16:00)
[2025-05-30 01:00] VITALS: BP 116/72; PULSE 83; RESP 21; TEMP 97; O2SAT 95
[2025-05-30 05:03] VITALS: BP 128/72; PULSE 75; RESP 19; TEMP 97; O2SAT 95
[2025-05-30 05:46] LABS: Hematocrit 40.4 % (36.0-46.0); Hemoglobin 13.4 g/dL (12.2-16.2); Mean Corpuscular Hemoglobin 29.1 pg (28.0-32.0); Mean Corpuscular Volume 87.6 fL (80.0-100.0); Nucleated Red Blood Cells % 0.1 %
[2025-05-30 06:00] LABS: Alanine Aminotransferase 18 U/L (7-40); Alkaline Phosphatase 69 U/L (46-116); Anion Gap 10 (5-15); BUN/Creatinine Ratio 17.3 (10.0-20.0); Blood Urea Nitrogen 17 mg/dL (9-23); Calcium 9.3 mg/dL (8.7-10.4); Carbon Dioxide 29 mmol/L (20-31); Chloride 100 mmol/L (98-107); Potassium 3.8 mmol/L (3.5-5.1); Sodium 139 mmol/L (136-145); Total Protein 7.0 g/dL (5.7-8.2)
[2025-05-30 06:01] LABS: Albumin 3.9 g/dL (3.2-4.8); Bilirubin, Total 0.4 mg/dL (0.2-1.0)
[2025-05-30 06:04] LABS: Glucose 170 mg/dL (74-106)
[2025-05-30 08:00] VITALS: PULSE 83; RESP 17; O2SAT 95
[2025-05-30 08:52] VITALS: BP 131/70; PULSE 83; RESP 17; TEMP 97.3; O2SAT 95
[2025-05-30] MEDS ORDERED: CLIN1CAP70 PO (11:28)
[2025-05-30] MEDS ORDERED: SPIR25TA PO (11:28)
[2025-05-30] MEDS ORDERED: SACU1TAB PO (11:28)
[2025-05-30] MEDS ORDERED: BACDST PO (11:28)
[2025-05-30 13:00] VITALS: BP 127/77; PULSE 72; RESP 17; TEMP 98; O2SAT 94
[2025-05-30 13:14] VITALS: BP 130/79
--- NOTE | 2025-05-30 14:17 | DVHDSRES ---
Discharge Summary Date of Admission Resident Creating Document: CHRIS TAY RESIDENT May 27, 2025 at 02:17 Date of Discharge: May 30, 2025 Admitting Diagnosis Right lower extremity swelling with redness and pain Labs/Diagnostic Data: Laboratory Results Test 05/30/25 12:12 05/30/25 05:04 05/29/25 00:55 05/28/25 06:00 POC Glucose 159 mg/dl (70-106) White Blood Count 4.1 10^3/uL (4.4-10.8) Red Blood Count 4.61 10^6/uL (4.0-5.20) Hemoglobin 13.4 g/dL (12.2-16.2) Hematocrit 40.4 % (36.0-46.0) Mean Corpuscular Volume 87.6 fL (80.0-100.0) Mean Corpuscular Hemoglobin 29.1 pg (28.0-32.0) Mean Corpuscular Hemoglobin Concent 33.2 g/dL (32.0-36.0) Red Cell Distribution Width 13.6 % (11.8-14.3) Platelet Count 202 10^3/uL (140-450) Mean Platelet Volume 8.4 fL (6.9-10.8) Neutrophils (%) (Auto) 58.8 % (37.0-80.0) Lymphocytes (%) (Auto) 22.6 % (10.0-50.0) Monocytes (%) (Auto) 12.2 % (0.0-12.0) Eosinophils (%) (Auto) 5.3 % (0.0-7.0) Basophils (%) (Auto) 1.1 % (0.0-2.0) Neutrophils # (Auto) 2.4 10 ^3/uL (1.6-8.6) Lymphocytes # (Auto) 0.9 10 ^3/uL (0.4-5.4) Monocytes # (Auto) 0.5 10 ^3/uL (0-1.3) Eosinophils # (Auto) 0.2 10 ^3/uL (0-0.8) Basophils # (Auto) 0 10 ^3/uL (0-0.2) Nucleated Red Blood Cells 0.1 % Sodium Level 139 mmol/L (136-145) Potassium Level 3.8 mmol/L (3.5-5.1) Chloride Level 100 mmol/L (98-107) Carbon Dioxide Level 29 mmol/L (20-31) Anion Gap 10 (5-15) Blood Urea Nitrogen 17 mg/dL (9-23) Creatinine 0.98 mg/dL (0.550-1.02) Glomerular Filtration Rate Calc 66 mL/min (>90) BUN/Creatinine Ratio 17.3 (10.0-20.0) Serum Glucose 170 mg/dL (74-106) Calcium Level 9.3 mg/dL (8.7-10.4) Total Bilirubin 0.4 mg/dL (0.2-1.0) Aspartate Amino Transferase (AST) 16 U/L (13-40) Alanine Aminotransferase (ALT) 18 U/L (7-40) Alkaline Phosphatase 69 U/L (46-116) Total Protein 7.0 g/dL (5.7-8.2) Albumin 3.9 g/dL (3.2-4.8) Vancomycin Level Trough 17.7 ug/mL (5-10) Differential Total Cells Counted 100.0 (100) Neutrophils % (Manual) 68 (37.0-80.0) Band Neutrophils % (Manual) 2 Lymphocytes % (Manual) 12 (10.0-50.0) Monocytes % (Manual) 16 (0-12) Eosinophils % (Manual) 2 (0-7) Basophils % (Manual) 0 (0.0-2.0) Metamyelocytes % (manual) 0 Myelocytes % (Manual) 0 Promyelocytes % (Manual) 0 Blast Cells % (Manual) 0 Reactive Lymphocytes 0 Platelet Estimate Adequate Red Blood Cell Morphology Normal Test 05/27/25 11:31 05/27/25 10:00 05/27/25 06:30 05/27/25 02:41 B-Type Natriuretic Peptide 90.59 pg/mL (0-100) Random Vancomycin Level 4.6 ug/mL (5-10) Urine Color Yellow (Yellow) Urine Clarity Hazy (Clear) Urine pH 5.5 (5.0-9.0) Urine Specific [place] 1.032 (1.001-1.035) Urine Protein Trace (Negative) Urine Ketones Trace (Negative) Urine Blood Negative /uL (Negative) Urine Nitrite Negative (Negative) Urine Bilirubin Negative (Negative) Urine Urobilinogen Normal mg/dL (Negative) Urine Leukocyte Esterase Negative /uL (Negative) Urine RBC 1 /hpf (0 - 4) Urine Microscopic WBC 4 /HPF (0-5) Urine Squamous Epithelial Cells Few /hpf (<5) Urine Amorphous Crystals Few /hpf (None Seen) Urine Bacteria Few /hpf (None Seen) Urine Glucose Normal mg/dL (Normal) Urine Opiates Screen Pos (NEGATIVE) Urine Fentanyl Screen Neg (NEGATIVE) Urine Barbiturates Screen Neg (NEGATIVE) Urine Phencyclidine Screen Neg (NEGATIVE) Urine Amphetamines Screen Neg (NEGATIVE) Urine Benzodiazepines Screen Neg (NEGATIVE) Urine Cocaine Screen Neg (NEGATIVE) Urine Cannabinoids Screen Neg (NEGATIVE) Influenza Type A Antigen Negative (Negative) Influenza Type B Antigen Negative (Negative) SARS-CoV-2 Antigen (Rapid) Negative (NEGATIVE) Test 05/27/25 00:21 05/26/25 23:35 Direct Bilirubin 0.1 mg/dL (<0.3) Troponin I High Sensitivity 5 ng/L (</=34) Prothrombin Time 9.9 sec (9.3-11.8) Prothrombin Time INR 0.93 (0.9-1.15) Activated Partial Thromboplast Time 29.7 SEC (24.5-34.5) D-Dimer, Quantitative 0.51 mg/L FEU (0.0-0.49) Hemoglobin A1c 6.9 % A1C (<5.7) Lactic Acid Level 1.4 mmol/L (0.4-2.0) Other Laboratory Tests 05/30/25 05:04 Brief Hx & Hospital Course: Elsy Acosta is a 59-year-old female with past medical history of type 2 diabetes mellitus, hypertension, recurrent cellulitis, bilateral lymphedema, endometriosis, psoriasis, coronary artery disease, chronic kidney disease presented with complaints of vomiting, chest pain, pain in bilateral lower limbs and elbows. Patient said that the pain has been associated with chills, shortness of breath. She also complained of issues with her balance and posture. patient stated that she has been having the right-sided leg swelling since May, she was diagnosed with cellulitis and was given vancomycin as per patient. Patient denied recent trauma, sick contacts, fever, travel history, syncope, urinary symptoms.Labs revealed leukocytosis, hyperglycemia. X-ray right foot showed no signs of osteomyelitis. Venous ultrasound was negative for DVT; she was treated with IV antibiotics, diuretics and antihypertensives. During the course of the hospitalization, the patient improved clinically and is hence being discharged. Discharged on oral antibiotics Physical examination at discharge: General Appearance: Alert, Oriented X3, Cooperative, no distress HEENT: Atraumatic, PERRLA, EOMI, Mucous membrane moist/pink Respiratory: Clear to auscultation, Normal air movement Cardiovascular: Regular rate, Normal S1, Normal S2, No murmurs, no chest wall tenderness Abdominal: Normal bowel sounds, Soft, No tenderness, No hepatosplenomegaly, No masses Extremities: nonpitting edema of bilateral lower limbs- reduced from admission,2X2 ulcer in the right foot present on admission Skin: Plaque psoriasis in bilateral lower limbs, elbows and knuckles Neuro: Normal gait, Normal speech, Strength at 5/5 X4 ext, Normal tone, Sensation intact, Cranial nerves 3-12 NL, Reflexes 2+ Psych/Mental Status: Mental status NL, Mood NL Discussed with Dr. Bustillos Condition at Discharge: Stable Final Diagnosis/Problems List Sepsis due to below Right leg cellulitis Right foot ulcer, POA chronic venous insufficiency Ruled out DVT Hypertensive heart disease Acute on chronic diastolic heart failure Chest pain ruled out ACS past history of CAD CKD, stage II plaque psoriasis obesity, grade 3 Type 2 diabetes mellitus Chronic Low Back pain, musculoskeletal Chronic lymphedema history of endometriosis and tobacco smoke Discharge Disposition: Home Discharge Instruct/Medications Diet: Consistent carbohydrate Activity: No Restrictions, As Tolerated Follow Up/Referral: F/u with PCP in 7 days F/u with DC clinic in 7 days Medications: as per EHR Scheduled Clindamycin Hcl (Clindamycin Hcl), 300 MG PO QID Furosemide (Lasix), 1 TAB PO DAILY Metformin Hydrochloride (Metformin Hcl), 500 MG PO BID, (Reported) Sacubitril-Valsartan (Entresto 24-26 mg), 1 TAB PO BID Spironolactone (Aldactone), 25 MG PO DAILY Sulfamethoxazole W/Trimethopri (Bactrim Ds Tablet), 1 TAB PO BID Yeast (S. Boulardii)(S. Cerevi (Probiotic), 250 MG PO QAM Discharge Statement: "Patient was advised to return to the ER or call 911 if any headaches, dizziness, shortness of breath, chest pain, abdominal pain, bleeding, fevers, or worsening of medical condition. Patient was counseled about treatment plan, medications, possible side effects, patientverbalized understanding. All questions were answered to the best of my ability. This discharge took greater then 30 minutes in planning, reviewing documentation, counseling the patient, and discussing with other team members." ASSESSMENT ASSESSMENT Assessment Cellulitis Sepsis due to above Date of Service: May 30, 2025 Billing Provider: RODDY BUSTILLOS MD Common Visit Codes: 24452-TOH/OBS DISCH DAY >30min CHRIS TAY RESIDENT May 30, 2025 14:16 RODDY BUSTILLOS MD May 31, 2025 13:42
--- NOTE | 2025-05-31 07:28 | ECG ---
[facility] Test Date: 2025-05-27 Test Time: 00:36:22 Pat Name: LETI NEW Department: [facility] ED Patient ID: [facility]-[id number] Room: 0279 B Gender: F Plate Setter: TIFFANIE : 1965 Requested By: KATHRYN DOW Order Number: [id number] Reading MD: Bandar Corrigan Measurements Intervals [place] Rate: 111 P: 67 PA: 179 QRS: 32 QRSD: 108 T: 68 QT: 349 QTc: 474 Interpretive Statements Sinus tachycardia Probable left atrial enlargement Electronically Signed On 06-01-2025 14:47:52 PST by Bandar Corrigan Please click the below link to view image of tracing.
== END 2025-05-30 16:00 | disposition home or self-care (01) | DRG 871 ==
LOC: ER 23:14 → OVERFLOW 05-27 02:17 → WEST WING 05-27 04:06
PROVIDERS: ATTEND Internal Medicine
DX: A41.9 Sepsis, unspecified organism (principal); I50.33 Acute on chronic diastolic (congestive) heart failure; I13.0 Hypertensive heart and chronic kidney disease with heart failure and stage 1 through stage 4 chronic kidney disease, or unspecified chronic kidney disease; L03.115 Cellulitis of right lower limb; E11.621 Type 2 diabetes mellitus with foot ulcer; E66.813 Obesity, class 3; Z68.43 Body mass index [BMI] 50.0-59.9, adult; I87.2 Venous insufficiency (chronic) (peripheral); Z20.822 Contact with and (suspected) exposure to COVID-19; L97.519 Non-pressure chronic ulcer of other part of right foot with unspecified severity; N18.2 Chronic kidney disease, stage 2 (mild); L40.0 Psoriasis vulgaris; I89.0 Lymphedema, not elsewhere classified; G89.29 Other chronic pain; M54.50 Low back pain, unspecified; I25.10 Atherosclerotic heart disease of native coronary artery without angina pectoris; E11.22 Type 2 diabetes mellitus with diabetic chronic kidney disease; F17.210 Nicotine dependence, cigarettes, uncomplicated; Z88.1 Allergy status to other antibiotic agents; Z90.710 Acquired absence of both cervix and uterus; Z90.49 Acquired absence of other specified parts of digestive tract; Z71.6 Tobacco abuse counseling
CPT/HCPCS: 36415; 71045; 73620; 80048; 80053; 80076; 80202; 80307; 81001; 82565; 82962; 83036; 83605; 83880; 84484; 85007; 85025; 85027; 85379; 85610; 85730; 87040; 87426; 87804; 93005; 93971; 97116; 97163; G0378; J1815; J2405